=== PATIENT | female | born 1945 | race Caucasian/White ===

== ENCOUNTER 2017-04-24 15:50 | Inpatient (IN) | payer MEDICARE, OTHER ==
[~2017-04-24] VITALS: Ht 142.2 cm; Wt 50.5 kg
[~2017-04-24 15:50] MED LIST: ALPR0.5T PO; ASCO100065 PO; AZIT250T PO; CALC-125 PO; CELE200C PO; CETI10TA22 PO; CHOL10002 PO; CLON0.5T20 PO; CYCL-331 PO; ELDERBERRY JUICE; FLUT1DIS5 IH; FOLI1TAB6 PO; GLUC1CAP57 PO; GREE1CAP PO; HERBAL ALOE; HYDR16TA PO; IPRA4AER IH; L LYSINE; LECI400C PO; LEVO500T8 PO; LUBI24CA7 PO; MOME17SP NS; MULT1TAB52 PO; NIAC50TA3 PO; NYST1000 PO; OLAN5TAB9 PO; OMEP40CA5 PO; ONDA4TAB7 PO; OXYC1TAB9 PO; POTA99TA10 PO; PRED2.5T PO; RALO60TA PO; RED600TA PO; ROFL500T7 PO; SENN8.6T61 PO; TIOT18CA IH; VALS160T3 PO; VALS1TAB8 PO; VITA150T PO; VITA400C11 PO; VITA80003 PO; ZOLP5TAB PO
[2017-04-24 16:41] VITALS: BP 138/67
[2017-04-24] MEDS ORDERED: OXYC30TA PO (17:18)
[2017-04-24] MEDS ORDERED: OXYC-328 PO (17:18)
[2017-04-24 19:16] LABS: BASO % 1 % (0-3); EOS # 0.2 x10^3/uL (0.0-0.7); EOS % 2 % (0-3); HEMATOCRIT 29.8 % (36.0-47.0); HEMOGLOBIN 10.1 g/dL (12.0-15.5); LYMPH # 1.9 x10^3/uL (1.0-4.8); LYMPH % 24 % (24-48); MEAN CORPUSCULAR HEMOGLOBIN 26 pg (25-35); MEAN CORPUSCULAR HGB CONC 34 g/dL (31-37); MEAN CORPUSCULAR VOLUME 77 fL (79-100); MONO # 0.7 x10^3/uL (0.0-1.1); MONO % 9 % (0-9); NEUT # 5.2 x10^3uL (1.8-7.7); NEUT % 65 % (31-73); PLATELET COUNT 260 x10^3/uL (140-400); RED BLOOD COUNT 3.86 x10^6/uL (3.50-5.40); RED CELL DISTRIBUTION WIDTH 17.2 % (11.5-14.5)
[2017-04-24] MEDS: oxyCODONE/APAP 10/325 1 TAB TABLET PO PRN (19:26)
[2017-04-24 19:33] LABS: ALBUMIN/GLOBULIN RATIO 1.1 (1.0-1.7); CALCIUM 8.3 mg/dL (8.5-10.1); CREATININE 0.9 mg/dL (0.6-1.0); GFR 61.4; POTASSIUM 3.3 mmol/L (3.5-5.1); TOTAL BILIRUBIN 0.3 mg/dL (0.2-1.0); TOTAL PROTEIN 5.8 g/dL (6.4-8.2)
[2017-04-24] MEDS ORDERED: IV NORMAL SALINE 1,000ML 1,000 ML IV SCH (19:45)
[2017-04-24 19:52] VITALS: BP 143/68
[2017-04-24] MEDS ORDERED: PRED5TAB PO (20:25)
[2017-04-24] MEDS ORDERED: ALBU2.5V5 NEB (20:26)
[2017-04-24] MEDS ORDERED: BUDE0.5A11 IH (20:27)
[2017-04-24] MEDS ORDERED: GUAI600T28 PO (20:28)
[2017-04-24] MEDS ORDERED: TAMS0.4C2 PO (20:29)
[2017-04-24] MEDS ORDERED: AZEL23SP NS (20:30)
[2017-04-24] MEDS ORDERED: ALOE25CA PO (20:30)
[2017-04-24] MEDS ORDERED: CALC600T23 PO (20:31)
[2017-04-24] MEDS ORDERED: POTA25TA9 PO (20:32)
[2017-04-24] MEDS ORDERED: LACT1CAP29 PO (20:33)
[2017-04-24] MEDS ORDERED: LABE100T3 PO (20:33)
[2017-04-24] MEDS ORDERED: LABE200T2 PO (20:35)
--- NOTE | 2017-04-24 21:25 | RAD ---
Single view chest Indication: [id number] IP: Cough, congestion, weakness tonight. Old image sent from 03/16/15 for comparison Comparison: March 16, 2015 Findings: The heart size is normal. Pulmonary vasculature is within normal limits. No pleural effusion, consolidation, or pneumothorax. Impression: No acute disease of the chest. Electronically signed by: Juan Black MD (04/24/2017 9:22 PM) [facility]
[2017-04-24 23:14] VITALS: BP 132/75
[2017-04-24] MEDS ORDERED: MAGNESIUM HYDROXIDE 2,400 MG/30 ML ORAL.SUSP. PO PRN (23:30)
[2017-04-24] MEDS ORDERED: NON FORMULARY ITEM (Ipratropium/Albuterol Sulfate (Combivent Respimat Inhal) 4 GM) IH PRN (23:30)
[2017-04-24] MEDS ORDERED: ACETAMINOPHEN 325 MG TABLET PO PRN (23:30)
[2017-04-24] MEDS ORDERED: ELECTROLYTE (NON-ICU) PROTOCOL MC PRN (23:30)
[2017-04-24] MEDS ORDERED: 0.9 % SODIUM CHLORIDE 10 ML DISP.SYRIN. IV PRN (23:30)
[2017-04-24] MEDS ORDERED: ALBUTEROL SULFATE 2.5 MG/3 ML NEBU. NEB PRN (23:30)
[2017-04-24 23:34] VITALS: BP 118/58
--- NOTE | 2017-04-24 23:42 | PDOC ---
PROGRESS NOTES Assessment 1. Severe hyponatremia: Notified by nursing staff at 2315 that pt direct admitted by Dr. Hernandez earlier this evening from [facility] due to "low sodium." I was told that pt was hospitalized recently at [facility] and was in rehab at [facility]. Per nurse, pt is on 75 mL/hr of normal saline. After reviewing her H&P and d/c summary from [facility], as well as her nephrology consultation and labs/ radiology procedures, I determined that pt had been treated with an initial hypertonic saline bolus on arrival to [facility] on 04/07. Her sodium corrected quite rapidly. It was thought to be low due to her HCTZ, and this was discontinued. Pt had also been on Levaquin prior to admission in March. Her sodium was reported to have been 118 in her PCP's hoffice prior to that admission in March. Per nurse, pt is stable but becoming agitated. She apparently has a history of dementia (mild), and was taken off Fentanyl patch while in the hospital previously. She was also treated for urinary retention with some hydronephrosis. She had a catheter placed by urology, but that has apparently been discontinued since she left the hospital. I have ordered accuchecks, neuro checks, seizure precautions, hypertonic saline at 50/hr for 2 hrs with a f /u BMP every 2 hours for the next 12 hours. Goal is to correct the sodium by 1 unit/hr. I would like to see her up to 123 or 124 after the bolus. Following the hypertonic saline we will give normal saline and PRN hypertonic if rate of correction falls off. Check urine sodium and creat. SIADH has not been ruled out, though the rapid rate of correction that occurred at [facility] would imply that is not the issue. I have restarted her home meds that are not likely to cause this problem. Her CXR is consistent w/ COPD, and we have continued her maximal bronchodilator therapy. Pt is a full code per nursing. Heparin for DVT prophylaxis. I have asked that they place a peguero in case her retention is contributing to her electrolyte issues. Hypokalemia COPD Urinary retention Problems: Plan of Care: see other orders Objective Vital Signs Date Time Temp Pulse Resp B/P (MAP) Pulse Ox O2 Delivery O2 Flow Rate FiO2 04/24/17 23:14 97.4 62 11 132/75 (94) 98 Room Air Review of Relevant I have reviewed the following items roxie (where applicable) has been applied. Labs Laboratory Tests Test 04/24/17 19:04 White Blood Count 8.0 x10^3/uL (4.0-11.0) Red Blood Count 3.86 x10^6/uL (3.50-5.40) Hemoglobin 10.1 g/dL (12.0-15.5) Hematocrit 29.8 % (36.0-47.0) Mean Corpuscular Volume 77 fL (79-100) Mean Corpuscular Hemoglobin 26 pg (25-35) Mean Corpuscular Hemoglobin Concent 34 g/dL (31-37) Red Cell Distribution Width 17.2 % (11.5-14.5) Platelet Count 260 x10^3/uL (140-400) Neutrophils (%) (Auto) 65 % (31-73) Lymphocytes (%) (Auto) 24 % (24-48) Monocytes (%) (Auto) 9 % (0-9) Eosinophils (%) (Auto) 2 % (0-3) Basophils (%) (Auto) 1 % (0-3) Neutrophils # (Auto) 5.2 x10^3uL (1.8-7.7) Lymphocytes # (Auto) 1.9 x10^3/uL (1.0-4.8) Monocytes # (Auto) 0.7 x10^3/uL (0.0-1.1) Eosinophils # (Auto) 0.2 x10^3/uL (0.0-0.7) Basophils # (Auto) 0.0 x10^3/uL (0.0-0.2) Sodium Level 121 mmol/L (136-145) Potassium Level 3.3 mmol/L (3.5-5.1) Chloride Level 89 mmol/L (98-107) Carbon Dioxide Level 22 mmol/L (21-32) Anion Gap 10 (6-14) Blood Urea Nitrogen 13 mg/dL (7-20) Creatinine 0.9 mg/dL (0.6-1.0) Estimated GFR (Cockcroft-Gault) 61.4 BUN/Creatinine Ratio 14 (6-20) Glucose Level 171 mg/dL (70-99) Calcium Level 8.3 mg/dL (8.5-10.1) Total Bilirubin 0.3 mg/dL (0.2-1.0) Aspartate Amino Transf (AST/SGOT) 16 U/L (15-37) Alanine Aminotransferase (ALT/SGPT) 21 U/L (14-59) Alkaline Phosphatase 70 U/L (46-116) Total Protein 5.8 g/dL (6.4-8.2) Albumin 3.0 g/dL (3.4-5.0) Albumin/Globulin Ratio 1.1 (1.0-1.7) Medications Current Medications Oxycodone/ Acetaminophen (Percocet 10/325) 1 tab PRN Q6HRS PRN PO PAIN Last administered on 04/24/17 19:26; Start 04/24/17 at 17:00 Sodium Chloride 1,000 ml @ 75 mls/hr [id number] IV Last administered on 20:44; Start 04/24/17 at 19:45 Sodium Chloride (Normal Saline Flush) 3 ml PRN DAILY PRN IV AFTER MEDS AND BLOOD DRAWS; Start 04/24/17 at 23:30; Status UNV Acetaminophen (Tylenol) 650 mg PRN Q6HRS PRN PO Headaches, Temp > 101.5F; Start 04/24/17 at 23:30; Status UNV Magnesium Hydroxide (Milk Of Magnesia) 2,400 mg PRN Q12HR PRN PO CONSTIPATION; Start 04/24/17 at 23:30; Status UNV Calcium Carbonate/ Glycine (Tums) 500 mg PRN Q3HRS PRN PO HEARTBURN / GAS; Start 04/24/17 at 23:30; Status UNV Info 1 ea CONT PRN PRN MC SEE COMMENTS; Start 04/24/17 at 23:30; Status UNV Heparin Sodium (Porcine) 5,000 unit Q12H SQ ; Start 04/24/17 at 23:30; Status UNV Sodium Chloride 500 ml @ 50 mls/hr DAILY IV ; Start 04/25/17 at 09:00; Status UNV Active Scripts Active Reported Labetalol Hcl 200 Mg Tablet 200 Mg PO TID Probiotic (Lactobacillus Combo No.10) 1 Each Capsule 1 Each PO DAILY Effer-K 25 Meq Tablet Eff (Potassium Bicarbonate/Cit Ac) 25 Meq Tablet.eff 25 Meq PO DAILY Calcium Carbonate 600 Mg Tablet 1,200 Mg PO DAILY Dymista Nasal [place] (Azelastine/Fluticasone) 23 Gm [place].pump 23 Gm NS BID Aloe Vera 25 Mg Capsule 25 Mg PO BID Tamsulosin Hcl 0.4 Mg Cap.er.24h 0.4 Mg PO DAILY Guaifenesin 600 Mg Tablet.er 600 Mg PO BID Budesonide 0.5 Mg/2 Ml Ampul.neb 0.5 Mg IH BID Albuterol Sulfate Neb Soln (Albuterol Sulfate) 2.5 Mg/3 Ml Vial.neb 2.5 Mg NEB PRN Q2HR PRN Prednisone 5 Mg Tablet 5 Mg PO DAILY Percocet 10-325 Mg Tablet (Oxycodone Hcl/Acetaminophen) 1 Each Tablet 1 Tab PO PRN Q6HRS PRN Oxycodone Hcl 30 Mg Tablet 1 Tab PO BID Combivent Respimat Inhal (Ipratropium/Albuterol Sulfate) 4 Gm Aer.w.adap 4 Gm IH QID PRN Multivitamins (Multivitamin) 1 Each Tablet 1 Tab PO DAILY Glucosamine Chondroitin Cap (Glucosamine/Chondroitin Sulf A) 1 Each Capsule 1 Each PO DAILY Super B Complex (Vitamin B Complex & Vit C No.4) 150 Mg Tablet 150 Mg PO DAILY Green Tea (Green Tea [place] Extract) 1 Each Capsule 1 Each PO DAILY Vitamin A 8,000 Unit Capsule 8,000 Unit PO DAILY Vitamin C (Ascorbic Acid) 1,000 Mg Tab.chew 1,000 Mg PO DAILY Vitamin E 400 Unit Capsule 400 Unit PO DAILY Vitamin D (Cholecalciferol (Vitamin D3)) 1,000 Unit Tablet 1,000 Unit PO DAILY Centrum Multivitamin Tab Chew (Folic Acid/Mv,Fe,Other Min) 1 Each Tab.chew 1 Each PO DAILY Daliresp (Roflumilast) 500 Mcg Tablet 500 Mcg PO DAILY Amitiza (Lubiprostone) 24 Mcg Capsule 24 Mcg PO BID Zyrtec (Cetirizine Hcl) 10 Mg Tablet 10 Mg PO DAILY Cyclobenzaprine Hcl 10 Mg Tablet 10 Mg PO DAILY Spiriva (Tiotropium [place]) 18 Mcg Cap.w.dev 18 Mcg IH DAILY Advair 500-50 Diskus (Fluticasone/Salmeterol) 1 Each Disk.w.dev 1 Each IH BID Clonazepam Odt (Clonazepam) 0.5 Mg Tab.rapdis 0.5 Mg PO DAILY Celebrex (Celecoxib) 200 Mg Capsule 200 Mg PO BID Evista (Raloxifene Hcl) 60 Mg Tablet 60 Mg PO DAILY Omeprazole 40 Mg Capsule.dr 40 Mg PO DAILY Vitals/I & O Vital Sign - Last 24 Hours 04/24/17 04/24/17 04/24/17 16:41 19:52 23:14 Temp 98.7 97.4 Pulse 69 69 62 Resp 16 23 11 B/P (MAP) 138/67 (90) 143/68 (93) 132/75 (94) Pulse Ox 98 98 O2 Delivery Room Air Room Air Room Air MALACHI RIVERA MD Apr 24, 2017 23:42
[2017-04-24] MEDS ORDERED: SODIUM CHLORIDE 3 % PREMIX 500 ML IV ONE (23:45)
[2017-04-25] VITALS (16 sets, daily range): BP systolic 113–180; BP diastolic 47–97
[2017-04-25] MEDS ORDERED: LORazepam 0.5 MG TABLET PO PRN
[2017-04-25] MEDS ORDERED: LORazepam 2 MG/ML VIAL IV PRN
[2017-04-25] MEDS ORDERED: ALBUTEROL SULFATE 2.5 MG/3 ML NEBU. NEB PRN (00:30)
[2017-04-25] MEDS: HEPARIN PF for SUB-Q USE 5,000 UNIT/0.5 ML VIAL. SQ SCH ×4 (00:49→21:17)
[2017-04-25] MEDS ORDERED: IV NORMAL SALINE 500 ML BAG ONE (01:00)
[2017-04-25] MEDS ORDERED: SODIUM CHLORIDE 2.5 MEQ/ML IV ONE (01:00)
[2017-04-25] MEDS: oxyCODONE/APAP 10/325 1 TAB TABLET PO PRN ×4 (01:29→18:12)
[2017-04-25] MEDS: POTASSIUM CL 20MEQ IN 0.9%NACL 1,000 ML IV SCH ×3 (02:02→21:03)
[2017-04-25 02:17] LABS: BACTERIA,URINE MANY /HPF (0-FEW); BILIRUBIN,URINE NEG (NEG); CLARITY,URINE HAZY; COLOR,URINE YELLOW; GLUCOSE,URINE NEG (NEG); NITRITE,URINE POS (NEG); RBC,URINE OCC /HPF (0-2); SQUAMOUS EPITHELIAL CELL,UR OCC /LPF; UROBILINOGEN,URINE 0.2 mg/dL (0.2 mg/dL); WBC,URINE >40 /HPF (0-4)
[2017-04-25 02:19] LABS: CREATININE 0.9 mg/dL (0.6-1.0); GFR 61.4; POTASSIUM 3.9 mmol/L (3.5-5.1)
[2017-04-25 04:20] LABS: BASO # 0.1 x10^3/uL (0.0-0.2); BASO % 1 % (0-3); EOS # 0.2 x10^3/uL (0.0-0.7); EOS % 2 % (0-3); HEMATOCRIT 31.5 % (36.0-47.0); HEMOGLOBIN 10.5 g/dL (12.0-15.5); LYMPH # 2.3 x10^3/uL (1.0-4.8); LYMPH % 24 % (24-48); MEAN CORPUSCULAR HEMOGLOBIN 26 pg (25-35); MEAN CORPUSCULAR HGB CONC 33 g/dL (31-37); MEAN CORPUSCULAR VOLUME 78 fL (79-100); MONO # 0.9 x10^3/uL (0.0-1.1); MONO % 9 % (0-9); NEUT % 63 % (31-73); PLATELET COUNT 277 x10^3/uL (140-400); RED BLOOD COUNT 4.05 x10^6/uL (3.50-5.40); RED CELL DISTRIBUTION WIDTH 17.1 % (11.5-14.5); WHITE BLOOD COUNT 9.4 x10^3/uL (4.0-11.0)
[2017-04-25 04:32] LABS: ALBUMIN 3.1 g/dL (3.4-5.0); CALCIUM 8.6 mg/dL (8.5-10.1); CREATININE 0.8 mg/dL (0.6-1.0); GFR 70.3; POTASSIUM 3.9 mmol/L (3.5-5.1); TOTAL BILIRUBIN 0.4 mg/dL (0.2-1.0); TOTAL PROTEIN 6.1 g/dL (6.4-8.2)
[2017-04-25] MEDS: ALBUTEROL SULFATE 2.5 MG/3 ML NEBU. NEB SCH ×4 (05:50→20:27)
[2017-04-25 06:40] LABS: CALCIUM 8.6 mg/dL (8.5-10.1); CREATININE 0.7 mg/dL (0.6-1.0); POTASSIUM 3.4 mmol/L (3.5-5.1)
[2017-04-25] MEDS ORDERED: POTASSIUM CHLORIDE 20 MEQ TABLET.ER. PO ONE (07:00)
[2017-04-25] MEDS: PANTOPRAZOLE 40 MG TABLET. PO SCH (07:34)
[2017-04-25] MEDS ORDERED: NON FORMULARY ITEM (Fluticasone/Salmeterol (Advair 500-50 Diskus) 1 EACH) IH SCH (09:00)
[2017-04-25] MEDS ORDERED: ALOE VERA 25 MG PO SCH (09:00)
[2017-04-25] MEDS: POTASSIUM BICARB 25 MEQ EFFERVESCENT TAB. PO SCH (09:00)
[2017-04-25] MEDS ORDERED: AZELASTINE NASAL SPRAY 30ML BOTTLE. NS SCH ×2 (09:00)
[2017-04-25] MEDS ORDERED: BUDESONIDE 0.5 MG/2 ML NEBU IH SCH (09:00)
[2017-04-25 09:30] LABS: CALCIUM 8.2 mg/dL (8.5-10.1); CREATININE 0.7 mg/dL (0.6-1.0)
[2017-04-25] MEDS: LACTOBACILLUS ACIDOPH & BULGAR 1 TABLET. PO SCH (09:40)
[2017-04-25] MEDS: FLUTICASONE 50MCG/NASAL SPRAY 16GM BOTTLE. NS SCH ×2 (09:40→21:03)
[2017-04-25] MEDS: clonazePAM 0.5 MG TABLET PO SCH (09:41)
[2017-04-25] MEDS: predniSONE 5 MG TABLET PO SCH (09:41)
[2017-04-25] MEDS: ROFLUMILAST 500 MCG TABLET PO SCH (09:41)
[2017-04-25] MEDS: TAMSULOSIN 0.4 MG CAP.ER.24H. PO SCH (09:41)
[2017-04-25] MEDS: MULTIVITAMIN with MINERAL TABLET. PO SCH (09:43)
[2017-04-25] MEDS: LABETALOL HCL 200 MG TABLET PO SCH ×3 (09:43→21:02)
[2017-04-25] MEDS: LUBIPROSTONE 24 MCG CAPSULE PO SCH ×2 (09:44→20:55)
[2017-04-25] MEDS: ASCORBIC ACID 500 MG TABLET PO SCH (09:44)
[2017-04-25] MEDS ORDERED: FOSFOMYCIN TROMETHAMINE 3 GM PACKET PO ONE (10:00)
--- NOTE | 2017-04-25 10:04 | PDOC1 ---
History of Present Illness Reason for Visit: Weakness History of Present Illness Pt has been getting rehab at [facility] for the past 2 weeks after having been admitted to [facility] at the end of March for hyponatremia, COPD, and hypokalemia. She also was found to have profound urinary retention. Pt's sodium was found to be low at 122 at [facility] so she was direct admitted by Dr. Hernandez. She tells me this morning that she stopped taking the diuretic after the last hospital stay, and the medication administration record from [facility] confirms that. She says she doesn't normally take daily prednisone, that it is only as needed for when her COPD acts up. She is not sure about any new medications. Her family member present today states that her difficult urinating was "solved " at [facility], and she no longer required the urinary catheter. She denies excessive water intake. Denies excessive swelling. No known history of liver disease. Pt's urine sodium 2 days after admission at [facility] was 26, which is on the low side. Pt was treated w/ hypertonic, then normal saline and sodium corrected rather quickly, was in the mid 130's at discharge. Today she feels "fine." Per nursing, she continues to be confused and periodically pulls at her IV and it is difficult to get her to take medications. Last night we had to stop the hypertonic saline infusion as she appeared to have a bad reaction. There have been no fevers, cough, diarrhea, vomiting, abdominal pain, etc. She does have a known umbilical hernia. Urinary catheter was placed last night w/ 600 cc urine resulted. Allergies: Coded Allergies: fentanyl (Verified Allergy, Severe, 04/24/17) Penicillins (Verified Allergy, Intermediate, 08/11/14) Sulfa (Sulfonamide Antibiotics) (Verified Allergy, Intermediate, 04/25/17) levofloxacin (Verified Allergy, Intermediate, 08/11/14) Past Medical History Cardiac: HTN Pulmonary: COPD GI: Diverticulosis, Other (Cholelithiasis, Umbilical hernia) Heme/Onc: Anemia NOS Past Surgical History: No pertinent history Family History: Hypertension Past Social History Smoke: Quit Alcohol: occassional Drugs: None Lives: with Family (Currently in [facility], normally lives w/ her family) Review of Systems Review Of Systems Fourteen system , review of systems has been reviewed. See HPI for pertinent positives and negative responses, other bourgeois all other systems are negative, non pertinent or non contributory Constitutional: No: Fever, Chills, Sweats Eyes: No: Blurry vision, Double vision ENT: No: Ear pain, Nose pain, Mouth pain Respiratory: No: Cough, Shortness of breath Cardiovascular: No: Chest Pain, Palpitations, Edema, Lt Headedness Gastrointestinal: No: Nausea, Vomiting, Abdominal Pain, Diarrhea, Constipation , Melena, Hematochezia Genitourinary: No: Dysuria, Henaturia Musculoskeletal: No: Joint Swelling, Muscular Weakness SKIN: YES: Other (Bruising; skin tears on RLE (family reports from [facility] [facility])) Neurological: YES: Memory Loss (chronic, mild), No: Dizziness, Headaches, Tremors Allergies: Coded Allergies: fentanyl (Verified Allergy, Severe, 04/24/17) Penicillins (Verified Allergy, Intermediate, 08/11/14) Sulfa (Sulfonamide Antibiotics) (Verified Allergy, Intermediate, 04/25/17) levofloxacin (Verified Allergy, Intermediate, 08/11/14) Medications Current Medications Oxycodone/ Acetaminophen (Percocet 10/325) 1 tab PRN Q6HRS PRN PO PAIN Last administered on 04/25/17 08:33; Start 04/24/17 at 17:00 Sodium Chloride 1,000 ml @ 75 mls/hr [id number] IV Last administered on 20:44; Start 04/24/17 at 19:45 Sodium Chloride (Normal Saline Flush) 3 ml PRN DAILY PRN IV AFTER MEDS AND BLOOD DRAWS; Start 04/24/17 at 23:30 Acetaminophen (Tylenol) 650 mg PRN Q6HRS PRN PO Headaches, Temp > 101.5F; Start 04/24/17 at 23:30 Magnesium Hydroxide (Milk Of Magnesia) 2,400 mg PRN Q12HR PRN PO CONSTIPATION; Start 04/24/17 at 23:30 Calcium Carbonate/ Glycine (Tums) 500 mg PRN Q3HRS PRN PO HEARTBURN / GAS; Start 04/24/17 at 23:30 Info 1 ea CONT PRN PRN MC SEE COMMENTS; Start 04/24/17 at 23:30 Heparin Sodium (Porcine) 5,000 unit Q12H SQ Last administered on 04/25/17 00: 49; Start 04/24/17 at 23:45 Sodium Chloride 500 ml @ 50 mls/hr ONCE ONCE IV Last administered on t 01:09; Start 04/24/17 at 23:45; Stop 04/25/17 at 09:44; Status Future Hold Albuterol Sulfate (Ventolin) 2.5 mg PRN Q2HR PRN NEB SHORTNESS OF BREATH; Start 04/24/17 at 23:30; Stop 04/25/17 at 01:51; Status DC Budesonide (Pulmicort) 0.5 mg BID IH ; Start 04/25/17 at 09:00; Stop 04/25/17 at 09:00; Status DC Guaifenesin (Mucinex Er) 600 mg BID PO ; Start 04/25/17 at 09:00 Labetalol HCl (Trandate) 200 mg TID PO ; Start 04/25/17 at 09:00 Lubiprostone (Amitiza) 24 mcg BID PO ; Start 04/25/17 at 09:00 Potassium Bicarbonate (Klyte/Cl) 25 meq DAILY PO ; Start 04/25/17 at 09:00 Prednisone (Prednisone) 5 mg DAILY PO ; Start 04/25/17 at 09:00 Tamsulosin HCl (Flomax) 0.4 mg DAILY PO ; Start 04/25/17 at 09:00 Non-Formulary Medication 25 mg BID PO ; Start 04/25/17 at 09:00; Stop 04/25/17 at 09:00; Status DC Ascorbic Acid (Vitamin C) 1,000 mg DAILY PO ; Start 04/25/17 at 09:00 Azelastine HCl (Astelin) 2 spray BID NS ; Start 04/25/17 at 09:00; Stop at 09:00; Status DC Clonazepam (KlonoPIN) 0.5 mg DAILY PO ; Start 04/25/17 at 09:00 Non-Formulary Medication 1 each BID IH ; Start 04/25/17 at 09:00; Status UNV Multivitamins/ Calcium (Thera-M Plus) 1 tab DAILY PO ; Start 04/25/17 at 09:00 Non-Formulary Medication 4 gm QID PRN IH SHORTNESS OF BREATH; Start 04/24/17 at 23:30; Status UNV Lactobacillus Acidophilus (Bacid, Beth-Bid) 1 tab DAILY PO ; Start 04/25/17 at 09:00 Pantoprazole Sodium (Protonix) 40 mg DAILYAC PO Last administered on 04/25/17 07:34; Start 04/25/17 at 07:30 Lorazepam (Ativan) 0.5 mg PRN Q8HRS PRN IV ANXIETY / AGITATION Last administered on 04/25/17 00:27; Start 04/25/17 at 00:00; Status Future Hold Lorazepam (Ativan) 0.5 mg PRN Q8HRS PRN PO ANXIETY / AGITATION; Start 04/25/17 at 00:00; Status Future Hold Albuterol Sulfate (Ventolin) 2.5 mg PRN QID PRN NEB SHORTNESS OF BREATH; Start 04/25/17 at 00:30 Potassium Chloride/Sodium Chloride 1,000 ml @ 100 mls/hr Q10H IV Last administered on 04/25/17 02:02; Start 04/25/17 at 01:45 Albuterol Sulfate (Ventolin) 2.5 mg RTQID NEB ; Start 04/25/17 at 08:00 Budesonide (Pulmicort) 0.5 mg RTBID NEB ; Start 04/25/17 at 08:00 Potassium Chloride (Klor-Con) 40 meq 1X ONCE PO Last administered on 07:34; Start 04/25/17 at 07:00; Stop 04/25/17 at 07:01; Status DC Fluticasone Propionate (Flonase) 1 spray BID NS ; Start 04/25/17 at 09:00 Azelastine HCl (Astelin) 1 spray BID NS ; Start 04/25/17 at 09:00 Sodium Chloride (Iv Sodium Chloride 0.9% 500ml) 500 ml STK-MED ONCE .ROUTE ; Start 04/25/17 at 01:00; Stop 04/25/17 at 07:32; Status DC Sodium Chloride (Sodium Chloride) 5 meq STK-MED ONCE IV ; Start 04/25/17 at 01: 00; Stop 04/25/17 at 07:32; Status DC Fosfomycin Tromethamine (Monurol) 3 gm 1X ONCE PO ; Start 04/25/17 at 09:30; Stop 04/25/17 at 09:31; Status UNV Active Scripts Active Reported Labetalol Hcl 200 Mg Tablet 200 Mg PO TID Probiotic (Lactobacillus Combo No.10) 1 Each Capsule 1 Each PO DAILY Effer-K 25 Meq Tablet Eff (Potassium Bicarbonate/Cit Ac) 25 Meq Tablet.eff 25 Meq PO DAILY Calcium Carbonate 600 Mg Tablet 1,200 Mg PO DAILY Dymista Nasal [place] (Azelastine/Fluticasone) 23 Gm [place].pump 23 Gm NS BID Aloe Vera 25 Mg Capsule 25 Mg PO BID Tamsulosin Hcl 0.4 Mg Cap.er.24h 0.4 Mg PO DAILY Guaifenesin 600 Mg Tablet.er 600 Mg PO BID Budesonide 0.5 Mg/2 Ml Ampul.neb 0.5 Mg IH BID Albuterol Sulfate Neb Soln (Albuterol Sulfate) 2.5 Mg/3 Ml Vial.neb 2.5 Mg NEB PRN Q2HR PRN Prednisone 5 Mg Tablet 5 Mg PO DAILY Percocet 10-325 Mg Tablet (Oxycodone Hcl/Acetaminophen) 1 Each Tablet 1 Tab PO PRN Q6HRS PRN Oxycodone Hcl 30 Mg Tablet 1 Tab PO BID Combivent Respimat Inhal (Ipratropium/Albuterol Sulfate) 4 Gm Aer.w.adap 4 Gm IH QID PRN Multivitamins (Multivitamin) 1 Each Tablet 1 Tab PO DAILY Glucosamine Chondroitin Cap (Glucosamine/Chondroitin Sulf A) 1 Each Capsule 1 Each PO DAILY Super B Complex (Vitamin B Complex & Vit C No.4) 150 Mg Tablet 150 Mg PO DAILY Green Tea (Green Tea [place] Extract) 1 Each Capsule 1 Each PO DAILY Vitamin A 8,000 Unit Capsule 8,000 Unit PO DAILY Vitamin C (Ascorbic Acid) 1,000 Mg Tab.chew 1,000 Mg PO DAILY Vitamin E 400 Unit Capsule 400 Unit PO DAILY Vitamin D (Cholecalciferol (Vitamin D3)) 1,000 Unit Tablet 1,000 Unit PO DAILY Centrum Multivitamin Tab Chew (Folic Acid/Mv,Fe,Other Min) 1 Each Tab.chew 1 Each PO DAILY Daliresp (Roflumilast) 500 Mcg Tablet 500 Mcg PO DAILY Amitiza (Lubiprostone) 24 Mcg Capsule 24 Mcg PO BID Zyrtec (Cetirizine Hcl) 10 Mg Tablet 10 Mg PO DAILY Cyclobenzaprine Hcl 10 Mg Tablet 10 Mg PO DAILY Spiriva (Tiotropium [place]) 18 Mcg Cap.w.dev 18 Mcg IH DAILY Advair 500-50 Diskus (Fluticasone/Salmeterol) 1 Each Disk.w.dev 1 Each IH BID Clonazepam Odt (Clonazepam) 0.5 Mg Tab.rapdis 0.5 Mg PO DAILY Celebrex (Celecoxib) 200 Mg Capsule 200 Mg PO BID Evista (Raloxifene Hcl) 60 Mg Tablet 60 Mg PO DAILY Omeprazole 40 Mg Capsule.dr 40 Mg PO DAILY Exam Vital Signs Vital Signs Date Time Temp Pulse Resp B/P (MAP) Pulse Ox O2 Delivery O2 Flow Rate FiO2 04/25/17 07:30 74 22 149/66 (93) 98 Room Air 04/25/17 04:21 97.1 General Appearance: Alert, Cooperative, No acute distress, Other (Oriented x 2 (not date), able to recount most of what happened when at [facility]) HEENT: Atraumatic, PERRLA, EOMI, Mucous membr. moist/pink, Other (Neck supple, normal ROM, no JVD, no LAD) Respiratory: Other (Diminished breath sounds in the bases w/ coarse breath sounds throughout. Resp effort is non-labored.) Heart: Regular rate, Normal S1, Normal S2, No murmurs Cardiac: HTN Abdominal: Normal bowel sounds, Soft, No tenderness, No hepatospenomegaly, Other (Small umbilical hernia, reducible) Extremities: Other (DP pulses 2+ bilaterally, no significant LE edema. RLE w/ 2 bandages both C/D/I, reportedly skin tears.) Skin: No rashes Neuro: Normal gait (Slowed, can walk w/ assistance), Normal speech, Sensation intact, Cranial nerves 3-12 NL Psych/Mental Status: Mood NL Assessment/Plan Assessment/Plan 1. Severe symptomatic hyponatremia: Sodium is up to 128. Pt on NS at 100/hr. Monitoring for signs of volume overload, none seen at this point. Urine sodium pending. During stay at [facility], pt was seen by nephrology and the cause of her low sodium was felt to be her HCTZ. This was discontinued and pt has not been on it for 2 weeks. I am not certain about the cause at this time. Her urine sodium would certainly suggest hypovolemia or primary polydipsia, but there is not convincing evidence of either. SIADH is considered, but I would expect her urine sodium to be higher. Adrenal issues could be in play as well, given her low potassium. I am going to get a CT of her head and chest looking for intracranial or primary malignant causes. We will stop the q2 hour BMP's after the next check as long as sodium continuing to go up. 2. Hypokalemia: Replacement via PO and in IVF. Cont to monitor. 3. COPD: Pt stable, CXR normal, respiratory status stable. Continue home bronchodilators and 5 mg prednisone (as it is unclear how long she has been on this). 4. DVT proph: Heparin BID SQ, pt is at least moderate risk for DVT. 5. Anemia, etiology unclear: Microcytic, unclear if she has been worked up but Hgb stable. Continue PPI. Check iron studies as outpatient, would also need workup for GI losses if not done recently. 6. Mild-mod PEM: Add Ensure BID. Albumin 3.1. Pt is on the thin side, <100 lbs. 7. Disp: Pt is ICU status. Certainly expect at least 2 midnights to treat and investigate her multiple medical issues. COURSE Allergies Coded Allergies Type Severity Reaction Last Updated Verified fentanyl Allergy Severe 04/24/17 Yes Penicillins Allergy Intermediate 08/11/14 Yes Sulfa (Sulfonamide Antibiotics) Allergy Intermediate 04/25/17 Yes levofloxacin Allergy Intermediate 08/11/14 Yes Laboratory Tests Test 04/24/17 19:04 04/25/17 01:25 04/25/17 01:38 04/25/17 01:55 White Blood Count 8.0 x10^3/uL (4.0-11.0) Red Blood Count 3.86 x10^6/uL (3.50-5.40) Hemoglobin 10.1 g/dL (12.0-15.5) Hematocrit 29.8 % (36.0-47.0) Mean Corpuscular Volume 77 fL (79-100) Mean Corpuscular Hemoglobin 26 pg (25-35) Mean Corpuscular Hemoglobin Concent 34 g/dL (31-37) Red Cell Distribution Width 17.2 % (11.5-14.5) Platelet Count 260 x10^3/uL (140-400) Neutrophils (%) (Auto) 65 % (31-73) Lymphocytes (%) (Auto) 24 % (24-48) Monocytes (%) (Auto) 9 % (0-9) Eosinophils (%) (Auto) 2 % (0-3) Basophils (%) (Auto) 1 % (0-3) Neutrophils # (Auto) 5.2 x10^3uL (1.8-7.7) Lymphocytes # (Auto) 1.9 x10^3/uL (1.0-4.8) Monocytes # (Auto) 0.7 x10^3/uL (0.0-1.1) Eosinophils # (Auto) 0.2 x10^3/uL (0.0-0.7) Basophils # (Auto) 0.0 x10^3/uL (0.0-0.2) Sodium Level 121 mmol/L (136-145) 124 mmol/L (136-145) Potassium Level 3.3 mmol/L (3.5-5.1) 3.9 mmol/L (3.5-5.1) Chloride Level 89 mmol/L (98-107) 91 mmol/L (98-107) Carbon Dioxide Level 22 mmol/L (21-32) 25 mmol/L (21-32) Anion Gap 10 (6-14) 8 (6-14) Blood Urea Nitrogen 13 mg/dL (7-20) 13 mg/dL (7-20) Creatinine 0.9 mg/dL (0.6-1.0) 0.9 mg/dL (0.6-1.0) Estimated GFR (Cockcroft-Gault) 61.4 61.4 BUN/Creatinine Ratio 14 (6-20) Glucose Level 171 mg/dL (70-99) 84 mg/dL (70-99) Calcium Level 8.3 mg/dL (8.5-10.1) 9.0 mg/dL (8.5-10.1) Total Bilirubin 0.3 mg/dL (0.2-1.0) Aspartate Amino Transf (AST/SGOT) 16 U/L (15-37) Alanine Aminotransferase (ALT/SGPT) 21 U/L (14-59) Alkaline Phosphatase 70 U/L (46-116) Total Protein 5.8 g/dL (6.4-8.2) Albumin 3.0 g/dL (3.4-5.0) Albumin/Globulin Ratio 1.1 (1.0-1.7) Urine Collection Type Void Urine Color Yellow Urine Clarity Hazy Urine pH 7.0 Urine Specific [place] 1.010 Urine Protein Neg (NEG-TRACE) Urine Glucose (UA) Neg mg/dL (NEG) Urine Ketones (Stick) Neg mg/dL (NEG) Urine Blood Neg (NEG) Urine Nitrite Pos (NEG) Urine Bilirubin Neg (NEG) Urine Urobilinogen Dipstick 0.2 mg/dL (0.2 mg/dL) Urine Leukocyte Esterase Mod (NEG) Urine RBC Occ /HPF (0-2) Urine WBC >40 /HPF (0-4) Urine Squamous Epithelial Cells Occ /LPF Urine Bacteria Many /HPF (0-FEW) Urine Mucus Slight /LPF Glucose (Fingerstick) 75 mg/dL (70-99) Test 04/25/17 04:05 04/25/17 06:23 04/25/17 07:30 04/25/17 08:50 White Blood Count 9.4 x10^3/uL (4.0-11.0) Red Blood Count 4.05 x10^6/uL (3.50-5.40) Hemoglobin 10.5 g/dL (12.0-15.5) Hematocrit 31.5 % (36.0-47.0) Mean Corpuscular Volume 78 fL (79-100) Mean Corpuscular Hemoglobin 26 pg (25-35) Mean Corpuscular Hemoglobin Concent 33 g/dL (31-37) Red Cell Distribution Width 17.1 % (11.5-14.5) Platelet Count 277 x10^3/uL (140-400) Neutrophils (%) (Auto) 63 % (31-73) Lymphocytes (%) (Auto) 24 % (24-48) Monocytes (%) (Auto) 9 % (0-9) Eosinophils (%) (Auto) 2 % (0-3) Basophils (%) (Auto) 1 % (0-3) Neutrophils # (Auto) 6.0 x10^3uL (1.8-7.7) Lymphocytes # (Auto) 2.3 x10^3/uL (1.0-4.8) Monocytes # (Auto) 0.9 x10^3/uL (0.0-1.1) Eosinophils # (Auto) 0.2 x10^3/uL (0.0-0.7) Basophils # (Auto) 0.1 x10^3/uL (0.0-0.2) Sodium Level 127 mmol/L (136-145) 127 mmol/L (136-145) 128 mmol/L (136-145) Potassium Level 3.9 mmol/L (3.5-5.1) 3.4 mmol/L (3.5-5.1) 4.0 mmol/L (3.5-5.1) Chloride Level 93 mmol/L (98-107) 94 mmol/L (98-107) 97 mmol/L (98-107) Carbon Dioxide Level 27 mmol/L (21-32) 27 mmol/L (21-32) 25 mmol/L (21-32) Anion Gap 7 (6-14) 6 (6-14) 6 (6-14) Blood Urea Nitrogen 11 mg/dL (7-20) 10 mg/dL (7-20) 9 mg/dL (7-20) Creatinine 0.8 mg/dL (0.6-1.0) 0.7 mg/dL (0.6-1.0) 0.7 mg/dL (0.6-1.0) Estimated GFR (Cockcroft-Gault) 70.3 82.0 82.0 BUN/Creatinine Ratio 14 (6-20) Glucose Level 86 mg/dL (70-99) 88 mg/dL (70-99) 94 mg/dL (70-99) Calcium Level 8.6 mg/dL (8.5-10.1) 8.6 mg/dL (8.5-10.1) 8.2 mg/dL (8.5-10.1) Total Bilirubin 0.4 mg/dL (0.2-1.0) Aspartate Amino Transf (AST/SGOT) 16 U/L (15-37) Alanine Aminotransferase (ALT/SGPT) 21 U/L (14-59) Alkaline Phosphatase 68 U/L (46-116) Total Protein 6.1 g/dL (6.4-8.2) Albumin 3.1 g/dL (3.4-5.0) Albumin/Globulin Ratio 1.0 (1.0-1.7) Glucose (Fingerstick) 77 mg/dL (70-99) Current Medications Medications (Trade) Dose Ordered Sig/Branden Route PRN Reason Start Time Stop Time Status Last Admin Dose Admin Oxycodone/ Acetaminophen (Percocet 10/325) 1 tab PRN Q6HRS PRN PO PAIN 04/24/17 17:00 04/25/17 08:33 Sodium Chloride 1,000 ml @ 75 mls/hr [id number] IV 04/24/17 19:45 04/24/17 20:44 Sodium Chloride (Normal Saline Flush) 3 ml PRN DAILY PRN IV AFTER MEDS AND BLOOD DRAWS 04/24/17 23:30 Acetaminophen (Tylenol) 650 mg PRN Q6HRS PRN PO Headaches, Temp > 101.5F 04/24/17 23:30 Magnesium Hydroxide (Milk Of Magnesia) 2,400 mg PRN Q12HR PRN PO CONSTIPATION 04/24/17 23:30 Calcium Carbonate/ Glycine (Tums) 500 mg PRN Q3HRS PRN PO HEARTBURN / GAS 04/24/17 23:30 Info 1 ea CONT PRN PRN MC SEE COMMENTS 04/24/17 23:30 Heparin Sodium (Porcine) 5,000 unit Q12H SQ 04/24/17 23:45 04/25/17 00:49 Sodium Chloride 500 ml @ 50 mls/hr ONCE ONCE IV 04/24/17 23:45 04/25/17 09:44 Future Hold 04/25/17 01:09 Albuterol Sulfate (Ventolin) 2.5 mg PRN Q2HR PRN NEB SHORTNESS OF BREATH 04/24/17 23:30 04/25/17 01:51 DC Budesonide (Pulmicort) 0.5 mg BID IH 04/25/17 09:00 04/25/17 09:00 DC Guaifenesin (Mucinex Er) 600 mg BID PO 04/25/17 09:00 Labetalol HCl (Trandate) 200 mg TID PO 04/25/17 09:00 Lubiprostone (Amitiza) 24 mcg BID PO 04/25/17 09:00 Potassium Bicarbonate (Klyte/Cl) 25 meq DAILY PO 04/25/17 09:00 Prednisone (Prednisone) 5 mg DAILY PO 04/25/17 09:00 Tamsulosin HCl (Flomax) 0.4 mg DAILY PO 04/25/17 09:00 Non-Formulary Medication 25 mg BID PO 04/25/17 09:00 04/25/17 09:00 DC Ascorbic Acid (Vitamin C) 1,000 mg DAILY PO 04/25/17 09:00 Azelastine HCl (Astelin) 2 spray BID NS 04/25/17 09:00 04/25/17 09:00 DC Clonazepam (KlonoPIN) 0.5 mg DAILY PO 04/25/17 09:00 Non-Formulary Medication 1 each BID IH 04/25/17 09:00 UNV Multivitamins/ Calcium (Thera-M Plus) 1 tab DAILY PO 04/25/17 09:00 Non-Formulary Medication 4 gm QID PRN IH SHORTNESS OF BREATH 04/24/17 23:30 UNV Lactobacillus Acidophilus (Bacid, Beth-Bid) 1 tab DAILY PO 04/25/17 09:00 Pantoprazole Sodium (Protonix) 40 mg DAILYAC PO 04/25/17 07:30 04/25/17 07:34 Lorazepam (Ativan) 0.5 mg PRN Q8HRS PRN IV ANXIETY / AGITATION 04/25/17 00:00 Future Hold 04/25/17 00:27 Lorazepam (Ativan) 0.5 mg PRN Q8HRS PRN PO ANXIETY / AGITATION 04/25/17 00:00 Future Hold Albuterol Sulfate (Ventolin) 2.5 mg PRN QID PRN NEB SHORTNESS OF BREATH 04/25/17 00:30 Potassium Chloride/Sodium Chloride 1,000 ml @ 100 mls/hr Q10H IV 04/25/17 01:45 04/25/17 02:02 Albuterol Sulfate (Ventolin) 2.5 mg RTQID NEB 04/25/17 08:00 Budesonide (Pulmicort) 0.5 mg RTBID NEB 04/25/17 08:00 Potassium Chloride (Klor-Con) 40 meq 1X ONCE PO 04/25/17 07:00 04/25/17 07:01 DC 04/25/17 07:34 Fluticasone Propionate (Flonase) 1 spray BID NS 04/25/17 09:00 Azelastine HCl (Astelin) 1 spray BID NS 04/25/17 09:00 Sodium Chloride (Iv Sodium Chloride 0.9% 500ml) 500 ml STK-MED ONCE .ROUTE 04/25/17 01:00 04/25/17 07:32 DC Sodium Chloride (Sodium Chloride) 5 meq STK-MED ONCE IV 04/25/17 01:00 04/25/17 07:32 DC Fosfomycin Tromethamine (Monurol) 3 gm 1X ONCE PO 04/25/17 09:30 04/25/17 09:31 UNV I & O 04/25/17 00:00 Intake Total 345 ml Balance 345 ml Vital Signs Date Time Temp Pulse Resp B/P (MAP) Pulse Ox O2 Delivery O2 Flow Rate FiO2 04/25/17 07:30 74 22 149/66 (93) 98 Room Air 04/25/17 04:21 97.1 CXR: Single view chest Indication: [id number] IP: Cough, congestion, weakness tonight. Old image sent from 03/16/15 for comparison Comparison: March 16, 2015 Findings: The heart size is normal. Pulmonary vasculature is within normal limits. No pleural effusion, consolidation, or pneumothorax. Impression: No acute disease of the chest. MALACHI RIVERA MD Apr 25, 2017 10:04
[2017-04-25] MEDS: BUDESONIDE 0.5 MG/2 ML NEBU NEB SCH ×2 (10:14→20:27)
[2017-04-25 11:34] LABS: CALCIUM 8.8 mg/dL (8.5-10.1); CREATININE 0.7 mg/dL (0.6-1.0)
--- NOTE | 2017-04-25 11:36 | RAD ---
One or more of the following individualized dose reduction techniques were utilized for this examination: 1. Automated exposure control 2. Adjustment of the mA and/or kV according to patient size 3. Use of iterative reconstruction technique CT brain without contrast. History: Weakness, hyponatremia CT scan of brain was done without contrast. There is no intracranial hemorrhage or subdural hematoma. Ventricles are normal in size. There is no shift of the midline or mass noted. There is decreased density in the white matter from chronic microvascular changes similar to an old study. Possible old white matter lacunar infarct in the left frontal lobe. There is no acute CVA noted. There is chronic mucosal thickening in the ethmoid sinuses. Impression: 1. No hemorrhage or acute CVA noted.
--- NOTE | 2017-04-25 13:00 | RAD ---
One or more of the following individualized dose reduction techniques were utilized for this examination: 1. Automated exposure control 2. Adjustment of the mA and/or kV according to patient size 3. Use of iterative reconstruction technique CT chest without contrast. History: COPD, hyponatremia CT of the chest was done without contrast. There is moderate carotid artery calcification at the carotid bifurcations. There is a thyroid nodule on the left towards the lower pole. There are calcified hilar and mediastinal lymph nodes from old granulomatous disease. There is no other mediastinal adenopathy. There is no pleural effusion. There are bilateral breast implants. A definite liver lesion is not identified in the upper liver. There is respiratory motion artifact which limits evaluation. There are changes of chronic obstructive pulmonary disease. There is mild fibrosis. A dominant mass is not identified. A subtle lesion could be obscured by the motion. There are granulomatous in the left lower lobe. There are old right rib fractures. Impression: 1. COPD and mild fibrosis. 2. Limited by motion artifact. 3. No definitive mass identified. 4. Left thyroid nodule.
[2017-04-25 14:51] LABS: CREATININE 0.8 mg/dL (0.6-1.0); GFR 70.3; POTASSIUM 3.8 mmol/L (3.5-5.1)
[2017-04-25] MEDS: AZELASTINE NASAL SPRAY 30ML BOTTLE. NS SCH (21:03)
[2017-04-25] MEDS: NICOTINE 21MG PATCH. TD SCH (21:03)
[2017-04-26] VITALS (8 sets, daily range): BP systolic 138–179; BP diastolic 57–100
[2017-04-26] MEDS: oxyCODONE/APAP 10/325 1 TAB TABLET PO PRN ×5 (02:52→19:46)
[2017-04-26] MEDS: POTASSIUM CL 20MEQ IN 0.9%NACL 1,000 ML IV SCH (05:30)
[2017-04-26] MEDS: ALBUTEROL SULFATE 2.5 MG/3 ML NEBU. NEB SCH ×4 (05:32→20:00)
[2017-04-26 07:17] LABS: BASO % 1 % (0-3); EOS # 0.1 x10^3/uL (0.0-0.7); EOS % 2 % (0-3); HEMATOCRIT 31.9 % (36.0-47.0); HEMOGLOBIN 10.6 g/dL (12.0-15.5); LYMPH # 1.6 x10^3/uL (1.0-4.8); LYMPH % 21 % (24-48); MEAN CORPUSCULAR HEMOGLOBIN 26 pg (25-35); MEAN CORPUSCULAR HGB CONC 33 g/dL (31-37); MEAN CORPUSCULAR VOLUME 79 fL (79-100); MONO # 0.7 x10^3/uL (0.0-1.1); MONO % 9 % (0-9); NEUT # 5.1 x10^3uL (1.8-7.7); NEUT % 68 % (31-73); PLATELET COUNT 273 x10^3/uL (140-400); RED BLOOD COUNT 4.06 x10^6/uL (3.50-5.40); RED CELL DISTRIBUTION WIDTH 17.4 % (11.5-14.5); WHITE BLOOD COUNT 7.5 x10^3/uL (4.0-11.0)
[2017-04-26 07:22] LABS: ALBUMIN/GLOBULIN RATIO 0.9 (1.0-1.7); CALCIUM 8.3 mg/dL (8.5-10.1); CREATININE 0.7 mg/dL (0.6-1.0); POTASSIUM 3.7 mmol/L (3.5-5.1); TOTAL PROTEIN 6.2 g/dL (6.4-8.2)
[2017-04-26] MEDS: PANTOPRAZOLE 40 MG TABLET. PO SCH (07:32)
[2017-04-26 07:44] LABS: TOTAL BILIRUBIN 0.2 mg/dL (0.2-1.0)
[2017-04-26] MEDS: BUDESONIDE 0.5 MG/2 ML NEBU NEB SCH ×2 (08:00→20:00)
[2017-04-26] MEDS: AZELASTINE NASAL SPRAY 30ML BOTTLE. NS SCH ×2 (08:50→20:34)
[2017-04-26] MEDS: FLUTICASONE 50MCG/NASAL SPRAY 16GM BOTTLE. NS SCH ×2 (08:50→20:35)
[2017-04-26] MEDS: LUBIPROSTONE 24 MCG CAPSULE PO SCH ×3 (08:50→20:00)
[2017-04-26] MEDS: TAMSULOSIN 0.4 MG CAP.ER.24H. PO SCH (08:51)
[2017-04-26] MEDS: ROFLUMILAST 500 MCG TABLET PO SCH (08:51)
[2017-04-26] MEDS: LACTOBACILLUS ACIDOPH & BULGAR 1 TABLET. PO SCH (08:51)
[2017-04-26] MEDS: MULTIVITAMIN with MINERAL TABLET. PO SCH (08:52)
[2017-04-26] MEDS: predniSONE 5 MG TABLET PO SCH (08:52)
[2017-04-26] MEDS: clonazePAM 0.5 MG TABLET PO SCH (08:52)
[2017-04-26] MEDS: POTASSIUM BICARB 25 MEQ EFFERVESCENT TAB. PO SCH (08:52)
[2017-04-26] MEDS: ASCORBIC ACID 500 MG TABLET PO SCH (08:53)
[2017-04-26] MEDS: LABETALOL HCL 200 MG TABLET PO SCH ×3 (08:53→19:46)
[2017-04-26] MEDS: NICOTINE 21MG PATCH. TD SCH (08:54)
[2017-04-26 10:18] LABS: FREE T4 1.28 ng/dL (0.76-1.46); THYROID STIM HORMONE (TSH) 0.862 uIU/mL (0.358-3.740)
--- NOTE | 2017-04-26 11:30 | PDOC ---
PROGRESS NOTES Assessment 1. Severe symptomatic hyponatremia: Sodium still 129. Pt is euvolemic. Voiding well. Pt reports a hx of being told by her previous PCP Dr. Mcclure that she should "always take the diuretic no matter what the sodium is because it's the only thing that controls my blood pressure." I doubt, at this point, that her sodium level is causing her mental status changes. I am going to d/c her IVF and monitor her sodium from here. I suspect that she may have SIADH ( especially if she has truly not been on HCTZ since she was at [facility]), but the cause eludes us at this point. Her CT head and CT chest were unremarkable. Her potassium has been corrected. I d/w her daughter that when pt is d/c'd back to [place] they may want to get a BMP every couple days for a while. She also may need a 24 hour urine collection and a f/u appt with the kidney specialist. 2. Hypokalemia: Resolved. 3. COPD: Pt stable, CXR normal, respiratory status stable. Continue home bronchodilators and 5 mg prednisone (as it is unclear how long she has been on this). 4. DVT proph: Heparin BID SQ, pt is at least moderate risk for DVT. Pt has refused at night/. 5. Anemia, etiology unclear: Microcytic, unclear if she has been worked up but Hgb stable. Continue PPI. Check iron studies as outpatient, would also need workup for GI losses if not done recently. 6. Mild-mod PEM: Pt on Ensure BID. 7. Disp: Change pt to med/surg status. 8. Agitation: Pt is having some "sundowning" after 6 pm. Pulled her catheter out last night. I will ask Dr. Savage to evaluate her, may need to consider evaluation and treatment in the [facility] unit if appropriate. I discussed this possibility with her daughter as well. 9. Thyroid nodule: This is an incidental finding on CT of chest and can be further evaluated by PCP as outpatient.if appropriate. 10. HTN: BP poorly controlled. I am going to add amlodipine 5 mg daily, since pt is off Diovan now. Problems: Plan of Care: see other orders Subjective Pt seen on rounds and d/w nursing and her daughter. Pt was very confused and agitated last night. She pulled out her catheter and her IV. There have been no fevers. BP steadily going up. Pt reports that "the diuretic is the only thing that ever worked for me." Denies chest pain, SOA, vomiting, diarrhea, or dizziness. Pt's daughter states "she was confused before, but since being at [place] she has been getting way worse." Objective Vital Signs Date Time Temp Pulse Resp B/P (MAP) Pulse Ox O2 Delivery O2 Flow Rate FiO2 04/26/17 11:13 97.8 04/26/17 10:08 75 21 160/73 (102) 97 Room Air Intake and Output 04/26/17 07:00 Intake Total 25441 ml Output Total 2350 ml Balance 9510 ml Intake Oral 940 ml IV Total 75389 ml Output Urine Total 2350 ml # Bowel Movements 4 Abdomen: Soft, No tenderness, No hepatospenomegaly, No masses Heart: Regular rate, Normal S1, Normal S2, No murmurs Extremities: No edema, Normal pulses, No tenderness/swelling General: Alert, Cooperative, No acute distress HEENT: Atraumatic, PERRLA, EOMI, Mucous membr. moist/pink Lungs: Clear to auscultation, Normal air movement Neck: No JVD, No thyromegaly, No LAD Neuro: Normal speech, Strength at 5/5 X4 ext, Normal tone, Other (No focal abnormalities) Psych/Mental Status: Mental status NL Skin: No rashes Review of Relevant I have reviewed the following items roxie (where applicable) has been applied. Labs Laboratory Tests Test 04/24/17 18:36 04/24/17 19:04 04/25/17 01:25 04/25/17 01:38 Nasal Screen MRSA (PCR) Negative (Negative) White Blood Count 8.0 x10^3/uL (4.0-11.0) Red Blood Count 3.86 x10^6/uL (3.50-5.40) Hemoglobin 10.1 g/dL (12.0-15.5) Hematocrit 29.8 % (36.0-47.0) Mean Corpuscular Volume 77 fL (79-100) Mean Corpuscular Hemoglobin 26 pg (25-35) Mean Corpuscular Hemoglobin Concent 34 g/dL (31-37) Red Cell Distribution Width 17.2 % (11.5-14.5) Platelet Count 260 x10^3/uL (140-400) Neutrophils (%) (Auto) 65 % (31-73) Lymphocytes (%) (Auto) 24 % (24-48) Monocytes (%) (Auto) 9 % (0-9) Eosinophils (%) (Auto) 2 % (0-3) Basophils (%) (Auto) 1 % (0-3) Neutrophils # (Auto) 5.2 x10^3uL (1.8-7.7) Lymphocytes # (Auto) 1.9 x10^3/uL (1.0-4.8) Monocytes # (Auto) 0.7 x10^3/uL (0.0-1.1) Eosinophils # (Auto) 0.2 x10^3/uL (0.0-0.7) Basophils # (Auto) 0.0 x10^3/uL (0.0-0.2) Sodium Level 121 mmol/L (136-145) Potassium Level 3.3 mmol/L (3.5-5.1) Chloride Level 89 mmol/L (98-107) Carbon Dioxide Level 22 mmol/L (21-32) Anion Gap 10 (6-14) Blood Urea Nitrogen 13 mg/dL (7-20) Creatinine 0.9 mg/dL (0.6-1.0) Estimated GFR (Cockcroft-Gault) 61.4 BUN/Creatinine Ratio 14 (6-20) Glucose Level 171 mg/dL (70-99) Calcium Level 8.3 mg/dL (8.5-10.1) Total Bilirubin 0.3 mg/dL (0.2-1.0) Aspartate Amino Transf (AST/SGOT) 16 U/L (15-37) Alanine Aminotransferase (ALT/SGPT) 21 U/L (14-59) Alkaline Phosphatase 70 U/L (46-116) Total Protein 5.8 g/dL (6.4-8.2) Albumin 3.0 g/dL (3.4-5.0) Albumin/Globulin Ratio 1.1 (1.0-1.7) Urine Collection Type Void Urine Color Yellow Urine Clarity Hazy Urine pH 7.0 Urine Specific [place] 1.010 Urine Protein Neg (NEG-TRACE) Urine Glucose (UA) Neg mg/dL (NEG) Urine Ketones (Stick) Neg mg/dL (NEG) Urine Blood Neg (NEG) Urine Nitrite Pos (NEG) Urine Bilirubin Neg (NEG) Urine Urobilinogen Dipstick 0.2 mg/dL (0.2 mg/dL) Urine Leukocyte Esterase Mod (NEG) Urine RBC Occ /HPF (0-2) Urine WBC >40 /HPF (0-4) Urine Squamous Epithelial Cells Occ /LPF Urine Bacteria Many /HPF (0-FEW) Urine Mucus Slight /LPF Glucose (Fingerstick) 75 mg/dL (70-99) Test 04/25/17 01:55 04/25/17 04:05 04/25/17 06:23 04/25/17 07:30 Sodium Level 124 mmol/L (136-145) 127 mmol/L (136-145) 127 mmol/L (136-145) Potassium Level 3.9 mmol/L (3.5-5.1) 3.9 mmol/L (3.5-5.1) 3.4 mmol/L (3.5-5.1) Chloride Level 91 mmol/L (98-107) 93 mmol/L (98-107) 94 mmol/L (98-107) Carbon Dioxide Level 25 mmol/L (21-32) 27 mmol/L (21-32) 27 mmol/L (21-32) Anion Gap 8 (6-14) 7 (6-14) 6 (6-14) Blood Urea Nitrogen 13 mg/dL (7-20) 11 mg/dL (7-20) 10 mg/dL (7-20) Creatinine 0.9 mg/dL (0.6-1.0) 0.8 mg/dL (0.6-1.0) 0.7 mg/dL (0.6-1.0) Estimated GFR (Cockcroft-Gault) 61.4 70.3 82.0 Glucose Level 84 mg/dL (70-99) 86 mg/dL (70-99) 88 mg/dL (70-99) Calcium Level 9.0 mg/dL (8.5-10.1) 8.6 mg/dL (8.5-10.1) 8.6 mg/dL (8.5-10.1) White Blood Count 9.4 x10^3/uL (4.0-11.0) Red Blood Count 4.05 x10^6/uL (3.50-5.40) Hemoglobin 10.5 g/dL (12.0-15.5) Hematocrit 31.5 % (36.0-47.0) Mean Corpuscular Volume 78 fL (79-100) Mean Corpuscular Hemoglobin 26 pg (25-35) Mean Corpuscular Hemoglobin Concent 33 g/dL (31-37) Red Cell Distribution Width 17.1 % (11.5-14.5) Platelet Count 277 x10^3/uL (140-400) Neutrophils (%) (Auto) 63 % (31-73) Lymphocytes (%) (Auto) 24 % (24-48) Monocytes (%) (Auto) 9 % (0-9) Eosinophils (%) (Auto) 2 % (0-3) Basophils (%) (Auto) 1 % (0-3) Neutrophils # (Auto) 6.0 x10^3uL (1.8-7.7) Lymphocytes # (Auto) 2.3 x10^3/uL (1.0-4.8) Monocytes # (Auto) 0.9 x10^3/uL (0.0-1.1) Eosinophils # (Auto) 0.2 x10^3/uL (0.0-0.7) Basophils # (Auto) 0.1 x10^3/uL (0.0-0.2) BUN/Creatinine Ratio 14 (6-20) Total Bilirubin 0.4 mg/dL (0.2-1.0) Aspartate Amino Transf (AST/SGOT) 16 U/L (15-37) Alanine Aminotransferase (ALT/SGPT) 21 U/L (14-59) Alkaline Phosphatase 68 U/L (46-116) Total Protein 6.1 g/dL (6.4-8.2) Albumin 3.1 g/dL (3.4-5.0) Albumin/Globulin Ratio 1.0 (1.0-1.7) Glucose (Fingerstick) 77 mg/dL (70-99) Test 04/25/17 08:50 04/25/17 11:15 04/25/17 14:30 04/25/17 16:42 Sodium Level 128 mmol/L (136-145) 127 mmol/L (136-145) 130 mmol/L (136-145) Potassium Level 4.0 mmol/L (3.5-5.1) 4.0 mmol/L (3.5-5.1) 3.8 mmol/L (3.5-5.1) Chloride Level 97 mmol/L (98-107) 95 mmol/L (98-107) 99 mmol/L (98-107) Carbon Dioxide Level 25 mmol/L (21-32) 24 mmol/L (21-32) 23 mmol/L (21-32) Anion Gap 6 (6-14) 8 (6-14) 8 (6-14) Blood Urea Nitrogen 9 mg/dL (7-20) 9 mg/dL (7-20) 10 mg/dL (7-20) Creatinine 0.7 mg/dL (0.6-1.0) 0.7 mg/dL (0.6-1.0) 0.8 mg/dL (0.6-1.0) Estimated GFR (Cockcroft-Gault) 82.0 82.0 70.3 Glucose Level 94 mg/dL (70-99) 108 mg/dL (70-99) 130 mg/dL (70-99) Calcium Level 8.2 mg/dL (8.5-10.1) 8.8 mg/dL (8.5-10.1) 8.0 mg/dL (8.5-10.1) Thyroid Stimulating Hormone (TSH) 0.862 uIU/mL (0.358-3.740) Free Thyroxine 1.28 ng/dL (0.76-1.46) Glucose (Fingerstick) 82 mg/dL (70-99) Test 04/25/17 20:45 04/26/17 06:54 04/26/17 07:24 Glucose (Fingerstick) 120 mg/dL (70-99) 102 mg/dL (70-99) White Blood Count 7.5 x10^3/uL (4.0-11.0) Red Blood Count 4.06 x10^6/uL (3.50-5.40) Hemoglobin 10.6 g/dL (12.0-15.5) Hematocrit 31.9 % (36.0-47.0) Mean Corpuscular Volume 79 fL (79-100) Mean Corpuscular Hemoglobin 26 pg (25-35) Mean Corpuscular Hemoglobin Concent 33 g/dL (31-37) Red Cell Distribution Width 17.4 % (11.5-14.5) Platelet Count 273 x10^3/uL (140-400) Neutrophils (%) (Auto) 68 % (31-73) Lymphocytes (%) (Auto) 21 % (24-48) Monocytes (%) (Auto) 9 % (0-9) Eosinophils (%) (Auto) 2 % (0-3) Basophils (%) (Auto) 1 % (0-3) Neutrophils # (Auto) 5.1 x10^3uL (1.8-7.7) Lymphocytes # (Auto) 1.6 x10^3/uL (1.0-4.8) Monocytes # (Auto) 0.7 x10^3/uL (0.0-1.1) Eosinophils # (Auto) 0.1 x10^3/uL (0.0-0.7) Basophils # (Auto) 0.0 x10^3/uL (0.0-0.2) Sodium Level 129 mmol/L (136-145) Potassium Level 3.7 mmol/L (3.5-5.1) Chloride Level 101 mmol/L (98-107) Carbon Dioxide Level 21 mmol/L (21-32) Anion Gap 7 (6-14) Blood Urea Nitrogen 11 mg/dL (7-20) Creatinine 0.7 mg/dL (0.6-1.0) Estimated GFR (Cockcroft-Gault) 82.0 BUN/Creatinine Ratio 16 (6-20) Glucose Level 98 mg/dL (70-99) Calcium Level 8.3 mg/dL (8.5-10.1) Total Bilirubin 0.2 mg/dL (0.2-1.0) Aspartate Amino Transf (AST/SGOT) 15 U/L (15-37) Alanine Aminotransferase (ALT/SGPT) 22 U/L (14-59) Alkaline Phosphatase 70 U/L (46-116) Total Protein 6.2 g/dL (6.4-8.2) Albumin 3.0 g/dL (3.4-5.0) Albumin/Globulin Ratio 0.9 (1.0-1.7) Medications Current Medications Oxycodone/ Acetaminophen (Percocet 10/325) 1 tab PRN Q6HRS PRN PO PAIN Last administered on 04/26/17 07:33; Start 04/24/17 at 17:00 Sodium Chloride 1,000 ml @ 75 mls/hr [id number] IV Last administered on 20:44; Start 04/24/17 at 19:45; Stop 04/25/17 at 12:52; Status DC Sodium Chloride (Normal Saline Flush) 3 ml PRN DAILY PRN IV AFTER MEDS AND BLOOD DRAWS; Start 04/24/17 at 23:30 Acetaminophen (Tylenol) 650 mg PRN Q6HRS PRN PO Headaches, Temp > 101.5F; Start 04/24/17 at 23:30 Magnesium Hydroxide (Milk Of Magnesia) 2,400 mg PRN Q12HR PRN PO CONSTIPATION; Start 04/24/17 at 23:30 Calcium Carbonate/ Glycine (Tums) 500 mg PRN Q3HRS PRN PO HEARTBURN / GAS; Start 04/24/17 at 23:30 Info 1 ea CONT PRN PRN MC SEE COMMENTS; Start 04/24/17 at 23:30 Heparin Sodium (Porcine) 5,000 unit Q12H SQ Last administered on 04/25/17 12: 29; Start 04/24/17 at 23:45 Sodium Chloride 500 ml @ 50 mls/hr ONCE ONCE IV Last administered on 01:09; Start 04/24/17 at 23:45; Stop 04/25/17 at 09:44; Status DC Albuterol Sulfate (Ventolin) 2.5 mg PRN Q2HR PRN NEB SHORTNESS OF BREATH; Start 04/24/17 at 23:30; Stop 04/25/17 at 01:51; Status DC Budesonide (Pulmicort) 0.5 mg BID IH ; Start 04/25/17 at 09:00; Stop 04/25/17 at 09:00; Status DC Guaifenesin (Mucinex Er) 600 mg BID PO Last administered on 04/26/17 08:52; Start 04/25/17 at 09:00 Labetalol HCl (Trandate) 200 mg TID PO Last administered on 04/26/17 08:53; Start 04/25/17 at 09:00 Lubiprostone (Amitiza) 24 mcg BID PO Last administered on 04/26/17 08:50; Start 04/25/17 at 09:00 Potassium Bicarbonate (Klyte/Cl) 25 meq DAILY PO Last administered on 08:52; Start 04/25/17 at 09:00 Prednisone (Prednisone) 5 mg DAILY PO Last administered on 04/26/17 08:52; Start 04/25/17 at 09:00 Tamsulosin HCl (Flomax) 0.4 mg DAILY PO Last administered on 04/26/17 08:51; Start 04/25/17 at 09:00 Non-Formulary Medication 25 mg BID PO ; Start 04/25/17 at 09:00; Stop 04/25/17 at 09:00; Status DC Ascorbic Acid (Vitamin C) 1,000 mg DAILY PO Last administered on 04/26/17 08: 53; Start 04/25/17 at 09:00 Azelastine HCl (Astelin) 2 spray BID NS ; Start 04/25/17 at 09:00; Stop at 09:00; Status DC Clonazepam (KlonoPIN) 0.5 mg DAILY PO Last administered on 04/26/17 08:52; Start 04/25/17 at 09:00 Non-Formulary Medication 1 each BID IH ; Start 04/25/17 at 09:00; Status UNV Multivitamins/ Calcium (Thera-M Plus) 1 tab DAILY PO Last administered on 08:52; Start 04/25/17 at 09:00 Non-Formulary Medication 4 gm QID PRN IH SHORTNESS OF BREATH; Start 04/24/17 at 23:30; Status UNV Lactobacillus Acidophilus (Bacid, Beth-Bid) 1 tab DAILY PO Last administered on 04/26/17 08:51; Start 04/25/17 at 09:00 Pantoprazole Sodium (Protonix) 40 mg DAILYAC PO Last administered on 04/26/17 07:32; Start 04/25/17 at 07:30 Lorazepam (Ativan) 0.5 mg PRN Q8HRS PRN IV ANXIETY / AGITATION Last administered on 04/25/17 00:27; Start 04/25/17 at 00:00; Status Future Hold Lorazepam (Ativan) 0.5 mg PRN Q8HRS PRN PO ANXIETY / AGITATION; Start 04/25/17 at 00:00; Status Future Hold Albuterol Sulfate (Ventolin) 2.5 mg PRN QID PRN NEB SHORTNESS OF BREATH; Start 04/25/17 at 00:30 Potassium Chloride/Sodium Chloride 1,000 ml @ 130 mls/hr Q7H42M IV Last administered on 04/26/17 05:30; Start 04/25/17 at 01:45 Albuterol Sulfate (Ventolin) 2.5 mg RTQID NEB Last administered on 04/26/17 05 :32; Start 04/25/17 at 08:00 Budesonide (Pulmicort) 0.5 mg RTBID NEB Last administered on 04/25/17 20:27; Start 04/25/17 at 08:00 Potassium Chloride (Klor-Con) 40 meq 1X ONCE PO Last administered on 07:34; Start 04/25/17 at 07:00; Stop 04/25/17 at 07:01; Status DC Fluticasone Propionate (Flonase) 1 spray BID NS Last administered on 04/26/17 08:50; Start 04/25/17 at 09:00 Azelastine HCl (Astelin) 1 spray BID NS Last administered on 04/25/17 09:40; Start 04/25/17 at 09:00; Stop 04/25/17 at 14:33; Status DC Sodium Chloride (Iv Sodium Chloride 0.9% 500ml) 500 ml STK-MED ONCE .ROUTE ; Start 04/25/17 at 01:00; Stop 04/25/17 at 07:32; Status DC Sodium Chloride (Sodium Chloride) 5 meq STK-MED ONCE IV ; Start 04/25/17 at 01: 00; Stop 04/25/17 at 07:32; Status DC Fosfomycin Tromethamine (Monurol) 3 gm 1X ONCE PO Last administered on 10:18; Start 04/25/17 at 10:00; Stop 04/25/17 at 10:01; Status DC Azelastine HCl (Astelin) 1 spray BID NS Last administered on 04/26/17 08:50; Start 04/25/17 at 14:33 Nicotine (Nicoderm Cq 21mg) 1 patch DAILY TD Last administered on 04/26/17t 08: 54; Start 04/25/17 at 21:00 Active Scripts Active Reported Labetalol Hcl 200 Mg Tablet 200 Mg PO TID Probiotic (Lactobacillus Combo No.10) 1 Each Capsule 1 Each PO DAILY Effer-K 25 Meq Tablet Eff (Potassium Bicarbonate/Cit Ac) 25 Meq Tablet.eff 25 Meq PO DAILY Calcium Carbonate 600 Mg Tablet 1,200 Mg PO DAILY Dymista Nasal Bradford (Azelastine/Fluticasone) 23 Gm Bradford.pump 23 Gm NS BID Aloe Vera 25 Mg Capsule 25 Mg PO BID Tamsulosin Hcl 0.4 Mg Cap.er.24h 0.4 Mg PO DAILY Guaifenesin 600 Mg Tablet.er 600 Mg PO BID Budesonide 0.5 Mg/2 Ml Ampul.neb 0.5 Mg IH BID Albuterol Sulfate Neb Soln (Albuterol Sulfate) 2.5 Mg/3 Ml Vial.neb 2.5 Mg NEB PRN Q2HR PRN Prednisone 5 Mg Tablet 5 Mg PO DAILY Percocet 10-325 Mg Tablet (Oxycodone Hcl/Acetaminophen) 1 Each Tablet 1 Tab PO PRN Q6HRS PRN Oxycodone Hcl 30 Mg Tablet 1 Tab PO BID Combivent Respimat Inhal (Ipratropium/Albuterol Sulfate) 4 Gm Aer.w.adap 4 Gm IH QID PRN Multivitamins (Multivitamin) 1 Each Tablet 1 Tab PO DAILY Glucosamine Chondroitin Cap (Glucosamine/Chondroitin Sulf A) 1 Each Capsule 1 Each PO DAILY Super B Complex (Vitamin B Complex & Vit C No.4) 150 Mg Tablet 150 Mg PO DAILY Green Tea (Green Tea Paradis Extract) 1 Each Capsule 1 Each PO DAILY Vitamin A 8,000 Unit Capsule 8,000 Unit PO DAILY Vitamin C (Ascorbic Acid) 1,000 Mg Tab.chew 1,000 Mg PO DAILY Vitamin E 400 Unit Capsule 400 Unit PO DAILY Vitamin D (Cholecalciferol (Vitamin D3)) 1,000 Unit Tablet 1,000 Unit PO DAILY Centrum Multivitamin Tab Chew (Folic Acid/Mv,Fe,Other Min) 1 Each Tab.chew 1 Each PO DAILY Daliresp (Roflumilast) 500 Mcg Tablet 500 Mcg PO DAILY Amitiza (Lubiprostone) 24 Mcg Capsule 24 Mcg PO BID Zyrtec (Cetirizine Hcl) 10 Mg Tablet 10 Mg PO DAILY Cyclobenzaprine Hcl 10 Mg Tablet 10 Mg PO DAILY Spiriva (Tiotropium Bucklin) 18 Mcg Cap.w.dev 18 Mcg IH DAILY Advair 500-50 Diskus (Fluticasone/Salmeterol) 1 Each Disk.w.dev 1 Each IH BID Clonazepam Odt (Clonazepam) 0.5 Mg Tab.rapdis 0.5 Mg PO DAILY Celebrex (Celecoxib) 200 Mg Capsule 200 Mg PO BID Evista (Raloxifene Hcl) 60 Mg Tablet 60 Mg PO DAILY Omeprazole 40 Mg Capsule.dr 40 Mg PO DAILY Vitals/I & O Vital Sign - Last 24 Hours 04/25/17 04/25/17 04/25/17 04/25/17 12:00 12:40 13:55 14:06 Temp 96.9 Pulse 70 70 Resp 20 15 B/P (MAP) 118/50 (72) 116/47 (70) Pulse Ox 99 O2 Delivery Room Air Room Air 04/25/17 04/25/17 04/25/17 04/25/17 14:28 15:16 15:30 16:00 Temp 97.5 Pulse 75 74 Resp 22 B/P (MAP) 116/47 119/56 (77) O2 Delivery Room Air Room Air 04/25/17 04/25/17 04/25/17 04/25/17 18:01 20:00 20:22 20:25 Temp 97.6 97.5 Pulse 72 75 Resp 22 18 B/P (MAP) 136/57 (83) 113/51 (71) Pulse Ox 95 100 O2 Delivery Room Air Room Air Room Air Room Air 04/25/17 04/25/17 04/25/17 04/25/17 21:02 22:10 23:09 23:49 Pulse 75 71 74 68 Resp 15 B/P (MAP) 113/51 158/77 (104) Pulse Ox 100 O2 Delivery Room Air 04/26/17 04/26/17 04/26/17 04/26/17 00:01 00:36 01:47 03:00 Pulse 70 69 75 Resp 15 17 20 B/P (MAP) 179/74 (109) Pulse Ox 96 O2 Delivery Room Air Room Air Room Air Room Air 04/26/17 04/26/17 04/26/17 04/26/17 03:51 04:00 04:26 05:35 Temp 97.7 Pulse 74 Resp 16 B/P (MAP) O2 Delivery Room Air Room Air Room Air 04/26/17 04/26/17 04/26/17 04/26/17 06:06 07:12 08:00 08:53 Pulse 87 86 78 Resp 20 20 B/P (MAP) 178/79 (112) 163/67 (99) 163/67 Pulse Ox 98 98 O2 Delivery Room Air Room Air Room Air 04/26/17 04/26/17 10:08 11:13 Temp 97.8 Pulse 75 Resp 21 B/P (MAP) 160/73 (102) Pulse Ox 97 O2 Delivery Room Air Intake and Output 04/25/17 04/25/17 04/26/17 15:00 23:00 07:00 Intake Total 180 ml 1450 ml 00101 ml Output Total 550 ml 1800 ml Balance 180 ml 900 ml [address] head: CT brain without contrast. History: Weakness, hyponatremia CT scan of brain was done without contrast. There is no intracranial hemorrhage or subdural hematoma. Ventricles are normal in size. There is no shift of the midline or mass noted. There is decreased density in the white matter from chronic microvascular changes similar to an old study. Possible old white matter lacunar infarct in the left frontal lobe. There is no acute CVA noted. There is chronic mucosal thickening in the ethmoid sinuses. Impression: 1. No hemorrhage or acute CVA noted. CT chest: CT chest without contrast. History: COPD, hyponatremia CT of the chest was done without contrast. There is moderate carotid artery calcification at the carotid bifurcations. There is a thyroid nodule on the left towards the lower pole. There are calcified hilar and mediastinal lymph nodes from old granulomatous disease. There is no other mediastinal adenopathy. There is no pleural effusion. There are bilateral breast implants. A definite liver lesion is not identified in the upper liver. There is respiratory motion artifact which limits evaluation. There are changes of chronic obstructive pulmonary disease. There is mild fibrosis. A dominant mass is not identified. A subtle lesion could be obscured by the motion. There are granulomatous in the left lower lobe. There are old right rib fractures. Impression: 1. COPD and mild fibrosis. 2. Limited by motion artifact. 3. No definitive mass identified. 4. Left thyroid nodule. MALACHI RIVERA MD Apr 26, 2017 11:30
[2017-04-26] MEDS: HEPARIN PF for SUB-Q USE 5,000 UNIT/0.5 ML VIAL. SQ SCH ×2 (11:59→21:34)
[2017-04-26] MEDS: amLODIPine BESYLATE 5 MG TABLET PO SCH (12:04)
[2017-04-26] MEDS: CALCIUM CARBONATE 500 MG TAB.CHEW PO PRN (16:54)
--- NOTE | 2017-04-26 19:23 | PDOC ---
Exam Paul Demential Exam: Paul Note: ~Patient seen individually. Discussed the patient with Nursing staff reviewed the chart.~Reviewed interim history and current functioning. Reviewed vital signs,~Labs/ Radiology~and current medications noted below. Continue current treatment with the changes noted Psychiatric consultation. Identifying data: Patient is a 71-year-old female seen in ICU bed 3 [facility] for a psychiatric consult requested by Dr. Ramirez/Dr. Hernandez on account of the patient's increased confusion and delirium psychosis agitation worse at night. This is within the context of her hyponatremia and exacerbation of COPD. Reportedly last night patient was climbing out of bed hitting pulled her [place] out received multiple bruises as a consequence of what she was doing. Starting at 6 AM today she was mentally much clearer. Later in the day she had a nap and when she woke up she was again quite incoherent confused agitated for no single report. I met with the patient individually discussed with nursing staff reviewed the chart and met with her . Chief complaint: "I have had no memory problems before all of this. No I do not use any alcohol" History of present illness: Patient resides at home with her and has been fairly oriented and coherent appropriate with no significant memory problems. She developed hyponatremia couple of weeks back was at [facility] stabilized and then for a while was at [facility] rehabilitation had a recurrence of her hyponatremia worsening confusion and admitted to [place]. During the day she is done better other than as noted above. No clear suicidal or homicidal ideation. She denies any symptoms of bipolar disorder but admits to past history of anxiety disorder. She states she has never seen a psychiatrist before. concurs with all of this. Past psychiatric history: Unremarkable other than delirium and cognitive disorder symptoms associated with her electrolyte imbalance. Medical history: Positive for hypertension COPD hyponatremia hypokalemia able to colitis cholelithiasis umbilical hernia drug allergies fentanyl penicillin sulfa levofloxacin Current psychotropics noncontributory Family history positive for bipolar disorder in her sister. Social history: Patient lives at home with her . No alcohol or drug abuse history Mental status examination: Patient was seen in ICU bed 3. She is oriented to herself and situation was aware of the date though she was 1 day off. She was able to do 1 step of serial 7 after multiple tries able to spell world forward and backward with no errors. Attention span short she is somewhat anxious dysphoric at times he has psychotic symptoms suicidal or homicidal ideation. Language function intact intellect average insight good judgment intact to standard questioning. Impression: Cognitive disorder unspecified versus delirium due to general medical condition in partial remission anxiety disorder unspecified Plan: We'll start scheduled Zyprexa 2.5 mg by mouth at bedtime for the next 2 or 3 nights since last night was very difficult for her resulting in multiple bruising pulling out her 40s climbing hitting amongst other things. We will also add Zyprexa when necessary. Hopefully as she is stabilized medically we will not need to use the antipsychotics after the first day or 2. Dr. Hernandez thank you for the opportunity to put spitting up patient's care. We'll follow with you Assessment: Vital Signs: Vital Signs Date Time Temp Pulse Resp B/P (MAP) Pulse Ox O2 Delivery O2 Flow Rate FiO2 04/26/17 17:58 97.9 76 20 167/76 (106) 100 Room Air I&O Intake and Output 04/26/17 07:00 Intake Total 22758 ml Output Total 2350 ml Balance 9510 ml Intake Oral 940 ml IV Total 35329 ml Output Urine Total 2350 ml # Bowel Movements 4 Labs: Laboratory Tests Test 04/25/17 20:45 04/26/17 06:54 04/26/17 07:24 04/26/17 11:23 Glucose (Fingerstick) 120 mg/dL (70-99) H 102 mg/dL (70-99) H 74 mg/dL (70-99) White Blood Count 7.5 x10^3/uL (4.0-11.0) Red Blood Count 4.06 x10^6/uL (3.50-5.40) Hemoglobin 10.6 g/dL (12.0-15.5) L Hematocrit 31.9 % (36.0-47.0) L Mean Corpuscular Volume 79 fL (79-100) Mean Corpuscular Hemoglobin 26 pg (25-35) Mean Corpuscular Hemoglobin Concent 33 g/dL (31-37) Red Cell Distribution Width 17.4 % (11.5-14.5) H Platelet Count 273 x10^3/uL (140-400) Neutrophils (%) (Auto) 68 % (31-73) Lymphocytes (%) (Auto) 21 % (24-48) L Monocytes (%) (Auto) 9 % (0-9) Eosinophils (%) (Auto) 2 % (0-3) Basophils (%) (Auto) 1 % (0-3) Neutrophils # (Auto) 5.1 x10^3uL (1.8-7.7) Lymphocytes # (Auto) 1.6 x10^3/uL (1.0-4.8) Monocytes # (Auto) 0.7 x10^3/uL (0.0-1.1) Eosinophils # (Auto) 0.1 x10^3/uL (0.0-0.7) Basophils # (Auto) 0.0 x10^3/uL (0.0-0.2) Sodium Level 129 mmol/L (136-145) L Potassium Level 3.7 mmol/L (3.5-5.1) Chloride Level 101 mmol/L (98-107) Carbon Dioxide Level 21 mmol/L (21-32) Anion Gap 7 (6-14) Blood Urea Nitrogen 11 mg/dL (7-20) Creatinine 0.7 mg/dL (0.6-1.0) Estimated GFR (Cockcroft-Gault) 82.0 BUN/Creatinine Ratio 16 (6-20) Glucose Level 98 mg/dL (70-99) Calcium Level 8.3 mg/dL (8.5-10.1) L Total Bilirubin 0.2 mg/dL (0.2-1.0) Aspartate Amino Transferase (AST) 15 U/L (15-37) Alanine Aminotransferase (ALT) 22 U/L (14-59) Alkaline Phosphatase 70 U/L (46-116) Total Protein 6.2 g/dL (6.4-8.2) L Albumin 3.0 g/dL (3.4-5.0) L Albumin/Globulin Ratio 0.9 (1.0-1.7) L Current Medications: Meds: Current Medications Oxycodone/ Acetaminophen (Percocet 10/325) 1 tab PRN Q6HRS PRN PO PAIN Last administered on 04/26/17t 07:33; Start 04/24/17 at 17:00; Stop 04/26/17 at 11:38 ; Status DC Sodium Chloride 1,000 ml @ 75 mls/hr [id number] IV Last administered on 20:44; Start 04/24/17 at 19:45; Stop 04/25/17 at 12:52; Status DC Sodium Chloride (Normal Saline Flush) 3 ml PRN DAILY PRN IV AFTER MEDS AND BLOOD DRAWS; Start 04/24/17 at 23:30 Acetaminophen (Tylenol) 650 mg PRN Q6HRS PRN PO Headaches, Temp > 101.5F; Start 04/24/17 at 23:30 Magnesium Hydroxide (Milk Of Magnesia) 2,400 mg PRN Q12HR PRN PO CONSTIPATION; Start 04/24/17 at 23:30 Calcium Carbonate/ Glycine (Tums) 500 mg PRN Q3HRS PRN PO HEARTBURN / GAS Last administered on 04/26/17 16:54; Start 04/24/17 at 23:30 Info 1 ea CONT PRN PRN MC SEE COMMENTS; Start 04/24/17 at 23:30 Heparin Sodium (Porcine) 5,000 unit Q12H SQ Last administered on 04/26/17 11: 59; Start 04/24/17 at 23:45 Sodium Chloride 500 ml @ 50 mls/hr ONCE ONCE IV Last administered on 01:09; Start 04/24/17 at 23:45; Stop 04/25/17 at 09:44; Status DC Albuterol Sulfate (Ventolin) 2.5 mg PRN Q2HR PRN NEB SHORTNESS OF BREATH; Start 04/24/17 at 23:30; Stop 04/25/17 at 01:51; Status DC Budesonide (Pulmicort) 0.5 mg BID IH ; Start 04/25/17 at 09:00; Stop 04/25/17 at 09:00; Status DC Guaifenesin (Mucinex Er) 600 mg BID PO Last administered on 04/26/17 08:52; Start 04/25/17 at 09:00 Labetalol HCl (Trandate) 200 mg TID PO Last administered on 04/26/17 14:50; Start 04/25/17 at 09:00 Lubiprostone (Amitiza) 24 mcg BID PO Last administered on 04/26/17 08:50; Start 04/25/17 at 09:00 Potassium Bicarbonate (Klyte/Cl) 25 meq DAILY PO Last administered on 08:52; Start 04/25/17 at 09:00 Prednisone (Prednisone) 5 mg DAILY PO Last administered on 04/26/17 08:52; Start 04/25/17 at 09:00 Tamsulosin HCl (Flomax) 0.4 mg DAILY PO Last administered on 04/26/17 08:51; Start 04/25/17 at 09:00 Non-Formulary Medication 25 mg BID PO ; Start 04/25/17 at 09:00; Stop 04/25/17 at 09:00; Status DC Ascorbic Acid (Vitamin C) 1,000 mg DAILY PO Last administered on 04/26/17 08: 53; Start 04/25/17 at 09:00 Azelastine HCl (Astelin) 2 spray BID NS ; Start 04/25/17 at 09:00; Stop at 09:00; Status DC Clonazepam (KlonoPIN) 0.5 mg DAILY PO Last administered on 04/26/17 08:52; Start 04/25/17 at 09:00 Non-Formulary Medication 1 each BID IH ; Start 04/25/17 at 09:00; Status UNV Multivitamins/ Calcium (Thera-M Plus) 1 tab DAILY PO Last administered on 08:52; Start 04/25/17 at 09:00 Non-Formulary Medication 4 gm QID PRN IH SHORTNESS OF BREATH; Start 04/24/17 at 23:30; Status UNV Lactobacillus Acidophilus (Bacid, Beth-Bid) 1 tab DAILY PO Last administered on 04/26/17 08:51; Start 04/25/17 at 09:00 Pantoprazole Sodium (Protonix) 40 mg DAILYAC PO Last administered on 04/26/17 07:32; Start 04/25/17 at 07:30 Lorazepam (Ativan) 0.5 mg PRN Q8HRS PRN IV ANXIETY / AGITATION Last administered on 04/25/17 00:27; Start 04/25/17 at 00:00; Status Future Hold Lorazepam (Ativan) 0.5 mg PRN Q8HRS PRN PO ANXIETY / AGITATION; Start 04/25/17 at 00:00; Status Future Hold Albuterol Sulfate (Ventolin) 2.5 mg PRN QID PRN NEB SHORTNESS OF BREATH; Start 04/25/17 at 00:30 Potassium Chloride/Sodium Chloride 1,000 ml @ 130 mls/hr Q7H42M IV Last administered on 04/26/17 05:30; Start 04/25/17 at 01:45; Stop 04/26/17 at 11:33 ; Status DC Albuterol Sulfate (Ventolin) 2.5 mg RTQID NEB Last administered on 04/26/17 05 :32; Start 04/25/17 at 08:00 Budesonide (Pulmicort) 0.5 mg RTBID NEB Last administered on 04/25/17 20:27; Start 04/25/17 at 08:00 Potassium Chloride (Klor-Con) 40 meq 1X ONCE PO Last administered on 07:34; Start 04/25/17 at 07:00; Stop 04/25/17 at 07:01; Status DC Fluticasone Propionate (Flonase) 1 spray BID NS Last administered on 04/26/17 08:50; Start 04/25/17 at 09:00 Azelastine HCl (Astelin) 1 spray BID NS Last administered on 04/25/17 09:40; Start 04/25/17 at 09:00; Stop 04/25/17 at 14:33; Status DC Sodium Chloride (Iv Sodium Chloride 0.9% 500ml) 500 ml STK-MED ONCE .ROUTE ; Start 04/25/17 at 01:00; Stop 04/25/17 at 07:32; Status DC Sodium Chloride (Sodium Chloride) 5 meq STK-MED ONCE IV ; Start 04/25/17 at 01: 00; Stop 04/25/17 at 07:32; Status DC Fosfomycin Tromethamine (Monurol) 3 gm 1X ONCE PO Last administered on 10:18; Start 04/25/17 at 10:00; Stop 04/25/17 at 10:01; Status DC Azelastine HCl (Astelin) 1 spray BID NS Last administered on 04/26/17 08:50; Start 04/25/17 at 14:33 Nicotine (Nicoderm Cq 21mg) 1 patch DAILY TD Last administered on 04/26/17 08: 54; Start 04/25/17 at 21:00 Amlodipine Besylate (Norvasc) 5 mg DAILY PO Last administered on 04/26/17 12: 04; Start 04/26/17 at 12:00 Oxycodone/ Acetaminophen (Percocet 10/325) 1 tab PRN Q4HRS PRN PO PAIN Last administered on 04/26/17 16:53; Start 04/26/17 at 12:00 Active Scripts Active Reported Labetalol Hcl 200 Mg Tablet 200 Mg PO TID Probiotic (Lactobacillus Combo No.10) 1 Each Capsule 1 Each PO DAILY Effer-K 25 Meq Tablet Eff (Potassium Bicarbonate/Cit Ac) 25 Meq Tablet.eff 25 Meq PO DAILY Calcium Carbonate 600 Mg Tablet 1,200 Mg PO DAILY Dymista Nasal [place] (Azelastine/Fluticasone) 23 Gm [place].pump 23 Gm NS BID Aloe Vera 25 Mg Capsule 25 Mg PO BID Tamsulosin Hcl 0.4 Mg Cap.er.24h 0.4 Mg PO DAILY Guaifenesin 600 Mg Tablet.er 600 Mg PO BID Budesonide 0.5 Mg/2 Ml Ampul.neb 0.5 Mg IH BID Albuterol Sulfate Neb Soln (Albuterol Sulfate) 2.5 Mg/3 Ml Vial.neb 2.5 Mg NEB PRN Q2HR PRN Prednisone 5 Mg Tablet 5 Mg PO DAILY Percocet 10-325 Mg Tablet (Oxycodone Hcl/Acetaminophen) 1 Each Tablet 1 Tab PO PRN Q6HRS PRN Oxycodone Hcl 30 Mg Tablet 1 Tab PO BID Combivent Respimat Inhal (Ipratropium/Albuterol Sulfate) 4 Gm Aer.w.adap 4 Gm IH QID PRN Multivitamins (Multivitamin) 1 Each Tablet 1 Tab PO DAILY Glucosamine Chondroitin Cap (Glucosamine/Chondroitin Sulf A) 1 Each Capsule 1 Each PO DAILY Super B Complex (Vitamin B Complex & Vit C No.4) 150 Mg Tablet 150 Mg PO DAILY Green Tea (Green Tea [place] Extract) 1 Each Capsule 1 Each PO DAILY Vitamin A 8,000 Unit Capsule 8,000 Unit PO DAILY Vitamin C (Ascorbic Acid) 1,000 Mg Tab.chew 1,000 Mg PO DAILY Vitamin E 400 Unit Capsule 400 Unit PO DAILY Vitamin D (Cholecalciferol (Vitamin D3)) 1,000 Unit Tablet 1,000 Unit PO DAILY Centrum Multivitamin Tab Chew (Folic Acid/Mv,Fe,Other Min) 1 Each Tab.chew 1 Each PO DAILY Daliresp (Roflumilast) 500 Mcg Tablet 500 Mcg PO DAILY Amitiza (Lubiprostone) 24 Mcg Capsule 24 Mcg PO BID Zyrtec (Cetirizine Hcl) 10 Mg Tablet 10 Mg PO DAILY Cyclobenzaprine Hcl 10 Mg Tablet 10 Mg PO DAILY Spiriva (Tiotropium [place]) 18 Mcg Cap.w.dev 18 Mcg IH DAILY Advair 500-50 Diskus (Fluticasone/Salmeterol) 1 Each Disk.w.dev 1 Each IH BID Clonazepam Odt (Clonazepam) 0.5 Mg Tab.rapdis 0.5 Mg PO DAILY Celebrex (Celecoxib) 200 Mg Capsule 200 Mg PO BID Evista (Raloxifene Hcl) 60 Mg Tablet 60 Mg PO DAILY Omeprazole 40 Mg Capsule.dr 40 Mg PO DAILY Diagnosis: Problems: (1) Anxiety disorder (2) Mild cognitive disorder (3) Decompensated COPD with exacerbation (chronic obstructive pulmonary disease) (4) Acute severe asthma (5) Hyponatremia HALINA FRAUSTO MD Apr 26, 2017 19:23
[2017-04-26] MEDS ORDERED: OLANZapine 2.5 MG TABLET PO PRN (19:45)
[2017-04-26] MEDS: OLANZapine 2.5 MG TABLET PO SCH (19:45)
[2017-04-27] MEDS: oxyCODONE/APAP 10/325 1 TAB TABLET PO PRN ×5 (00:28→19:55)
[2017-04-27] MEDS: ALBUTEROL SULFATE 2.5 MG/3 ML NEBU. NEB SCH ×3 (05:50→19:52)
[2017-04-27 07:15] VITALS: BP 184/81
[2017-04-27 07:35] LABS: BASO # 0.1 x10^3/uL (0.0-0.2); BASO % 1 % (0-3); EOS # 0.2 x10^3/uL (0.0-0.7); EOS % 2 % (0-3); HEMATOCRIT 30.6 % (36.0-47.0); HEMOGLOBIN 10.3 g/dL (12.0-15.5); LYMPH # 2.4 x10^3/uL (1.0-4.8); LYMPH % 35 % (24-48); MEAN CORPUSCULAR HEMOGLOBIN 26 pg (25-35); MEAN CORPUSCULAR HGB CONC 34 g/dL (31-37); MEAN CORPUSCULAR VOLUME 78 fL (79-100); MONO # 0.6 x10^3/uL (0.0-1.1); MONO % 9 % (0-9); NEUT # 3.6 x10^3uL (1.8-7.7); NEUT % 52 % (31-73); PLATELET COUNT 254 x10^3/uL (140-400); RED BLOOD COUNT 3.93 x10^6/uL (3.50-5.40); RED CELL DISTRIBUTION WIDTH 17.5 % (11.5-14.5); WHITE BLOOD COUNT 6.8 x10^3/uL (4.0-11.0)
[2017-04-27 08:04] LABS: CALCIUM 8.7 mg/dL (8.5-10.1); CREATININE 0.8 mg/dL (0.6-1.0); GFR 70.3; POTASSIUM 3.9 mmol/L (3.5-5.1)
[2017-04-27] MEDS: FLUTICASONE 50MCG/NASAL SPRAY 16GM BOTTLE. NS SCH ×2 (08:39→21:00)
[2017-04-27] MEDS: PANTOPRAZOLE 40 MG TABLET. PO SCH (08:40)
[2017-04-27] MEDS: TAMSULOSIN 0.4 MG CAP.ER.24H. PO SCH (08:40)
[2017-04-27] MEDS: AZELASTINE NASAL SPRAY 30ML BOTTLE. NS SCH ×2 (08:40→21:00)
[2017-04-27] MEDS: amLODIPine BESYLATE 5 MG TABLET PO SCH (08:40)
[2017-04-27] MEDS: ASCORBIC ACID 500 MG TABLET PO SCH (08:40)
[2017-04-27] MEDS: MULTIVITAMIN with MINERAL TABLET. PO SCH (08:40)
[2017-04-27] MEDS: predniSONE 5 MG TABLET PO SCH (08:41)
[2017-04-27] MEDS: LACTOBACILLUS ACIDOPH & BULGAR 1 TABLET. PO SCH (08:41)
[2017-04-27] MEDS: LABETALOL HCL 200 MG TABLET PO SCH ×2 (08:41→21:22)
[2017-04-27] MEDS: POTASSIUM BICARB 25 MEQ EFFERVESCENT TAB. PO SCH (08:41)
[2017-04-27] MEDS: clonazePAM 0.5 MG TABLET PO SCH (08:41)
[2017-04-27] MEDS: LUBIPROSTONE 24 MCG CAPSULE PO SCH ×2 (08:41→21:20)
[2017-04-27] MEDS: ROFLUMILAST 500 MCG TABLET PO SCH (08:41)
[2017-04-27] MEDS: NICOTINE 21MG PATCH. TD SCH (08:41)
[2017-04-27 08:43] LABS: ALBUMIN 3.1 g/dL (3.4-5.0); CALCIUM 8.6 mg/dL (8.5-10.1); CREATININE 0.8 mg/dL (0.6-1.0); GFR 70.3; POTASSIUM 3.6 mmol/L (3.5-5.1); TOTAL BILIRUBIN 0.3 mg/dL (0.2-1.0); TOTAL PROTEIN 6.2 g/dL (6.4-8.2)
[2017-04-27] MEDS: HEPARIN PF for SUB-Q USE 5,000 UNIT/0.5 ML VIAL. SQ SCH (11:21)
[2017-04-27] MEDS: BUDESONIDE 0.5 MG/2 ML NEBU NEB SCH ×2 (11:27→19:52)
[2017-04-27] MEDS ORDERED: amLODIPine BESYLATE 5 MG TABLET PO ONE (13:45)
--- NOTE | 2017-04-27 13:55 | PDOC ---
SUBJECTIVE: More awake alert she continues to have episodes of confusion and sun downing Delirium vs dementia She was started on zyprexa and she slept well last She isb retaining urine and has had a peguero catheter placed OBJECTIVE: Problems: Hyponatremia likely due to SIADH So far her TSH and T4 are normal she is not on any SSRI She is not on any diuretics She is a smoker but documentation of any bronchogenic malignancy The patient is setting in her bed comfortably in NAD She is confused at times her blood pressure is not optimally controlled She has retained urine over the weekend and a Peguero catheter was placed and has pulled it once Vital Signs: Vital Signs Date Time Temp Pulse Resp B/P (MAP) Pulse Ox O2 Delivery O2 Flow Rate FiO2 04/27/17 11:27 Room Air 04/27/17 08:41 89 184/81 04/27/17 07:15 97.5 20 99 I & O Intake and Output 04/27/17 07:00 Intake Total 1834 ml Output Total 3425 ml Balance -1591 ml Intake Oral 1040 ml IV Total 794 ml Output Urine Total 3425 ml Labs: Laboratory Tests Test 04/25/17 14:30 04/25/17 16:42 04/25/17 20:45 04/26/17 06:54 Sodium Level 130 mmol/L (136-145) 129 mmol/L (136-145) Potassium Level 3.8 mmol/L (3.5-5.1) 3.7 mmol/L (3.5-5.1) Chloride Level 99 mmol/L (98-107) 101 mmol/L (98-107) Carbon Dioxide Level 23 mmol/L (21-32) 21 mmol/L (21-32) Anion Gap 8 (6-14) 7 (6-14) Blood Urea Nitrogen 10 mg/dL (7-20) 11 mg/dL (7-20) Creatinine 0.8 mg/dL (0.6-1.0) 0.7 mg/dL (0.6-1.0) Estimated GFR (Cockcroft-Gault) 70.3 82.0 Glucose Level 130 mg/dL (70-99) 98 mg/dL (70-99) Calcium Level 8.0 mg/dL (8.5-10.1) 8.3 mg/dL (8.5-10.1) Thyroid Stimulating Hormone (TSH) 0.862 uIU/mL (0.358-3.740) Free Thyroxine 1.28 ng/dL (0.76-1.46) Glucose (Fingerstick) 82 mg/dL (70-99) 120 mg/dL (70-99) White Blood Count 7.5 x10^3/uL (4.0-11.0) Red Blood Count 4.06 x10^6/uL (3.50-5.40) Hemoglobin 10.6 g/dL (12.0-15.5) Hematocrit 31.9 % (36.0-47.0) Mean Corpuscular Volume 79 fL (79-100) Mean Corpuscular Hemoglobin 26 pg (25-35) Mean Corpuscular Hemoglobin Concent 33 g/dL (31-37) Red Cell Distribution Width 17.4 % (11.5-14.5) Platelet Count 273 x10^3/uL (140-400) Neutrophils (%) (Auto) 68 % (31-73) Lymphocytes (%) (Auto) 21 % (24-48) Monocytes (%) (Auto) 9 % (0-9) Eosinophils (%) (Auto) 2 % (0-3) Basophils (%) (Auto) 1 % (0-3) Neutrophils # (Auto) 5.1 x10^3uL (1.8-7.7) Lymphocytes # (Auto) 1.6 x10^3/uL (1.0-4.8) Monocytes # (Auto) 0.7 x10^3/uL (0.0-1.1) Eosinophils # (Auto) 0.1 x10^3/uL (0.0-0.7) Basophils # (Auto) 0.0 x10^3/uL (0.0-0.2) BUN/Creatinine Ratio 16 (6-20) Total Bilirubin 0.2 mg/dL (0.2-1.0) Aspartate Amino Transf (AST/SGOT) 15 U/L (15-37) Alanine Aminotransferase (ALT/SGPT) 22 U/L (14-59) Alkaline Phosphatase 70 U/L (46-116) Total Protein 6.2 g/dL (6.4-8.2) Albumin 3.0 g/dL (3.4-5.0) Albumin/Globulin Ratio 0.9 (1.0-1.7) Test 04/26/17 07:24 04/26/17 11:23 04/27/17 07:20 Glucose (Fingerstick) 102 mg/dL (70-99) 74 mg/dL (70-99) White Blood Count 6.8 x10^3/uL (4.0-11.0) Red Blood Count 3.93 x10^6/uL (3.50-5.40) Hemoglobin 10.3 g/dL (12.0-15.5) Hematocrit 30.6 % (36.0-47.0) Mean Corpuscular Volume 78 fL (79-100) Mean Corpuscular Hemoglobin 26 pg (25-35) Mean Corpuscular Hemoglobin Concent 34 g/dL (31-37) Red Cell Distribution Width 17.5 % (11.5-14.5) Platelet Count 254 x10^3/uL (140-400) Neutrophils (%) (Auto) 52 % (31-73) Lymphocytes (%) (Auto) 35 % (24-48) Monocytes (%) (Auto) 9 % (0-9) Eosinophils (%) (Auto) 2 % (0-3) Basophils (%) (Auto) 1 % (0-3) Neutrophils # (Auto) 3.6 x10^3uL (1.8-7.7) Lymphocytes # (Auto) 2.4 x10^3/uL (1.0-4.8) Monocytes # (Auto) 0.6 x10^3/uL (0.0-1.1) Eosinophils # (Auto) 0.2 x10^3/uL (0.0-0.7) Basophils # (Auto) 0.1 x10^3/uL (0.0-0.2) Sodium Level 131 mmol/L (136-145) Potassium Level 3.9 mmol/L (3.5-5.1) Chloride Level 101 mmol/L (98-107) Carbon Dioxide Level 23 mmol/L (21-32) Anion Gap 7 (6-14) Blood Urea Nitrogen 12 mg/dL (7-20) Creatinine 0.8 mg/dL (0.6-1.0) Estimated GFR (Cockcroft-Gault) 70.3 Glucose Level 78 mg/dL (70-99) Calcium Level 8.7 mg/dL (8.5-10.1) Physical Exam: Looked well pale but not jaundiced no JVD No L E Edema BP 172/85 cvs s1+s2 navdeep no shruthi, rub or murmur Chest CTA No creipitaion or rhonchi abdomen soft non tender [employer] confused but otherwise grossly intact ASSESSMENT: Hyponatremia improving BP not yet optimally controlled Urinary retention We will remove the catheter and observe Acute confusional state 2/2 to her hyponatremia and delirium vs cognitive impairment due dementia PLAN: We will adjust her BP medication Remove the catheter for now and scan the bladder Monitor her elctrolytes Check am cortisol Her Norvasc was increased to 10mg daily Labetalol to 400mg po bid DAISY WANG MD Apr 27, 2017 13:55
[2017-04-27] MEDS: CALCIUM CARBONATE 500 MG TAB.CHEW PO PRN (17:33)
[2017-04-27 19:41] VITALS: BP 140/96
[2017-04-27] MEDS: OLANZapine 2.5 MG TABLET PO SCH (21:22)
--- NOTE | 2017-04-27 22:12 | PDOC ---
Exam Paul Demential Exam: Paul Note: Please also refer to the separate dictated note~for this date of service dictated separately.~Patient seen individually. Discussed the patient with Nursing staff reviewed the chart.~Reviewed interim history and current functioning. Reviewed vital signs,~Labs/ Radiology~and current medications noted below. Continue current treatment with the changes noted in the dictated addendum note Assessment: Vital Signs: Vital Signs Date Time Temp Pulse Resp B/P (MAP) Pulse Ox O2 Delivery O2 Flow Rate FiO2 04/27/17 21:22 69 140/96 04/27/17 19:52 Room Air 04/27/17 19:41 98.2 16 94 I&O Intake and Output 04/27/17 07:00 Intake Total 1834 ml Output Total 3425 ml Balance -1591 ml Intake Oral 1040 ml IV Total 794 ml Output Urine Total 3425 ml Labs: Laboratory Tests Test 04/27/17 07:20 White Blood Count 6.8 x10^3/uL (4.0-11.0) Red Blood Count 3.93 x10^6/uL (3.50-5.40) Hemoglobin 10.3 g/dL (12.0-15.5) L Hematocrit 30.6 % (36.0-47.0) L Mean Corpuscular Volume 78 fL (79-100) L Mean Corpuscular Hemoglobin 26 pg (25-35) Mean Corpuscular Hemoglobin Concent 34 g/dL (31-37) Red Cell Distribution Width 17.5 % (11.5-14.5) H Platelet Count 254 x10^3/uL (140-400) Neutrophils (%) (Auto) 52 % (31-73) Lymphocytes (%) (Auto) 35 % (24-48) Monocytes (%) (Auto) 9 % (0-9) Eosinophils (%) (Auto) 2 % (0-3) Basophils (%) (Auto) 1 % (0-3) Neutrophils # (Auto) 3.6 x10^3uL (1.8-7.7) Lymphocytes # (Auto) 2.4 x10^3/uL (1.0-4.8) Monocytes # (Auto) 0.6 x10^3/uL (0.0-1.1) Eosinophils # (Auto) 0.2 x10^3/uL (0.0-0.7) Basophils # (Auto) 0.1 x10^3/uL (0.0-0.2) Sodium Level 131 mmol/L (136-145) L Potassium Level 3.9 mmol/L (3.5-5.1) Chloride Level 101 mmol/L (98-107) Carbon Dioxide Level 23 mmol/L (21-32) Anion Gap 7 (6-14) Blood Urea Nitrogen 12 mg/dL (7-20) Creatinine 0.8 mg/dL (0.6-1.0) Estimated GFR (Cockcroft-Gault) 70.3 Glucose Level 78 mg/dL (70-99) Calcium Level 8.7 mg/dL (8.5-10.1) Current Medications: Meds: Current Medications Oxycodone/ Acetaminophen (Percocet 10/325) 1 tab PRN Q6HRS PRN PO PAIN Last administered on 04/26/17 07:33; Start 04/24/17 at 17:00; Stop 04/26/17 at 11:38 ; Status DC Sodium Chloride 1,000 ml @ 75 mls/hr [id number] IV Last administered on 20:44; Start 04/24/17 at 19:45; Stop 04/25/17 at 12:52; Status DC Sodium Chloride (Normal Saline Flush) 3 ml PRN DAILY PRN IV AFTER MEDS AND BLOOD DRAWS; Start 04/24/17 at 23:30 Acetaminophen (Tylenol) 650 mg PRN Q6HRS PRN PO Headaches, Temp > 101.5F; Start 04/24/17 at 23:30 Magnesium Hydroxide (Milk Of Magnesia) 2,400 mg PRN Q12HR PRN PO CONSTIPATION; Start 04/24/17 at 23:30 Calcium Carbonate/ Glycine (Tums) 500 mg PRN Q3HRS PRN PO HEARTBURN / GAS Last administered on 04/27/17 17:33; Start 04/24/17 at 23:30 Info 1 ea CONT PRN PRN MC SEE COMMENTS; Start 04/24/17 at 23:30 Heparin Sodium (Porcine) 5,000 unit Q12H SQ Last administered on 04/27/17 11: 21; Start 04/24/17 at 23:45 Sodium Chloride 500 ml @ 50 mls/hr ONCE ONCE IV Last administered on 01:09; Start 04/24/17 at 23:45; Stop 04/25/17 at 09:44; Status DC Albuterol Sulfate (Ventolin) 2.5 mg PRN Q2HR PRN NEB SHORTNESS OF BREATH; Start 04/24/17 at 23:30; Stop 04/25/17 at 01:51; Status DC Budesonide (Pulmicort) 0.5 mg BID IH ; Start 04/25/17 at 09:00; Stop 04/25/17 at 09:00; Status DC Guaifenesin (Mucinex Er) 600 mg BID PO Last administered on 04/27/17 21:22; Start 04/25/17 at 09:00 Labetalol HCl (Trandate) 200 mg TID PO Last administered on 04/27/17 08:41; Start 04/25/17 at 09:00; Stop 04/27/17 at 13:40; Status DC Lubiprostone (Amitiza) 24 mcg BID PO Last administered on 04/27/17 21:20; Start 04/25/17 at 09:00 Potassium Bicarbonate (Klyte/Cl) 25 meq DAILY PO Last administered on 08:41; Start 04/25/17 at 09:00 Prednisone (Prednisone) 5 mg DAILY PO Last administered on 04/27/17 08:41; Start 04/25/17 at 09:00 Tamsulosin HCl (Flomax) 0.4 mg DAILY PO Last administered on 04/27/17 08:40; Start 04/25/17 at 09:00 Non-Formulary Medication 25 mg BID PO ; Start 04/25/17 at 09:00; Stop 04/25/17 at 09:00; Status DC Ascorbic Acid (Vitamin C) 1,000 mg DAILY PO Last administered on 04/27/17 08: 40; Start 04/25/17 at 09:00 Azelastine HCl (Astelin) 2 spray BID NS ; Start 04/25/17 at 09:00; Stop at 09:00; Status DC Clonazepam (KlonoPIN) 0.5 mg DAILY PO Last administered on 04/27/17 08:41; Start 04/25/17 at 09:00 Non-Formulary Medication 1 each BID IH ; Start 04/25/17 at 09:00; Status UNV Multivitamins/ Calcium (Thera-M Plus) 1 tab DAILY PO Last administered on 08:40; Start 04/25/17 at 09:00 Non-Formulary Medication 4 gm QID PRN IH SHORTNESS OF BREATH; Start 04/24/17 at 23:30; Status UNV Lactobacillus Acidophilus (Bacid, Beth-Bid) 1 tab DAILY PO Last administered on 04/27/17 08:41; Start 04/25/17 at 09:00 Pantoprazole Sodium (Protonix) 40 mg DAILYAC PO Last administered on 04/27/17 08:40; Start 04/25/17 at 07:30 Lorazepam (Ativan) 0.5 mg PRN Q8HRS PRN IV ANXIETY / AGITATION Last administered on 04/25/17 00:27; Start 04/25/17 at 00:00; Status Future Hold Lorazepam (Ativan) 0.5 mg PRN Q8HRS PRN PO ANXIETY / AGITATION; Start 04/25/17 at 00:00; Status Future Hold Albuterol Sulfate (Ventolin) 2.5 mg PRN QID PRN NEB SHORTNESS OF BREATH; Start 04/25/17 at 00:30 Potassium Chloride/Sodium Chloride 1,000 ml @ 130 mls/hr Q7H42M IV Last administered on 04/26/17 05:30; Start 04/25/17 at 01:45; Stop 04/26/17 at 11:33 ; Status DC Albuterol Sulfate (Ventolin) 2.5 mg RTQID NEB Last administered on 04/27/17 19 :52; Start 04/25/17 at 08:00 Budesonide (Pulmicort) 0.5 mg RTBID NEB Last administered on 04/27/17 19:52; Start 04/25/17 at 08:00 Potassium Chloride (Klor-Con) 40 meq 1X ONCE PO Last administered on 07:34; Start 04/25/17 at 07:00; Stop 04/25/17 at 07:01; Status DC Fluticasone Propionate (Flonase) 1 spray BID NS Last administered on 04/27/17 08:39; Start 04/25/17 at 09:00 Azelastine HCl (Astelin) 1 spray BID NS Last administered on 04/25/17 09:40; Start 04/25/17 at 09:00; Stop 04/25/17 at 14:33; Status DC Sodium Chloride (Iv Sodium Chloride 0.9% 500ml) 500 ml STK-MED ONCE .ROUTE ; Start 04/25/17 at 01:00; Stop 04/25/17 at 07:32; Status DC Sodium Chloride (Sodium Chloride) 5 meq STK-MED ONCE IV ; Start 04/25/17 at 01: 00; Stop 04/25/17 at 07:32; Status DC Fosfomycin Tromethamine (Monurol) 3 gm 1X ONCE PO Last administered on 10:18; Start 04/25/17 at 10:00; Stop 04/25/17 at 10:01; Status DC Azelastine HCl (Astelin) 1 spray BID NS Last administered on 04/27/17 08:40; Start 04/25/17 at 14:33 Nicotine (Nicoderm Cq 21mg) 1 patch DAILY TD Last administered on 04/27/17 08: 41; Start 04/25/17 at 21:00 Amlodipine Besylate (Norvasc) 5 mg DAILY PO Last administered on 04/27/17 08: 40; Start 04/26/17 at 12:00; Stop 04/27/17 at 13:42; Status DC Oxycodone/ Acetaminophen (Percocet 10/325) 1 tab PRN Q4HRS PRN PO PAIN Last administered on 04/27/17 19:55; Start 04/26/17 at 12:00 Olanzapine (ZyPREXA) 2.5 mg QHS PO Last administered on 04/27/17 21:22; Start 04/26/17 at 21:00 Olanzapine (ZyPREXA) 1.25 mg PRN Q2HR PRN PO agitation Last administered on 21:36; Start 04/26/17 at 19:45 Amlodipine Besylate (Norvasc) 5 mg 1X ONCE PO Last administered on 04/27/17 13:52; Start 04/27/17 at 13:45; Stop 04/27/17 at 13:46; Status DC Amlodipine Besylate (Norvasc) 10 mg DAILY PO ; Start 04/28/17 at 09:00 Labetalol HCl (Trandate) 400 mg BID PO Last administered on 04/27/17t 21:22; Start 04/27/17 at 21:00 Active Scripts Active Reported Labetalol Hcl 200 Mg Tablet 200 Mg PO TID Probiotic (Lactobacillus Combo No.10) 1 Each Capsule 1 Each PO DAILY Effer-K 25 Meq Tablet Eff (Potassium Bicarbonate/Cit Ac) 25 Meq Tablet.eff 25 Meq PO DAILY Calcium Carbonate 600 Mg Tablet 1,200 Mg PO DAILY Dymista Nasal [place] (Azelastine/Fluticasone) 23 Gm [place].pump 23 Gm NS BID Aloe Vera 25 Mg Capsule 25 Mg PO BID Tamsulosin Hcl 0.4 Mg Cap.er.24h 0.4 Mg PO DAILY Guaifenesin 600 Mg Tablet.er 600 Mg PO BID Budesonide 0.5 Mg/2 Ml Ampul.neb 0.5 Mg IH BID Albuterol Sulfate Neb Soln (Albuterol Sulfate) 2.5 Mg/3 Ml Vial.neb 2.5 Mg NEB PRN Q2HR PRN Prednisone 5 Mg Tablet 5 Mg PO DAILY Percocet 10-325 Mg Tablet (Oxycodone Hcl/Acetaminophen) 1 Each Tablet 1 Tab PO PRN Q6HRS PRN Oxycodone Hcl 30 Mg Tablet 1 Tab PO BID Combivent Respimat Inhal (Ipratropium/Albuterol Sulfate) 4 Gm Aer.w.adap 4 Gm IH QID PRN Multivitamins (Multivitamin) 1 Each Tablet 1 Tab PO DAILY Glucosamine Chondroitin Cap (Glucosamine/Chondroitin Sulf A) 1 Each Capsule 1 Each PO DAILY Super B Complex (Vitamin B Complex & Vit C No.4) 150 Mg Tablet 150 Mg PO DAILY Green Tea (Green Tea [place] Extract) 1 Each Capsule 1 Each PO DAILY Vitamin A 8,000 Unit Capsule 8,000 Unit PO DAILY Vitamin C (Ascorbic Acid) 1,000 Mg Tab.chew 1,000 Mg PO DAILY Vitamin E 400 Unit Capsule 400 Unit PO DAILY Vitamin D (Cholecalciferol (Vitamin D3)) 1,000 Unit Tablet 1,000 Unit PO DAILY Centrum Multivitamin Tab Chew (Folic Acid/Mv,Fe,Other Min) 1 Each Tab.chew 1 Each PO DAILY Daliresp (Roflumilast) 500 Mcg Tablet 500 Mcg PO DAILY Amitiza (Lubiprostone) 24 Mcg Capsule 24 Mcg PO BID Zyrtec (Cetirizine Hcl) 10 Mg Tablet 10 Mg PO DAILY Cyclobenzaprine Hcl 10 Mg Tablet 10 Mg PO DAILY Spiriva (Tiotropium [place]) 18 Mcg Cap.w.dev 18 Mcg IH DAILY Advair 500-50 Diskus (Fluticasone/Salmeterol) 1 Each Disk.w.dev 1 Each IH BID Clonazepam Odt (Clonazepam) 0.5 Mg Tab.rapdis 0.5 Mg PO DAILY Celebrex (Celecoxib) 200 Mg Capsule 200 Mg PO BID Evista (Raloxifene Hcl) 60 Mg Tablet 60 Mg PO DAILY Omeprazole 40 Mg Capsule.dr 40 Mg PO DAILY Diagnosis: Problems: (1) Mild cognitive disorder (2) Anxiety disorder HALINA FRAUSTO MD Apr 27, 2017 22:12
[2017-04-27 23:14] VITALS: BP 94/47
[2017-04-28] MEDS: oxyCODONE/APAP 10/325 1 TAB TABLET PO PRN ×6 (00:04→23:26)
[2017-04-28] MEDS: HEPARIN PF for SUB-Q USE 5,000 UNIT/0.5 ML VIAL. SQ SCH ×3 (00:06→23:28)
[2017-04-28 05:28] VITALS: BP 158/68
[2017-04-28] MEDS: ALBUTEROL SULFATE 2.5 MG/3 ML NEBU. NEB SCH ×4 (05:30→20:00)
[2017-04-28 06:49] LABS: CALCIUM 8.9 mg/dL (8.5-10.1); CREATININE 0.9 mg/dL (0.6-1.0); GFR 61.4
[2017-04-28] MEDS: BUDESONIDE 0.5 MG/2 ML NEBU NEB SCH ×2 (08:00→20:00)
[2017-04-28] MEDS: clonazePAM 0.5 MG TABLET PO SCH (08:41)
[2017-04-28] MEDS: predniSONE 5 MG TABLET PO SCH (08:42)
[2017-04-28] MEDS: LACTOBACILLUS ACIDOPH & BULGAR 1 TABLET. PO SCH (08:42)
[2017-04-28] MEDS: PANTOPRAZOLE 40 MG TABLET. PO SCH (08:42)
[2017-04-28] MEDS: ASCORBIC ACID 500 MG TABLET PO SCH (08:42)
[2017-04-28] MEDS: LABETALOL HCL 200 MG TABLET PO SCH ×2 (08:43→20:45)
[2017-04-28] MEDS: MULTIVITAMIN with MINERAL TABLET. PO SCH (08:43)
[2017-04-28] MEDS: amLODIPine BESYLATE 10 MG TABLET PO SCH (08:44)
[2017-04-28] MEDS: TAMSULOSIN 0.4 MG CAP.ER.24H. PO SCH (08:44)
[2017-04-28] MEDS: FLUTICASONE 50MCG/NASAL SPRAY 16GM BOTTLE. NS SCH ×2 (08:45→20:44)
[2017-04-28] MEDS: AZELASTINE NASAL SPRAY 30ML BOTTLE. NS SCH ×2 (08:45→20:44)
[2017-04-28] MEDS: NICOTINE 21MG PATCH. TD SCH (08:46)
[2017-04-28] MEDS: POTASSIUM BICARB 25 MEQ EFFERVESCENT TAB. PO SCH (08:46)
[2017-04-28] MEDS: LUBIPROSTONE 24 MCG CAPSULE PO SCH ×2 (08:50→20:45)
[2017-04-28] MEDS: ROFLUMILAST 500 MCG TABLET PO SCH (08:52)
[2017-04-28 10:51] VITALS: BP 112/66
[2017-04-28] MEDS: CALCIUM CARBONATE 500 MG TAB.CHEW PO PRN (12:23)
--- NOTE | 2017-04-28 14:06 | PDOC ---
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0-47.0) Mean Corpuscular Volume 78 fL (79-100) Mean Corpuscular Hemoglobin 26 pg (25-35) Mean Corpuscular Hemoglobin Concent 34 g/dL (31-37) Red Cell Distribution Width 17.5 % (11.5-14.5) Platelet Count 254 x10^3/uL (140-400) Neutrophils (%) (Auto) 52 % (31-73) Lymphocytes (%) (Auto) 35 % (24-48) Monocytes (%) (Auto) 9 % (0-9) Eosinophils (%) (Auto) 2 % (0-3) Basophils (%) (Auto) 1 % (0-3) Neutrophils # (Auto) 3.6 x10^3uL (1.8-7.7) Lymphocytes # (Auto) 2.4 x10^3/uL (1.0-4.8) Monocytes # (Auto) 0.6 x10^3/uL (0.0-1.1) Eosinophils # (Auto) 0.2 x10^3/uL (0.0-0.7) Basophils # (Auto) 0.1 x10^3/uL (0.0-0.2) Sodium Level 131 mmol/L (136-145) 132 mmol/L (136-145) Potassium Level 3.9 mmol/L (3.5-5.1) 4.0 mmol/L (3.5-5.1) Chloride Level 101 mmol/L (98-107) 98 mmol/L (98-107) Carbon Dioxide Level 23 mmol/L (21-32) 25 mmol/L (21-32) Anion Gap 7 (6-14) 9 (6-14) Blood Urea Nitrogen 12 mg/dL (7-20) 13 mg/dL (7-20) Creatinine 0.8 mg/dL (0.6-1.0) 0.9 mg/dL (0.6-1.0) Estimated GFR (Cockcroft-Gault) 70.3 61.4 Glucose Level 78 mg/dL (70-99) 78 mg/dL (70-99) Calcium Level 8.7 mg/dL (8.5-10.1) 8.9 mg/dL (8.5-10.1) Physical Exam: Looked well in NAD PHYSICAL EXAM IS STABLE WITH NO CHANGES She has multiple wounds on both lower extremities covered with dressing ASSESSMENT: Hypontremia improving BP is much better controlled Mental status improved and she is more lucid according to her family urine retention continues to be an issue and we are exploring various option including teaching her self catheterization PLAN: We will continue to monitor her electrolytes continue BP medications Willcheck her PVV DAISY WANG MD Apr 28, 2017 14:06
[2017-04-28 14:41] VITALS: BP 129/68
[2017-04-28] MEDS: FAMOTIDINE 20 MG TABLET PO SCH (14:56)
[2017-04-28 17:47] VITALS: BP 129/71
--- NOTE | 2017-04-28 18:31 | PDOC ---
Exam Paul Demential Exam: Paul Note: Please also refer to the separate dictated note~for this date of service dictated separately.~Patient seen individually. Discussed the patient with Nursing staff reviewed the chart.~Reviewed interim history and current functioning. Reviewed vital signs,~Labs/ Radiology~and current medications noted below. Continue current treatment with the changes noted in the dictated addendum note Assessment: Vital Signs: Vital Signs Date Time Temp Pulse Resp B/P (MAP) Pulse Ox O2 Delivery O2 Flow Rate FiO2 04/28/17 17:47 98.2 79 20 129/71 (90) 99 Room Air I&O Intake and Output 04/28/17 06:59 Intake Total 600 ml Output Total 700 ml Balance -100 ml Intake Oral 600 ml Output Urine Total 700 ml # Voids 8 # Bowel Movements 2 Labs: Laboratory Tests Test 04/28/17 05:50 Sodium Level 132 mmol/L (136-145) L Potassium Level 4.0 mmol/L (3.5-5.1) Chloride Level 98 mmol/L (98-107) Carbon Dioxide Level 25 mmol/L (21-32) Anion Gap 9 (6-14) Blood Urea Nitrogen 13 mg/dL (7-20) Creatinine 0.9 mg/dL (0.6-1.0) Estimated GFR (Cockcroft-Gault) 61.4 Glucose Level 78 mg/dL (70-99) Calcium Level 8.9 mg/dL (8.5-10.1) Current Medications: Meds: Current Medications Oxycodone/ Acetaminophen (Percocet 10/325) 1 tab PRN Q6HRS PRN PO PAIN Last administered on 04/26/17 07:33; Start 04/24/17 at 17:00; Stop 04/26/17 at 11:38 ; Status DC Sodium Chloride 1,000 ml @ 75 mls/hr [id number] IV Last administered on 20:44; Start 04/24/17 at 19:45; Stop 04/25/17 at 12:52; Status DC Sodium Chloride (Normal Saline Flush) 3 ml PRN DAILY PRN IV AFTER MEDS AND BLOOD DRAWS; Start 04/24/17 at 23:30 Acetaminophen (Tylenol) 650 mg PRN Q6HRS PRN PO Headaches, Temp > 101.5F; Start 04/24/17 at 23:30 Magnesium Hydroxide (Milk Of Magnesia) 2,400 mg PRN Q12HR PRN PO CONSTIPATION; Start 04/24/17 at 23:30 Calcium Carbonate/ Glycine (Tums) 500 mg PRN Q3HRS PRN PO HEARTBURN / GAS Last administered on 04/28/17 12:23; Start 04/24/17 at 23:30 Info 1 ea CONT PRN PRN MC SEE COMMENTS; Start 04/24/17 at 23:30 Heparin Sodium (Porcine) 5,000 unit Q12H SQ Last administered on 04/28/17 12: 23; Start 04/24/17 at 23:45 Sodium Chloride 500 ml @ 50 mls/hr ONCE ONCE IV Last administered on 01:09; Start 04/24/17 at 23:45; Stop 04/25/17 at 09:44; Status DC Albuterol Sulfate (Ventolin) 2.5 mg PRN Q2HR PRN NEB SHORTNESS OF BREATH; Start 04/24/17 at 23:30; Stop 04/25/17 at 01:51; Status DC Budesonide (Pulmicort) 0.5 mg BID IH ; Start 04/25/17 at 09:00; Stop 04/25/17 at 09:00; Status DC Guaifenesin (Mucinex Er) 600 mg BID PO Last administered on 04/28/17 08:43; Start 04/25/17 at 09:00 Labetalol HCl (Trandate) 200 mg TID PO Last administered on 04/27/17 08:41; Start 04/25/17 at 09:00; Stop 04/27/17 at 13:40; Status DC Lubiprostone (Amitiza) 24 mcg BID PO Last administered on 04/27/17 21:20; Start 04/25/17 at 09:00 Potassium Bicarbonate (Klyte/Cl) 25 meq DAILY PO Last administered on 08:46; Start 04/25/17 at 09:00 Prednisone (Prednisone) 5 mg DAILY PO Last administered on 04/28/17 08:42; Start 04/25/17 at 09:00 Tamsulosin HCl (Flomax) 0.4 mg DAILY PO Last administered on 04/28/17 08:44; Start 04/25/17 at 09:00 Non-Formulary Medication 25 mg BID PO ; Start 04/25/17 at 09:00; Stop 04/25/17 at 09:00; Status DC Ascorbic Acid (Vitamin C) 1,000 mg DAILY PO Last administered on 04/28/17 08: 42; Start 04/25/17 at 09:00 Azelastine HCl (Astelin) 2 spray BID NS ; Start 04/25/17 at 09:00; Stop at 09:00; Status DC Clonazepam (KlonoPIN) 0.5 mg DAILY PO Last administered on 04/28/17 08:41; Start 04/25/17 at 09:00 Non-Formulary Medication 1 each BID IH ; Start 04/25/17 at 09:00; Status UNV Multivitamins/ Calcium (Thera-M Plus) 1 tab DAILY PO Last administered on 08:43; Start 04/25/17 at 09:00 Non-Formulary Medication 4 gm QID PRN IH SHORTNESS OF BREATH; Start 04/24/17 at 23:30; Status UNV Lactobacillus Acidophilus (Bacid, Beth-Bid) 1 tab DAILY PO Last administered on 04/28/17 08:42; Start 04/25/17 at 09:00 Pantoprazole Sodium (Protonix) 40 mg DAILYAC PO Last administered on 04/28/17 08:42; Start 04/25/17 at 07:30 Lorazepam (Ativan) 0.5 mg PRN Q8HRS PRN IV ANXIETY / AGITATION Last administered on 04/25/17 00:27; Start 04/25/17 at 00:00; Status Future Hold Lorazepam (Ativan) 0.5 mg PRN Q8HRS PRN PO ANXIETY / AGITATION; Start 04/25/17 at 00:00; Status Future Hold Albuterol Sulfate (Ventolin) 2.5 mg PRN QID PRN NEB SHORTNESS OF BREATH; Start 04/25/17 at 00:30 Potassium Chloride/Sodium Chloride 1,000 ml @ 130 mls/hr Q7H42M IV Last administered on 04/26/17 05:30; Start 04/25/17 at 01:45; Stop 04/26/17 at 11:33 ; Status DC Albuterol Sulfate (Ventolin) 2.5 mg RTQID NEB Last administered on 04/28/17 15 :41; Start 04/25/17 at 08:00 Budesonide (Pulmicort) 0.5 mg RTBID NEB Last administered on 04/27/17 19:52; Start 04/25/17 at 08:00 Potassium Chloride (Klor-Con) 40 meq 1X ONCE PO Last administered on 07:34; Start 04/25/17 at 07:00; Stop 04/25/17 at 07:01; Status DC Fluticasone Propionate (Flonase) 1 spray BID NS Last administered on 04/28/17 08:45; Start 04/25/17 at 09:00 Azelastine HCl (Astelin) 1 spray BID NS Last administered on 04/25/17 09:40; Start 04/25/17 at 09:00; Stop 04/25/17 at 14:33; Status DC Sodium Chloride (Iv Sodium Chloride 0.9% 500ml) 500 ml STK-MED ONCE .ROUTE ; Start 04/25/17 at 01:00; Stop 04/25/17 at 07:32; Status DC Sodium Chloride (Sodium Chloride) 5 meq STK-MED ONCE IV ; Start 04/25/17 at 01: 00; Stop 04/25/17 at 07:32; Status DC Fosfomycin Tromethamine (Monurol) 3 gm 1X ONCE PO Last administered on 10:18; Start 04/25/17 at 10:00; Stop 04/25/17 at 10:01; Status DC Azelastine HCl (Astelin) 1 spray BID NS Last administered on 04/28/17 08:45; Start 04/25/17 at 14:33 Nicotine (Nicoderm Cq 21mg) 1 patch DAILY TD Last administered on 04/28/17 08: 46; Start 04/25/17 at 21:00 Amlodipine Besylate (Norvasc) 5 mg DAILY PO Last administered on 04/27/17 08: 40; Start 04/26/17 at 12:00; Stop 04/27/17 at 13:42; Status DC Oxycodone/ Acetaminophen (Percocet 10/325) 1 tab PRN Q4HRS PRN PO PAIN Last administered on 04/28/17 18:07; Start 04/26/17 at 12:00 Olanzapine (ZyPREXA) 2.5 mg QHS PO Last administered on 04/27/17 21:22; Start 04/26/17 at 21:00 Olanzapine (ZyPREXA) 1.25 mg PRN Q2HR PRN PO agitation Last administered on 21:36; Start 04/26/17 at 19:45 Amlodipine Besylate (Norvasc) 5 mg 1X ONCE PO Last administered on 04/27/17 13:52; Start 04/27/17 at 13:45; Stop 04/27/17 at 13:46; Status DC Amlodipine Besylate (Norvasc) 10 mg DAILY PO Last administered on 04/28/17 08: 44; Start 04/28/17 at 09:00 Labetalol HCl (Trandate) 400 mg BID PO Last administered on 04/28/17 08:43; Start 04/27/17 at 21:00 Famotidine (Pepcid) 20 mg DAILY PO Last administered on 04/28/17 14:56; Start 04/28/17 at 15:00 Oxycodone HCl (OxyCONTIN) 30 mg Q12HR PO ; Start 04/28/17 at 21:00 Active Scripts Active Reported Labetalol Hcl 200 Mg Tablet 200 Mg PO TID Probiotic (Lactobacillus Combo No.10) 1 Each Capsule 1 Each PO DAILY Effer-K 25 Meq Tablet Eff (Potassium Bicarbonate/Cit Ac) 25 Meq Tablet.eff 25 Meq PO DAILY Calcium Carbonate 600 Mg Tablet 1,200 Mg PO DAILY Dymista Nasal [place] (Azelastine/Fluticasone) 23 Gm [place].pump 23 Gm NS BID Aloe Vera 25 Mg Capsule 25 Mg PO BID Tamsulosin Hcl 0.4 Mg Cap.er.24h 0.4 Mg PO DAILY Guaifenesin 600 Mg Tablet.er 600 Mg PO BID Budesonide 0.5 Mg/2 Ml Ampul.neb 0.5 Mg IH BID Albuterol Sulfate Neb Soln (Albuterol Sulfate) 2.5 Mg/3 Ml Vial.neb 2.5 Mg NEB PRN Q2HR PRN Prednisone 5 Mg Tablet 5 Mg PO DAILY Percocet 10-325 Mg Tablet (Oxycodone Hcl/Acetaminophen) 1 Each Tablet 1 Tab PO PRN Q6HRS PRN Oxycodone Hcl 30 Mg Tablet 1 Tab PO BID Combivent Respimat Inhal (Ipratropium/Albuterol Sulfate) 4 Gm Aer.w.adap 4 Gm IH QID PRN Multivitamins (Multivitamin) 1 Each Tablet 1 Tab PO DAILY Glucosamine Chondroitin Cap (Glucosamine/Chondroitin Sulf A) 1 Each Capsule 1 Each PO DAILY Super B Complex (Vitamin B Complex & Vit C No.4) 150 Mg Tablet 150 Mg PO DAILY Green Tea (Green Tea [place] Extract) 1 Each Capsule 1 Each PO DAILY Vitamin A 8,000 Unit Capsule 8,000 Unit PO DAILY Vitamin C (Ascorbic Acid) 1,000 Mg Tab.chew 1,000 Mg PO DAILY Vitamin E 400 Unit Capsule 400 Unit PO DAILY Vitamin D (Cholecalciferol (Vitamin D3)) 1,000 Unit Tablet 1,000 Unit PO DAILY Centrum Multivitamin Tab Chew (Folic Acid/Mv,Fe,Other Min) 1 Each Tab.chew 1 Each PO DAILY Daliresp (Roflumilast) 500 Mcg Tablet 500 Mcg PO DAILY Amitiza (Lubiprostone) 24 Mcg Capsule 24 Mcg PO BID Zyrtec (Cetirizine Hcl) 10 Mg Tablet 10 Mg PO DAILY Cyclobenzaprine Hcl 10 Mg Tablet 10 Mg PO DAILY Spiriva (Tiotropium [place]) 18 Mcg Cap.w.dev 18 Mcg IH DAILY Advair 500-50 Diskus (Fluticasone/Salmeterol) 1 Each Disk.w.dev 1 Each IH BID Clonazepam Odt (Clonazepam) 0.5 Mg Tab.rapdis 0.5 Mg PO DAILY Celebrex (Celecoxib) 200 Mg Capsule 200 Mg PO BID Evista (Raloxifene Hcl) 60 Mg Tablet 60 Mg PO DAILY Omeprazole 40 Mg Capsule.dr 40 Mg PO DAILY Diagnosis: Problems: (1) Mild cognitive disorder (2) Anxiety disorder HALINA FRAUSTO MD Apr 28, 2017 18:31
[2017-04-28] MEDS ORDERED: traZODone 50 MG TABLET. PO PRN (19:00)
[2017-04-28] MEDS: oxyCODONE ER 15 MG TAB.ER.12H PO SCH (20:46)
[2017-04-29] MEDS: oxyCODONE/APAP 10/325 1 TAB TABLET PO PRN ×3 (04:30→12:17)
[2017-04-29] MEDS: ALBUTEROL SULFATE 2.5 MG/3 ML NEBU. NEB SCH ×2 (05:40→09:23)
[2017-04-29 05:59] VITALS: BP 147/68
[2017-04-29 06:38] LABS: CALCIUM 8.6 mg/dL (8.5-10.1); CREATININE 0.8 mg/dL (0.6-1.0); GFR 70.3; MAGNESIUM 1.9 mg/dL (1.8-2.4)
[2017-04-29] MEDS: predniSONE 5 MG TABLET PO SCH (08:10)
[2017-04-29] MEDS: LABETALOL HCL 200 MG TABLET PO SCH (08:10)
[2017-04-29] MEDS: amLODIPine BESYLATE 10 MG TABLET PO SCH (08:10)
[2017-04-29] MEDS: NICOTINE 21MG PATCH. TD SCH (08:10)
[2017-04-29] MEDS: clonazePAM 0.5 MG TABLET PO SCH (08:11)
[2017-04-29] MEDS: FAMOTIDINE 20 MG TABLET PO SCH (08:11)
[2017-04-29] MEDS: MULTIVITAMIN with MINERAL TABLET. PO SCH (08:11)
[2017-04-29] MEDS: LACTOBACILLUS ACIDOPH & BULGAR 1 TABLET. PO SCH (08:11)
[2017-04-29] MEDS: oxyCODONE ER 15 MG TAB.ER.12H PO SCH (08:11)
[2017-04-29] MEDS: ASCORBIC ACID 500 MG TABLET PO SCH (08:11)
[2017-04-29] MEDS: TAMSULOSIN 0.4 MG CAP.ER.24H. PO SCH (08:11)
[2017-04-29] MEDS: FLUTICASONE 50MCG/NASAL SPRAY 16GM BOTTLE. NS SCH (08:12)
[2017-04-29] MEDS: PANTOPRAZOLE 40 MG TABLET. PO SCH (08:12)
[2017-04-29] MEDS: AZELASTINE NASAL SPRAY 30ML BOTTLE. NS SCH (08:12)
[2017-04-29] MEDS: LUBIPROSTONE 24 MCG CAPSULE PO SCH (08:12)
[2017-04-29] MEDS: ROFLUMILAST 500 MCG TABLET PO SCH (08:13)
[2017-04-29] MEDS: POTASSIUM BICARB 25 MEQ EFFERVESCENT TAB. PO SCH (08:14)
[2017-04-29] MEDS: BUDESONIDE 0.5 MG/2 ML NEBU NEB SCH (09:23)
[2017-04-29] MEDS ORDERED: TIOT18CA IH (10:29)
[2017-04-29] MEDS ORDERED: VALS320T2 PO (10:29)
[2017-04-29] MEDS ORDERED: FLUT1DIS5 IH (10:29)
[2017-04-29] MEDS ORDERED: CETI10TA22 PO (10:29)
[2017-04-29] MEDS ORDERED: MOME17SP NS (10:29)
[2017-04-29 10:49] VITALS: BP 101/58
[2017-04-29] MEDS: HEPARIN PF for SUB-Q USE 5,000 UNIT/0.5 ML VIAL. SQ SCH (11:34)
[2017-04-29] MEDS: CALCIUM CARBONATE 500 MG TAB.CHEW PO PRN (12:17)
--- NOTE | 2017-04-29 14:37 | PDOC3 ---
Discharge Summary Visit Information Date of Admission: Apr 24, 2017 Date of Discharge: Apr 29, 2017 Admitting Diagnosis: hyponatremia, altered mental status Admitting Diagnosis Comments The patient was admitted with altered mental status with sun downing Her sodium was [id number] and has responded to I V Normal saline Her BP was poorly controlled She was also retaining urine Final Diagnosis Metabolic Encephalopathy resolved Hyponatremia resolving her serum Na is 132mEq/dl BP is much better controlled as she is now on Amlodipine 10mg daily as well as Labetalol 400 mg po twice daily Urinary Retention has resolved . We have removed the [place] catheter and checked her post void volume on multiple occasion showing that she is emptying her bladder completely Problems: Brief Hospital Course Allergies Allergies Coded Allergies Type Severity Reaction Last Updated Verified fentanyl Allergy Severe 04/24/17 Yes Penicillins Allergy Intermediate 08/11/14 Yes Sulfa (Sulfonamide Antibiotics) Allergy Intermediate 04/25/17 Yes levofloxacin Allergy Intermediate 08/11/14 Yes Vital Signs Vital Signs Date Time Temp Pulse Resp B/P (MAP) Pulse Ox O2 Delivery O2 Flow Rate FiO2 04/29/17 12:18 95 Room Air 04/29/17 10:49 97.9 69 20 101/58 (72) Lab Results Laboratory Tests Test 04/28/17 05:50 04/29/17 05:45 Sodium Level 132 mmol/L (136-145) 132 mmol/L (136-145) Potassium Level 4.0 mmol/L (3.5-5.1) 4.0 mmol/L (3.5-5.1) Chloride Level 98 mmol/L (98-107) 96 mmol/L (98-107) Carbon Dioxide Level 25 mmol/L (21-32) 25 mmol/L (21-32) Anion Gap 9 (6-14) 11 (6-14) Blood Urea Nitrogen 13 mg/dL (7-20) 13 mg/dL (7-20) Creatinine 0.9 mg/dL (0.6-1.0) 0.8 mg/dL (0.6-1.0) Estimated GFR (Cockcroft-Gault) 61.4 70.3 Glucose Level 78 mg/dL (70-99) 77 mg/dL (70-99) Calcium Level 8.9 mg/dL (8.5-10.1) 8.6 mg/dL (8.5-10.1) Cortisol AM Sample 20.6 ug/dL (6.2-19.4) Prothrombin Time 9.5 SEC (9.4-11.4) Prothromb Time International Ratio 0.9 (0.9-1.1) Magnesium Level 1.9 mg/dL (1.8-2.4) Ammonia < 10 mcmol/L (11-34) Brief Hospital Course Ms. Nye is a 71 old female who presented with altered mental status , hyponatremia, poorly controlled hypertension and urine retention All these issues have resolved She will be discharged Home with home health Her BMP will checked twice a week to make sure the her serum sodium remain with acceptable range above 130 mEq/dl She will be monitored for urine retention and she might need to be thought self catheterization Discharge Information Dischare Medications Current Medications Oxycodone/ Acetaminophen (Percocet 10/325) 1 tab PRN Q6HRS PRN PO PAIN Last administered on 04/26/17 07:33; Start 04/24/17 at 17:00; Stop 04/26/17 at 11:38 ; Status DC Sodium Chloride 1,000 ml @ 75 mls/hr [id number] IV Last administered on 20:44; Start 04/24/17 at 19:45; Stop 04/25/17 at 12:52; Status DC Sodium Chloride (Normal Saline Flush) 3 ml PRN DAILY PRN IV AFTER MEDS AND BLOOD DRAWS; Start 04/24/17 at 23:30 Acetaminophen (Tylenol) 650 mg PRN Q6HRS PRN PO Headaches, Temp > 101.5F; Start 04/24/17 at 23:30 Magnesium Hydroxide (Milk Of Magnesia) 2,400 mg PRN Q12HR PRN PO CONSTIPATION; Start 04/24/17 at 23:30 Calcium Carbonate/ Glycine (Tums) 500 mg PRN Q3HRS PRN PO HEARTBURN / GAS Last administered on 04/29/17 12:17; Start 04/24/17 at 23:30 Info 1 ea CONT PRN PRN MC SEE COMMENTS; Start 04/24/17 at 23:30 Heparin Sodium (Porcine) 5,000 unit Q12H SQ Last administered on 04/29/17 11: 34; Start 04/24/17 at 23:45 Sodium Chloride 500 ml @ 50 mls/hr ONCE ONCE IV Last administered on 01:09; Start 04/24/17 at 23:45; Stop 04/25/17 at 09:44; Status DC Albuterol Sulfate (Ventolin) 2.5 mg PRN Q2HR PRN NEB SHORTNESS OF BREATH; Start 04/24/17 at 23:30; Stop 04/25/17 at 01:51; Status DC Budesonide (Pulmicort) 0.5 mg BID IH ; Start 04/25/17 at 09:00; Stop 04/25/17 at 09:00; Status DC Guaifenesin (Mucinex Er) 600 mg BID PO Last administered on 04/29/17 08:12; Start 04/25/17 at 09:00 Labetalol HCl (Trandate) 200 mg TID PO Last administered on 04/27/17 08:41; Start 04/25/17 at 09:00; Stop 04/27/17 at 13:40; Status DC Lubiprostone (Amitiza) 24 mcg BID PO Last administered on 04/29/17 08:12; Start 04/25/17 at 09:00 Potassium Bicarbonate (Klyte/Cl) 25 meq DAILY PO Last administered on 08:14; Start 04/25/17 at 09:00 Prednisone (Prednisone) 5 mg DAILY PO Last administered on 04/29/17 08:10; Start 04/25/17 at 09:00 Tamsulosin HCl (Flomax) 0.4 mg DAILY PO Last administered on 04/29/17 08:11; Start 04/25/17 at 09:00 Non-Formulary Medication 25 mg BID PO ; Start 04/25/17 at 09:00; Stop 04/25/17 at 09:00; Status DC Ascorbic Acid (Vitamin C) 1,000 mg DAILY PO Last administered on 04/29/17 08: 11; Start 04/25/17 at 09:00 Azelastine HCl (Astelin) 2 spray BID NS ; Start 04/25/17 at 09:00; Stop at 09:00; Status DC Clonazepam (KlonoPIN) 0.5 mg DAILY PO Last administered on 04/29/17 08:11; Start 04/25/17 at 09:00 Non-Formulary Medication 1 each BID IH ; Start 04/25/17 at 09:00; Status UNV Multivitamins/ Calcium (Thera-M Plus) 1 tab DAILY PO Last administered on 08:11; Start 04/25/17 at 09:00 Non-Formulary Medication 4 gm QID PRN IH SHORTNESS OF BREATH; Start 04/24/17 at 23:30; Status UNV Lactobacillus Acidophilus (Bacid, Beth-Bid) 1 tab DAILY PO Last administered on 04/29/17 08:11; Start 04/25/17 at 09:00 Pantoprazole Sodium (Protonix) 40 mg DAILYAC PO Last administered on 04/29/17 08:12; Start 04/25/17 at 07:30 Lorazepam (Ativan) 0.5 mg PRN Q8HRS PRN IV ANXIETY / AGITATION Last administered on 04/25/17 00:27; Start 04/25/17 at 00:00; Status Future Hold Lorazepam (Ativan) 0.5 mg PRN Q8HRS PRN PO ANXIETY / AGITATION; Start 04/25/17 at 00:00; Status Future Hold Albuterol Sulfate (Ventolin) 2.5 mg PRN QID PRN NEB SHORTNESS OF BREATH; Start 04/25/17 at 00:30 Potassium Chloride/Sodium Chloride 1,000 ml @ 130 mls/hr Q7H42M IV Last administered on 04/26/17 05:30; Start 04/25/17 at 01:45; Stop 04/26/17 at 11:33 ; Status DC Albuterol Sulfate (Ventolin) 2.5 mg RTQID NEB Last administered on 04/29/17 09 :23; Start 04/25/17 at 08:00 Budesonide (Pulmicort) 0.5 mg RTBID NEB Last administered on 04/29/17 09:23; Start 04/25/17 at 08:00 Potassium Chloride (Klor-Con) 40 meq 1X ONCE PO Last administered on 07:34; Start 04/25/17 at 07:00; Stop 04/25/17 at 07:01; Status DC Fluticasone Propionate (Flonase) 1 spray BID NS Last administered on 04/29/17 08:12; Start 04/25/17 at 09:00 Azelastine HCl (Astelin) 1 spray BID NS Last administered on 04/25/17 09:40; Start 04/25/17 at 09:00; Stop 04/25/17 at 14:33; Status DC Sodium Chloride (Iv Sodium Chloride 0.9% 500ml) 500 ml STK-MED ONCE .ROUTE ; Start 04/25/17 at 01:00; Stop 04/25/17 at 07:32; Status DC Sodium Chloride (Sodium Chloride) 5 meq STK-MED ONCE IV ; Start 04/25/17 at 01: 00; Stop 04/25/17 at 07:32; Status DC Fosfomycin Tromethamine (Monurol) 3 gm 1X ONCE PO Last administered on 10:18; Start 04/25/17 at 10:00; Stop 04/25/17 at 10:01; Status DC Azelastine HCl (Astelin) 1 spray BID NS Last administered on 04/29/17 08:12; Start 04/25/17 at 14:33 Nicotine (Nicoderm Cq 21mg) 1 patch DAILY TD Last administered on 04/29/17 08: 10; Start 04/25/17 at 21:00 Amlodipine Besylate (Norvasc) 5 mg DAILY PO Last administered on 04/27/17 08: 40; Start 04/26/17 at 12:00; Stop 04/27/17 at 13:42; Status DC Oxycodone/ Acetaminophen (Percocet 10/325) 1 tab PRN Q4HRS PRN PO PAIN Last administered on 04/29/17 12:17; Start 04/26/17 at 12:00 Olanzapine (ZyPREXA) 2.5 mg QHS PO Last administered on 04/27/17 21:22; Start 04/26/17 at 21:00; Stop 04/28/17 at 18:49; Status DC Olanzapine (ZyPREXA) 1.25 mg PRN Q2HR PRN PO agitation Last administered on 21:36; Start 04/26/17 at 19:45 Amlodipine Besylate (Norvasc) 5 mg 1X ONCE PO Last administered on 04/27/17 13:52; Start 04/27/17 at 13:45; Stop 04/27/17 at 13:46; Status DC Amlodipine Besylate (Norvasc) 10 mg DAILY PO Last administered on 04/29/17 08: 10; Start 04/28/17 at 09:00 Labetalol HCl (Trandate) 400 mg BID PO Last administered on 04/29/17 08:10; Start 04/27/17 at 21:00 Famotidine (Pepcid) 20 mg DAILY PO Last administered on 04/29/17 08:11; Start 04/28/17 at 15:00 Oxycodone HCl (OxyCONTIN) 30 mg Q12HR PO Last administered on 04/29/17 08:11; Start 04/28/17 at 21:00 Trazodone HCl (Desyrel) 50 mg PRN QHS PRN PO INSOMNIA, MAY REPEAT IN 1HR Last administered on 04/28/17 20:45; Start 04/28/17 at 19:00 Active Scripts Active Reported Zyrtec (Cetirizine Hcl) 10 Mg Tablet 1 Tab PO DAILY Nasonex (Mometasone Furoate) 17 Gm Monroe.pump 2 Spr NS DAILY Spiriva (Tiotropium Marydel) 18 Mcg Cap.w.dev 1 Cap IH DAILY Advair 500-50 Diskus (Fluticasone/Salmeterol) 1 Each Disk.w.dev 1 Puff IH BID Probiotic (Lactobacillus Combo No.10) 1 Each Capsule 1 Each PO DAILY LAST DOSE GIVEN: DATE: SUNDAY 04/29 TIME: 9AM NEXT DOSE DUE: DATE: MONDAY 04/30 TIME: 9AM Effer-K 25 Meq Tablet Eff (Potassium Bicarbonate/Cit Ac) 25 Meq Tablet.eff 25 Meq PO DAILY LAST DOSE GIVEN: DATE: SUNDAY 04/29 TIME: 9AM NEXT DOSE DUE: DATE: MONDAY 04/30 TIME: 9AM Calcium Carbonate 600 Mg Tablet 1,200 Mg PO DAILY LAST DOSE GIVEN: DATE: SUNDAY 04/29 TIME: 9AM NEXT DOSE DUE: DATE: MONDAY 04/30 TIME: 9AM Dymista Nasal Monroe (Azelastine/Fluticasone) 23 Gm Monroe.pump 23 Gm NS BID Aloe Vera 25 Mg Capsule 25 Mg PO BID LAST DOSE GIVEN: DATE: SUNDAY 04/29 TIME: 9AM NEXT DOSE DUE: DATE: SUNDAY 04/29 TIME: 9PM Tamsulosin Hcl 0.4 Mg Cap.er.24h 0.4 Mg PO DAILY LAST DOSE GIVEN: DATE: SUNDAY 04/29 TIME: 9AM NEXT DOSE DUE: DATE: MONDAY 04/30 TIME: 9AM Guaifenesin 600 Mg Tablet.er 600 Mg PO BID LAST DOSE GIVEN: DATE: SUNDAY 04/29 TIME: 9AM NEXT DOSE DUE: DATE: SUNDAY 04/29 TIME: 9PM Budesonide 0.5 Mg/2 Ml Ampul.neb 0.5 Mg IH BID Albuterol Sulfate Neb Soln (Albuterol Sulfate) 2.5 Mg/3 Ml Vial.neb 2.5 Mg NEB PRN Q2HR PRN EVERY 2HR NEEDED FOR SHORTNESS OF BREATH Prednisone 5 Mg Tablet 5 Mg PO DAILY LAST DOSE GIVEN: DATE: SUNDAY 04/29 TIME: 9AM NEXT DOSE DUE: DATE: MONDAY 04/30 TIME: 9AM Percocet 10-325 Mg Tablet (Oxycodone Hcl/Acetaminophen) 1 Each Tablet 1 Tab PO PRN Q6HRS PRN EVERY 6HR NEEDED FOR PAIN Oxycodone Hcl 30 Mg Tablet 1 Tab PO BID LAST DOSE GIVEN: DATE: SUNDAY 04/29 TIME: 9AM NEXT DOSE DUE: DATE: SUNDAY 04/29 TIME: 9PM Combivent Respimat Inhal (Ipratropium/Albuterol Sulfate) 4 Gm Aer.w.adap 4 Gm IH QID PRN 4X A DAY NEEDED FOR SHORTNESS OF BREATH Multivitamins (Multivitamin) 1 Each Tablet 1 Tab PO DAILY Glucosamine Chondroitin Cap (Glucosamine/Chondroitin Sulf A) 1 Each Capsule 1 Each PO DAILY LAST DOSE GIVEN: DATE: SUNDAY 04/29 TIME: 9AM NEXT DOSE DUE: DATE: MONDAY 04/30 TIME: 9AM Super B Complex (Vitamin B Complex & Vit C No.4) 150 Mg Tablet 150 Mg PO DAILY LAST DOSE GIVEN: DATE: SUNDAY 04/29 TIME: 9AM NEXT DOSE DUE: DATE: MONDAY 04/30 TIME: 9AM Green Tea (Green Tea Phoenix Extract) 1 Each Capsule 1 Each PO DAILY LAST DOSE GIVEN: DATE: SUNDAY 04/29 TIME: 9AM NEXT DOSE DUE: DATE: MONDAY 04/30 TIME: 9AM Vitamin A 8,000 Unit Capsule 8,000 Unit PO DAILY LAST DOSE GIVEN: DATE: SUNDAY 04/29 TIME: 9AM NEXT DOSE DUE: DATE: MONDAY 04/30 TIME: 9AM Vitamin C (Ascorbic Acid) 1,000 Mg Tab.chew 1,000 Mg PO DAILY LAST DOSE GIVEN: DATE: SUNDAY 04/29 TIME: 9AM NEXT DOSE DUE: DATE: MONDAY 04/30 TIME: 9AM Vitamin E 400 Unit Capsule 400 Unit PO DAILY LAST DOSE GIVEN: DATE: SUNDAY 04/29 TIME: 9AM NEXT DOSE DUE: DATE: MONDAY 04/30 TIME: 9AM Vitamin D (Cholecalciferol (Vitamin D3)) 1,000 Unit Tablet 1,000 Unit PO DAILY LAST DOSE GIVEN: DATE: SUNDAY 04/29 TIME: 9AM NEXT DOSE DUE: DATE: MONDAY 04/30 TIME: 9AM Centrum Multivitamin Tab Chew (Folic Acid/Mv,Fe,Other Min) 1 Each Tab.chew 1 Each PO DAILY LAST DOSE GIVEN: DATE: SUNDAY 04/29 TIME: 9AM NEXT DOSE DUE: DATE: MONDAY 04/30 TIME: 9AM Daliresp (Roflumilast) 500 Mcg Tablet 500 Mcg PO DAILY LAST DOSE GIVEN: DATE: SUNDAY 04/29 TIME: 9AM NEXT DOSE DUE: DATE: MONDAY 04/30 TIME: 9AM Amitiza (Lubiprostone) 24 Mcg Capsule 24 Mcg PO BID LAST DOSE GIVEN: DATE: SUNDAY 04/29 TIME: 9AM NEXT DOSE DUE: DATE: SUNDAY 04/29 TIME: 9PM Zyrtec (Cetirizine Hcl) 10 Mg Tablet 10 Mg PO DAILY LAST DOSE GIVEN: DATE: SUNDAY 04/29 TIME: 9AM NEXT DOSE DUE: DATE: MONDAY 04/30 TIME: 9PM Cyclobenzaprine Hcl 10 Mg Tablet 10 Mg PO DAILY LAST DOSE GIVEN: DATE: SUNDAY 04/29 TIME: 9AM NEXT DOSE DUE: DATE: MONDAY 04/30 TIME: 9PM Spiriva (Tiotropium Marydel) 18 Mcg Cap.w.dev 18 Mcg IH DAILY LAST DOSE GIVEN: DATE: SUNDAY 04/29 TIME: 9AM NEXT DOSE DUE: DATE: MONDAY 04/30 TIME: 9AM Advair 500-50 Diskus (Fluticasone/Salmeterol) 1 Each Disk.w.dev 1 Each IH BID LAST DOSE GIVEN: DATE: SUNDAY 04/29 TIME: 9AM NEXT DOSE DUE: DATE: SUNDAY 04/29 TIME: 9PM Clonazepam Odt (Clonazepam) 0.5 Mg Tab.rapdis 0.5 Mg PO DAILY LAST DOSE GIVEN: DATE: SUNDAY 04/29 TIME: 9AM NEXT DOSE DUE: DATE: MONDAY 04/30 TIME: 9PM Celebrex (Celecoxib) 200 Mg Capsule 200 Mg PO BID LAST DOSE GIVEN: DATE: SUNDAY 04/29 TIME: 9AM NEXT DOSE DUE: DATE: SUNDAY 04/29 TIME: 9PM Evista (Raloxifene Hcl) 60 Mg Tablet 60 Mg PO DAILY LAST DOSE GIVEN: DATE: SUNDAY 04/29 TIME: 9AM NEXT DOSE DUE: DATE: MONDAY 04/30 TIME: 9PM Omeprazole 40 Mg Capsule.dr 40 Mg PO DAILY LAST DOSE GIVEN: DATE: SUNDAY 04/29 TIME: 9AM NEXT DOSE DUE: DATE: MONDAY 04/30 TIME: 9PM Patient Instructions Patient Instuctions To take her medications as directed F/U with PCP DAISY WANG MD Apr 29, 2017 14:37
--- NOTE | 2017-05-01 01:46 | ACF ---
Admit Criteria Forms Admit Criteria Forms Admit Criteria Forms HYPONATREMIA; HYPERNATREMIA; HYPOKALEMIA; HYPERKALEMIA; HYPOCALCEMIA; HYPERCALCEMIA Clinical Indications for Inpatient Care (Place 'X' for any and all applicable criteria): Ongoing inpatient care may be indicated for ANY ONE of the following [G](1)(2)(3 )(5): [X]I. Hyponatremia with ANY ONE of the following: [X]a) Sodium less than 130 mEq/L (mmol/L) (new) (6)(22) [ ]b) Sodium less than 135 mEq/L (mmol/L) with ANY ONE of the following: [ ]i) Severe medical etiology requiring inpatient management (eg, heart failure, hypovolemia) [ ]ii) Altered mental status [ ]iii) Seizures [ ]II. Hypernatremia with ANY ONE of the following: [ ]a) Sodium greater than 155 mEq/L (mmol/L) [ ]b) Sodium greater than 150 mEq/L (mmol/L) with ANY ONE of the following: [ ] i) Altered mental status [ ]ii) Seizures [ ]iii) Severe medical etiology (eg, hypovolemia, diabetes insipidus) [ ]iv) Severe weakness [ ]v) Severe medical etiology (eg, hemolysis, infection, drug overdose) [ ]III. Hypokalemia with ANY ONE of the following: [ ]a) Potassium less than 2.5 mEq/L (mmol/L) despite outpatient and emergency treatment [ ]b) Potassium less than 3.0 mEq/L (mmol/L) with ANY ONE of the following: [ ]i) Weakness [ ]ii) Cardiac abnormality (eg, arrhythmia, conduction disturbance) [ ]iii) Cardiac ischemia [ ]iv) Ileus [ ]v) Ongoing medical cause requiring inpatient management. ( e.g., acute renal wasting, SIADH) [ ]vi) Other severe symptoms [ ] IV. Hyperkalemia with ANY ONE of the following: [ ]a) Potassium greater than 6.5 mEq/L (mmol/L) [ ]b) Potassium greater than 5 mEq/L (mmol/L) with ANY ONE of the following: [ ]i) Severe ECG findings [H] [ ]ii) Acute worsening of renal failure (creatinine greater than 2.5 mg/dL (221 micromoles/L) or significant elevation for age and size) [ ] V. Hypocalcemia with ANY ONE of the following: [ ]a) Calcium less than 7 mg/dL (1.75 mmol/L) despite outpatient and emergency treatment(19) [ ]b) Calcium less than 8 mg/dL (2 mmol/L) with significant symptoms or findings; examples include: [ ]i) Cardiac abnormality (eg, arrhythmia or conduction disturbance) [ ]ii) Altered mental status [ ]iii) Seizures [ ]iv) Breathing difficulty [ ]v) Muscle spasms [ ]. Hypercalcemia with ANY ONE of the following: [ ]a) Calcium greater than 14 mg/dL (3.5 mmol/L) [ ]b) Calcium greater than 12 mg/dL (3 mmol/L) with ANY ONE of the following: [ ]i) Significant dehydration or hypovolemia as indicated by ANY ONE of the following(2): [ ]1. Clinically significant dehydration as indicated by ANY ONE of the following: [ ]A. Acute loss of weight from baseline (5% of body weight in adults, 9% in pediatric patients) [ ]B. Hemodynamic instability [ ]C. Acute renal failure [ ]D. Serum sodium greater than 150 mEq/L (mmol/L) [ ]2) Dehydration that is persistent indicated by ALL of the following: [ ]A. Oral rehydration therapy not tolerated or insufficient to adequately correct dehydration [ ]B. Appropriate intravenous treatment (eg, fluids ) does not readily correct dehydration ie, after 12 to 24 hours of treatment) [ ]ii) Significant symptoms or findings; examples include: [ ]1) Altered mental status [ ]2) Cardiac abnormality (eg, arrhythmia, conduction disturbance) [ ]3) Cardiac abnormality (eg, arrhythmia, conduction disturbance) The original [employer] content created by [employer] has been revised. The portions of the content which have been revised are identified through the use of italic text or in bold, and [facility] [employer] has neither reviewed nor approved the modified material. All other unmodified content is copyright [facility] Please see references footnoted in the original [facility] edition 2016 ROXY MTZ May 01, 2017 01:46
== END 2017-04-29 14:57 | disposition home health service (06) | DRG 640 ==
LOC: ICU 15:50 → 1 SOUTH 04-27 14:43
PROVIDERS: ADMIT Internal Medicine; ATTEND Internal Medicine
DX: E87.1 Hypo-osmolality and hyponatremia (principal); G93.41 Metabolic encephalopathy; J44.1 Chronic obstructive pulmonary disease with (acute) exacerbation; E44.0 Moderate protein-calorie malnutrition; D64.9 Anemia, unspecified; E87.6 Hypokalemia; F03.90 Unspecified dementia, unspecified severity, without behavioral disturbance, psychotic disturbance, mood disturbance, and anxiety; F09 Unspecified mental disorder due to known physiological condition; F17.200 Nicotine dependence, unspecified, uncomplicated; K57.90 Diverticulosis of intestine, part unspecified, without perforation or abscess without bleeding; R41.0 Disorientation, unspecified; E04.1 Nontoxic single thyroid nodule; R33.9 Retention of urine, unspecified; F41.9 Anxiety disorder, unspecified; I10 Essential (primary) hypertension; Z79.899 Other long term (current) drug therapy; Z81.8 Family history of other mental and behavioral disorders; Z82.49 Family history of ischemic heart disease and other diseases of the circulatory system; Z88.0 Allergy status to penicillin; Z98.82 Breast implant status; Z88.1 Allergy status to other antibiotic agents; Z88.2 Allergy status to sulfonamides; Z88.8 Allergy status to other drugs, medicaments and biological substances; Z68.25 Body mass index [BMI] 25.0-25.9, adult; K42.9 Umbilical hernia without obstruction or gangrene
CPT/HCPCS: 36415; 70450; 71010; 71250; 80048; 80053; 81001; 82140; 82533; 82570; 82947; 83735; 84300; 84439; 84443; 85027; 85610; 87086; 87186; 87641; 94640; J2060; J3490; J7040; J7512; J7613; J7626; 97110; 97530; 97535; J7030

== ENCOUNTER → 2017-07-13 | Outpatient (CLI) | payer MEDICARE, OTHER ==
[~2017-07-13] MED LIST changes: +ALBU2.5V5 NEB; +ALOE25CA PO; +AZEL23SP NS; +BUDE0.5A11 IH; +CALC600T23 PO; +GUAI600T79 PO; +LABE100T3 PO; +LABE200T2 PO; +LACT1CAP29 PO; +OXYC-328 PO; +OXYC30TA PO; +POTA25TA9 PO; +PRED5TAB PO; +TAMS0.4C2 PO; +VALS320T2 PO
--- NOTE | 2017-07-13 16:14 | RAD ---
Ankle-brachial indices, 07/13/2017: History: Nonhealing leg wound Resting AYAH measurements were obtained. The right AYAH is 0.79. The left AYAH 0.76. IMPRESSION: Abnormal resting AYAH measurements of 0.79 on the right and 0.76 on the left.
--- NOTE | 2017-07-13 16:32 | RAD ---
Bilateral lower extremity arterial ultrasound, 07/13/2017: History: Nonhealing wounds Duplex evaluation of the major arteries in both lower extremities was performed including grayscale, color-flow and spectral Doppler analysis. The right common femoral artery demonstrates a biphasic Doppler waveform with a peak systolic velocity 144 cm/s. There are mild scattered plaques in the femoral and popliteal arteries bilaterally. There is a velocity acceleration in the proximal profunda femoris artery on the right up to 268 cm/s suggesting mild stenosis at its origin. No significant velocity elevation is seen in the right superficial femoral or popliteal arteries to suggest high-grade focal stenosis. Patent posterior tibial, peroneal and anterior tibial arteries are present in the right lower leg demonstrating biphasic Doppler waveforms. The right dorsalis pedis artery is patent demonstrating a mildly dampened, monophasic Doppler waveform. On the left, the common femoral artery demonstrates a monophasic Doppler waveform with a peak systolic velocity of 244 cm/s, mildly elevated compared to the right side. There are mild scattered plaques in the femoral and popliteal arteries. There is a velocity acceleration in the distal left superficial femoral artery up to 336 cm/s suggesting moderate stenosis at that level. The left popliteal Doppler waveform is monophasic. Patent posterior tibial and peroneal arteries are present in the left lower leg demonstrating monophasic Doppler waveforms. The left anterior tibial and dorsalis pedis arteries could not be visualized, apparently due to overlying bandages. Mildly decreased resting AYAH measurements of 0.79 on the right and 0.76 on the left are noted. IMPRESSION: 1. Mild scattered femoral-popliteal plaquing bilaterally. 2. Mild stenosis at the origin of the right profunda femoris artery. 3. Mild degradation of the right dorsalis pedis Doppler waveform. 4. Probable mild left common femoral arterial stenosis and moderate stenosis of the left superficial femoral artery in the distal thigh. 5. Incomplete evaluation of the left lower leg and foot arteries due to overlying bandage. 6. Mildly decreased bilateral resting AYAH measurements.
== END | disposition home or self-care (01) ==
LOC: US 14:50
PROVIDERS: ATTEND Emergency Medicine Undersea and Hyperbaric Medicine
DX: I70.203 Unspecified atherosclerosis of native arteries of extremities, bilateral legs (principal); S81.802A Unspecified open wound, left lower leg, initial encounter; S81.801A Unspecified open wound, right lower leg, initial encounter; X58.XXXA Exposure to other specified factors, initial encounter; Y93.89 Activity, other specified; Y92.89 Other specified places as the place of occurrence of the external cause; Y99.8 Other external cause status
CPT/HCPCS: 93922; 93925

== ENCOUNTER 2017-11-09 14:38 | Emergency (ER) | payer MEDICARE, OTHER ==
[~2017-11-09] VITALS: Ht 142.2 cm; Wt 50.3 kg
[2017-11-09 16:09] VITALS: BP 182/88
[2017-11-09] MEDS ORDERED: clonazePAM 1 MG TABLET PO ONE (16:15)
--- NOTE | 2017-11-09 16:16 | PHYS DOC ---
Past History Past Medical History: Anxiety, Asthma, COPD, Hypertension Past Surgical History: No Surgical History Alcohol Use: None Drug Use: None Adult General Chief Complaint Chief Complaint: HYPERTENSION HPI HPI 72-year-old female patient with history of hypertension and anxiety was seen at wound clinic today and had high blood pressure 223/103 and they called her home health nurse and she contacted the primary care physician office that recommended patient coming to ER . Patient states her blood pressure is usually fluctuating with anxiety. Patient denies chest pain and shortness of breath, focal neuro deficit, headache, nausea and vomiting. Patient had blood pressure of 180s at arrival to ER. Review of Systems Review of Systems Constitutional: Denies fever or chills [] Eyes: Denies change in visual acuity, redness, or eye pain [] HENT: Denies nasal congestion or sore throat [] Respiratory: Denies cough or shortness of breath [] Cardiovascular: No additional information not addressed in HPI [] GI: Denies abdominal pain, nausea, vomiting, bloody stools or diarrhea [] : Denies dysuria or hematuria [] Musculoskeletal: Denies back pain or joint pain [] Integument: Denies rash or skin lesions [] Neurologic: Denies headache, focal weakness or sensory changes [] Endocrine: Denies polyuria or polydipsia [] All other systems were reviewed and found to be within normal limits, except as documented in this note. Current Medications Current Medications Current Medications Medications (Trade) Dose Ordered Sig/Branden Start Time Stop Time Status Last Admin Dose Admin Clonazepam (KlonoPIN) 0.5 mg 1X ONCE 11/09/17 16:15 11/09/17 16:16 Allergies Allergies Allergies Coded Allergies Type Severity Reaction Last Updated Verified fentanyl Allergy Severe 04/24/17 Yes Penicillins Allergy Intermediate 08/11/14 Yes Sulfa (Sulfonamide Antibiotics) Allergy Intermediate 04/25/17 Yes levofloxacin Allergy Intermediate 08/11/14 Yes Physical Exam Physical Exam Constitutional: Well developed, well nourished, no acute distress, non-toxic appearance. [] HENT: Normocephalic, atraumatic, bilateral external ears normal, oropharynx moist, no oral exudates, nose normal. [] Eyes: PERRLA, EOMI, conjunctiva normal, no discharge. [] Neck: Normal range of motion, no tenderness, supple, no stridor. [] Cardiovascular:Heart rate regular rhythm, no murmur [] Lungs & Thorax: Bilateral breath sounds clear to auscultation [] Abdomen: Bowel sounds normal, soft, no tenderness, no masses, no pulsatile masses. [] Skin: Warm, dry, no erythema, no rash. [] Back: No tenderness, no CVA tenderness. [] Extremities: No tenderness, no cyanosis, no clubbing, ROM intact, no edema, dressing on left lower extremity Neurologic: Alert and oriented X 3, normal motor function, normal sensory function, no focal deficits noted. [] Psychologic: Affect normal, judgement normal, mood normal. [] Current Patient Data Vital Signs Vital Signs Date Time Temp Pulse Resp B/P (MAP) Pulse Ox O2 Delivery O2 Flow Rate FiO2 11/09/17 15:00 98.1 92 16 96 Room Air EKG EKG [] Radiology/Procedures Radiology/Procedures [] Course & Med Decision Making Course & Med Decision Making The patient in ER showed 72-year-old female patient with history of hypertension had elevation of blood pressure this morning and recommended to come to ER. Patient had blood pressure of 180s in ER and didn't want to have blood tests and wants to go home and take her home medication. Dragon Disclaimer Dragon Disclaimer This electronic medical record was generated, in whole or in part, using a voice recognition dictation system. Departure Departure: Impression: Primary Impression: Uncontrolled hypertension Disposition: 01 HOME, SELF-CARE (At 1614) Condition: IMPROVED Referrals: TYREE ELY MD (PCP) Patient Instructions: Hypertension Additional Instructions: May take extra blood pressure medication if the blood pressures more than 200/ 100 up to once a week Follow-up with your primary care physician in 3-5 days Return to emergency room if not getting better SUSANNAH CONN MD Nov 09, 2017 16:16
== END 2017-11-09 16:20 | disposition home or self-care (01) ==
LOC: ER 14:38
DX: I10 Essential (primary) hypertension (principal); F41.9 Anxiety disorder, unspecified; J44.9 Chronic obstructive pulmonary disease, unspecified; Z88.0 Allergy status to penicillin; Z88.2 Allergy status to sulfonamides; Z88.1 Allergy status to other antibiotic agents; Z88.4 Allergy status to anesthetic agent
CPT/HCPCS: 99283

== ENCOUNTER 2018-11-30 10:11 | Inpatient (IN) | payer MEDICARE, OTHER ==
[~2018-11-30] VITALS: Ht 142.2 cm; Wt 48.7 kg
[~2018-11-30 10:11] MED LIST changes: -LABE100T3 PO; +LABE100T5 PO; -LABE200T2 PO; +LABE200T4 PO; -OXYC-328 PO; +OXYC-411 PO; +OXYC1TAB22 PO; -OXYC1TAB9 PO
--- NOTE | 2018-11-30 10:22 | PHYS DOC ---
Past History Past Medical History: Anxiety, Asthma, COPD, Hypertension Past Surgical History: No Surgical History Alcohol Use: None Drug Use: None Adult General HPI HPI Patient is a 73 year old female sent down by Dr. Levy for evaluation of abdominal pain and rule out obstruction. She has a history of fluctuating diarrhea and constipation and takes stool softeners or antidiarrheal medication as needed. She most recently has been dealing with diarrhea and developed LLQ abdominal pain this morning. Last bout of diarrhea was this morning and it was "running out of me like water." She continues to feel like she needs to have a bowel movement but is not able to pass anything. Patient reports blood on toilet paper after wiping that she attributes to irritation. She has no history of bowel obstruction or abdominal surgery. Currently denies fevers, chills, nausea, vomiting, melena, or hematochezia. Review of Systems Review of Systems Constitutional: Denies fever or chills [] Eyes: Denies change in visual acuity, redness, or eye pain [] HENT: Denies nasal congestion or sore throat [] Respiratory: Denies cough or shortness of breath [] GI: Reports abdominal pain, diarrhea, sensation like she needs to have bowel movement [] : Denies dysuria or hematuria [] Musculoskeletal: Denies back pain or joint pain [] Integument: Denies rash or skin lesions [] Neurologic: focal weakness or sensory changes, reports headche [] Complete systems were reviewed and found to be within normal limits, except as documented in this note. Allergies Allergies Allergies Coded Allergies Type Severity Reaction Last Updated Verified fentanyl Allergy Severe 04/24/17 Yes Penicillins Allergy Intermediate 08/11/14 Yes Sulfa (Sulfonamide Antibiotics) Allergy Intermediate 04/25/17 Yes levofloxacin Allergy Intermediate 08/11/14 Yes Physical Exam Physical Exam Constitutional: Well developed, no acute distress, non-toxic appearance [] HENT: Normocephalic, atraumatic, oropharynx moist [] Eyes: EOMI, conjunctiva normal, no discharge. [] Cardiovascular: Heart rate regular rhythm, no murmur [] Lungs & Thorax: decreased breath sounds bilaterally, no wheezing [] Abdomen: lower abdominal tenderness, no guarding or rigidity. Rectal: Relay Dispatcher- RN; hard stool noted in rectal vault consistent for fecal impaction Skin: Warm, dry, no erythema, no rash. [] Back: No tenderness, no CVA tenderness. [] Extremities: No tenderness, moves all, no edema. [] Neurologic: Alert and oriented X 3, normal motor function, normal sensory function, no focal deficits noted. [] Psychologic: flat affect, judgement normal, mood normal. [] EKG EKG [] Radiology/Procedures Radiology/Procedures PROCEDURE: CT ABD PEL W/ORAL CONTRST ONLY EXAM: CT Abdomen and Pelvis without IV contrast CLINICAL HISTORY: Left lower quadrant pain COMPARISON: CT chest 04/25/2017 TECHNIQUE: Helical CT of the abdomen and pelvis without intravenous contrast. Axial, coronal and sagittal reformatted images were generated. PQRS compliance statement - One or more of the following individualized dose reduction techniques were utilized for this study: 1. Automated exposure control 2. Adjustment of the mA and/or kV according to patient size 3. Use of iterative reconstruction technique FINDINGS: Lack of intravenous contrast limits evaluation of solid organs, vasculature, and lymph nodes. Lower chest: Bilateral emphysematous changes are seen. Calcified granuloma seen in the left lower lobe. A 5 mm (image 18) right lower lobe nodular density was not seen on prior CT 04/25/2017. Dependent opacities bilaterally likely scarring/atelectasis. Pleural-based 6 mm middle lobe lung nodule (image 18) is also seen. Abdomen and Pelvis: A 0.8 cm hypodense right hepatic dome lesion is seen. Calcified granulomas are seen within the right lung. Cholecystectomy clips are seen.. No biliary ductal dilatation. Spleen is unremarkable. Pancreatic atrophy is seen without discrete pancreatic lesion. Adrenal glands are grossly unremarkable. Bilateral vascular calcifications are seen within the kidneys. Punctate right upper pole nonobstructing renal calculus. In general the right kidney is small. No hydronephrosis. No definite renal lesion. The bladder is markedly distended appearing to drape over the rectosigmoid posteriorly and partially herniating into a right inguinal hernia. Large volume colonic stool content is seen most prominent in the rectosigmoid. Mild fat infiltration is seen about a suspected stool ball in the rectum. Otherwise, no definite associated colonic diverticula or pericolonic fat infiltration/inflammatory changes are seen. No abnormal small bowel dilatation. Oral contrast was seen to the level of the mid small bowel. The appendix is not convincingly seen. Dense atherosclerotic calcifications of aorta and main branches. No abdominal or pelvic lymphadenopathy. No abdominal or pelvic ascites. Bones: Diffusely decreased bone mineral density. Multilevel degenerative changes are seen including the spine and symphysis pubis. Changes of spinal augmentation and L4 compression fracture are seen. Bilateral L5 pars defects with grade 1 anterolisthesis of L5 on S1. Sacral fractures with associated augmentation/methacrylate injection changes are seen. Leftward curvature of the lumbar spine. No definite new fracture is convincingly identified although evaluation is limited based on decreased bone mineral density. IMPRESSION: 1. Marked colonic stool content, most prominent in the rectosigmoid with likely stool ball within the rectum and associated perirectal inflammatory change. 2. No evidence for bowel obstruction or diverticulitis. 3. Moderate-sized distended and partially herniated into a right inguinal canal. This can be correlated for voluntary or involuntary causes of urinary retention. 4. Diffusely decreased bone mineral density limits evaluation for acute fracture. Old/chronic appearing fractures are seen within the sacrum and L4 vertebral body post vertebral augmentation changes Electronically signed by: Gil Graham MD (11/30/2018 12:10 PM) [facility] Course & Med Decision Making Course & Med Decision Making Pertinent Labs and Imaging studies reviewed. (See chart for details) Patient was sent to ED by Dr. Levy with concerns for bowel or fecal obstruction. Patient has been having abdominal pain and diarrhea. Despite the diarrhea she complains of rectal fullness and feels like she has to go but is unable to. CT abdomen/pelvis showed marked colonic stool content, most prominent in the rectosigmoid with likely stool impaction within the rectum and a significantly dilated bladder. Urinary retention relieved with peguero catheter. Fecal disimpaction performed. Patient requiring admission for further evaluation and treatment. Discussed with Dr. Hernandez (hospitalist) who is in agreement with admission. Discussed findings and plan with patient and family, who acknowledge understanding and agreement. [employer] voice recognition software utilized. [employer]askado Disclaimer K[place]ado Disclaimer This electronic medical record was generated, in whole or in part, using a voice recognition dictation system. Additional Procedures Progress RECTAL DISIMPACTION: Verbal consent obtained from patient. Relay Dispatcher RN. Rectal exam performed with [place] gel with digital manipulation and removal of fecal impaction. Significant amount of hard stool successfully removed. Patient tolerated procedure well and without difficulty. Departure Departure: Impression: Primary Impression: Fecal impaction Additional Impressions: Urinary retention Acute renal insufficiency Disposition: 09 ADMITTED INPATIENT Admitting Physician: Kelly Hernandez Condition: STABLE Referrals: TYREE ELY MD (PCP) Problem Qualifiers SALEEM LEROY DO Nov 30, 2018 10:22
[2018-11-30] MEDS ORDERED: IV NORMAL SALINE 1,000ML 1,000 ML IV ONE ×2 (10:30→12:45)
[2018-11-30] MEDS ORDERED: IOHEXOL 240 MG/ML 50ML VIAL. ONE (10:37)
[2018-11-30 10:48] LABS: BASO % 0 % (0-3); EOS # 0.1 x10^3/uL (0.0-0.7); EOS % 0 % (0-3); HEMATOCRIT 32.1 % (36.0-47.0); HEMOGLOBIN 10.1 g/dL (12.0-15.5); LYMPH # 0.7 x10^3/uL (1.0-4.8); LYMPH % 6 % (24-48); MEAN CORPUSCULAR HEMOGLOBIN 22 pg (25-35); MEAN CORPUSCULAR HGB CONC 32 g/dL (31-37); MEAN CORPUSCULAR VOLUME 70 fL (79-100); MONO # 0.8 x10^3/uL (0.0-1.1); MONO % 7 % (0-9); NEUT # 9.7 x10^3uL (1.8-7.7); NEUT % 86 % (31-73); PLATELET COUNT 309 x10^3/uL (140-400); RED CELL DISTRIBUTION WIDTH 18.9 % (11.5-14.5); WHITE BLOOD COUNT 11.3 x10^3/uL (4.0-11.0)
[2018-11-30] MEDS ORDERED: IOHEXOL 240 MG/ML 50ML VIAL. PO ONE (11:00)
[2018-11-30 11:07] LABS: ALBUMIN 3.5 g/dL (3.4-5.0); ALBUMIN/GLOBULIN RATIO 0.9 (1.0-1.7); CREATININE 1.2 mg/dL (0.6-1.0); GFR 43.8; MAGNESIUM 1.9 mg/dL (1.8-2.4); POTASSIUM 4.1 mmol/L (3.5-5.1); TOTAL BILIRUBIN 0.3 mg/dL (0.2-1.0); TOTAL PROTEIN 7.3 g/dL (6.4-8.2)
[2018-11-30] MEDS ORDERED: IOHEXOL 300 MG/ML 75 ML VIAL. IV ONE (11:15)
[2018-11-30 11:44] LABS: ACANTHOCYTES PRESENT; ANISOCYTOSIS SLIGHT; HYPOCHROMIA MOD; MICROCYTOSIS MOD; OVALOCYTES PRESENT; PLT ESTIMATE ADEQUATE (ADEQUATE); POIKILOCYTOSIS PRESENT; SCHISTOCYTES OCC; TOXIC GRANULATION PRESENT
--- NOTE | 2018-11-30 12:13 | RAD ---
EXAM: CT Abdomen and Pelvis without IV contrast CLINICAL HISTORY: Left lower quadrant pain COMPARISON: CT chest 04/25/2017 TECHNIQUE: Helical CT of the abdomen and pelvis without intravenous contrast. Axial, coronal and sagittal reformatted images were generated. PQRS compliance statement - One or more of the following individualized dose reduction techniques were utilized for this study: 1. Automated exposure control 2. Adjustment of the mA and/or kV according to patient size 3. Use of iterative reconstruction technique FINDINGS: Lack of intravenous contrast limits evaluation of solid organs, vasculature, and lymph nodes. Lower chest: Bilateral emphysematous changes are seen. Calcified granuloma seen in the left lower lobe. A 5 mm (image 18) right lower lobe nodular density was not seen on prior CT 04/25/2017. Dependent opacities bilaterally likely scarring/atelectasis. Pleural-based 6 mm middle lobe lung nodule (image 18) is also seen. Abdomen and Pelvis: A 0.8 cm hypodense right hepatic dome lesion is seen. Calcified granulomas are seen within the right lung. Cholecystectomy clips are seen.. No biliary ductal dilatation. Spleen is unremarkable. Pancreatic atrophy is seen without discrete pancreatic lesion. Adrenal glands are grossly unremarkable. Bilateral vascular calcifications are seen within the kidneys. Punctate right upper pole nonobstructing renal calculus. In general the right kidney is small. No hydronephrosis. No definite renal lesion. The bladder is markedly distended appearing to drape over the rectosigmoid posteriorly and partially herniating into a right inguinal hernia. Large volume colonic stool content is seen most prominent in the rectosigmoid. Mild fat infiltration is seen about a suspected stool ball in the rectum. Otherwise, no definite associated colonic diverticula or pericolonic fat infiltration/inflammatory changes are seen. No abnormal small bowel dilatation. Oral contrast was seen to the level of the mid small bowel. The appendix is not convincingly seen. Dense atherosclerotic calcifications of aorta and main branches. No abdominal or pelvic lymphadenopathy. No abdominal or pelvic ascites. Bones: Diffusely decreased bone mineral density. Multilevel degenerative changes are seen including the spine and symphysis pubis. Changes of spinal augmentation and L4 compression fracture are seen. Bilateral L5 pars defects with grade 1 anterolisthesis of L5 on S1. Sacral fractures with associated augmentation/methacrylate injection changes are seen. Leftward curvature of the lumbar spine. No definite new fracture is convincingly identified although evaluation is limited based on decreased bone mineral density. IMPRESSION: 1. Marked colonic stool content, most prominent in the rectosigmoid with likely stool ball within the rectum and associated perirectal inflammatory change. 2. No evidence for bowel obstruction or diverticulitis. 3. Moderate-sized distended and partially herniated into a right inguinal canal. This can be correlated for voluntary or involuntary causes of urinary retention. 4. Diffusely decreased bone mineral density limits evaluation for acute fracture. Old/chronic appearing fractures are seen within the sacrum and L4 vertebral body post vertebral augmentation changes Electronically signed by: Gil Graham MD (11/30/2018 12:10 PM) [facility]
[2018-11-30 12:25] LABS: BILIRUBIN,URINE NEG (NEG); CLARITY,URINE HAZY; COLOR,URINE STRAW; GLUCOSE,URINE NEG (NEG); NITRITE,URINE NEG (NEG); UROBILINOGEN,URINE 0.2 mg/dL (0.2 mg/dL)
[2018-11-30 12:26] LABS: BACTERIA,URINE FEW /HPF (0-FEW); SQUAMOUS EPITHELIAL CELL,UR FEW /LPF
[2018-11-30] MEDS ORDERED: ONDANSETRON PF 4 MG/2 ML VIAL. IV PRN (12:45)
[2018-11-30] MEDS ORDERED: MORPHINE SULFATE 4 MG/ML DISP.SYRIN. IV ONE (13:00)
[2018-11-30] MEDS ORDERED: KETOROLAC 15 MG/ML VIAL. IV ONE (14:30)
[2018-11-30 15:20] VITALS: BP 175/75
[2018-11-30] MEDS ORDERED: ALBUTEROL SULFATE 2.5 MG/3 ML NEBU. NEB PRN (16:30)
[2018-11-30] MEDS ORDERED: OLAN5TAB9 PO (16:38)
[2018-11-30] MEDS ORDERED: FURO20TA3 PO (16:38)
[2018-11-30] MEDS ORDERED: DONE10TA7 PO (16:38)
[2018-11-30] MEDS ORDERED: DEXL60CA2 PO (16:38)
[2018-11-30] MEDS ORDERED: VALS320T2 PO (16:38)
[2018-11-30] MEDS ORDERED: ONDA4TAB12 PO (16:38)
[2018-11-30] MEDS: oxyCODONE/APAP 10/325 1 TAB TABLET PO PRN ×2 (17:15→23:43)
[2018-11-30] MEDS ORDERED: ONDANSETRON ODT 4 MG TAB.RAPDIS PO PRN (17:15)
[2018-11-30] MEDS: IV NORMAL SALINE 1,000ML 1,000 ML IV SCH (17:19)
[2018-11-30] MEDS ORDERED: METHYLNALTREXONE 12 MG/0.6 ML VIAL. SQ ONE (17:30)
[2018-11-30] MEDS: DOCUSATE SODIUM 100 MG CAPSULE PO PRN (18:02)
[2018-11-30 19:23] VITALS: BP 119/67
[2018-11-30] MEDS: OLANZapine 2.5 MG TABLET PO SCH (20:20)
[2018-11-30] MEDS: CELECOXIB 100 MG CAPSULE PO SCH (20:21)
[2018-11-30] MEDS: ALBUTEROL SULFATE 2.5 MG/3 ML NEBU. NEB SCH (20:44)
[2018-11-30] MEDS: BUDESONIDE 0.5 MG/2 ML NEBU NEB SCH (20:44)
[2018-11-30] MEDS ORDERED: NON FORMULARY ITEM (Fluticasone/Salmeterol (Advair 500-50 Diskus) 1 EACH) IH SCH (21:00)
[2018-11-30 23:12] VITALS: BP 163/79
[2018-12-01 05:34] VITALS: BP 160/78
[2018-12-01] MEDS: oxyCODONE/APAP 10/325 1 TAB TABLET PO PRN ×3 (05:34→18:34)
[2018-12-01] MEDS: IV NORMAL SALINE 1,000ML 1,000 ML IV SCH ×3 (05:34→20:35)
[2018-12-01] MEDS: ALBUTEROL SULFATE 2.5 MG/3 ML NEBU. NEB SCH ×4 (05:40→21:30)
[2018-12-01] MEDS: predniSONE 5 MG TABLET PO SCH (08:04)
[2018-12-01] MEDS: CYCLOBENZAPRINE 10 MG TABLET. PO SCH (08:04)
[2018-12-01] MEDS: DOCUSATE SODIUM 100 MG CAPSULE PO PRN (08:04)
[2018-12-01] MEDS: clonazePAM 0.5 MG TABLET PO SCH (08:04)
[2018-12-01] MEDS: CETIRIZINE HCL 10 MG TABLET PO SCH (08:04)
[2018-12-01] MEDS: PANTOPRAZOLE 40 MG TABLET. PO SCH (08:04)
[2018-12-01] MEDS: CELECOXIB 100 MG CAPSULE PO SCH ×2 (08:04→20:33)
[2018-12-01] MEDS: MULTIVITAMIN with MINERAL TABLET. PO SCH (08:04)
[2018-12-01] MEDS: FUROSEMIDE 20 MG TABLET PO SCH (08:05)
[2018-12-01] MEDS: LOSARTAN 50 MG TABLET. PO SCH (08:05)
[2018-12-01] MEDS: FLUTICASONE 50MCG/NASAL SPRAY 16GM BOTTLE. NS SCH (08:07)
[2018-12-01] MEDS: POLYETHYLENE GLYCOL 3350 17 GM PACKET. PO SCH (08:07)
[2018-12-01] MEDS: ROFLUMILAST 500 MCG TABLET PO SCH (08:10)
[2018-12-01] MEDS: RALOXIFENE 60 MG TABLET. PO SCH (08:10)
[2018-12-01] MEDS: BUDESONIDE 0.5 MG/2 ML NEBU NEB SCH ×2 (09:53→21:30)
[2018-12-01 10:43] VITALS: BP 165/73
--- NOTE | 2018-12-01 15:57 | RAD ---
VISHAL, 12/01/2018: HISTORY: Follow-up constipation The oral contrast material has passed into the colon. The colon is not significantly dilated. There is a moderate amount gas in the stomach. There are extensive arterial calcifications. Bilateral sacroplasty and L5 vertebroplasty changes are again noted. IMPRESSION: Resolving constipation with passage of the oral CT contrast material into the colon since yesterday's CT exam. Electronically signed by: Sami Jacobs MD (12/01/2018 3:54 PM) [facility]
[2018-12-01 15:58] VITALS: BP 195/78
[2018-12-01] MEDS: LUBIPROSTONE 24 MCG CAPSULE PO SCH (16:40)
[2018-12-01 19:53] VITALS: BP 184/76
[2018-12-01] MEDS: OLANZapine 2.5 MG TABLET PO SCH (20:33)
[2018-12-01 22:29] VITALS: BP 155/69
--- NOTE | 2018-12-01 22:31 | HP ---
ADMIT DATE: 11/30/2018 HISTORY OF PRESENT ILLNESS: The patient is a 73-year-old female patient, who was actually sent to the Emergency Room from her primary care physician, Dr. Delong for evaluation of abdominal pain and rule out obstruction. She apparently has a history of fluctuating diarrhea and constipation and takes stool softeners and/or antidiarrheal medication as needed. She most recently has been dealing with diarrhea and developed left lower quadrant abdominal pain. She has had diarrhea in the morning of admission that she describes as running out to me like water. She continues to feel like she needs to have a bowel movement, but she is not able to pass anything. The patient reports blood on the toilet paper after wiping that she attributes to irritation. She has no history of bowel obstruction or abdominal surgery. She was extensively investigated in the Emergency Room and has had a CT scan of the abdomen and pelvis, which showed that the patient has marked colonic stool contents most prominent in the rectosigmoid with likely stool ball within the rectum and associated perirectal inflammatory changes. There was no evidence of bowel obstruction or diverticulitis. She has moderate-sized distended urinary bladder, partially herniated into the right inguinal canal. This can be correlated for voluntary and involuntary causes of urinary retention. She has diffusely decreased bone mineral density, limited evaluation for acute fracture. She does have old chronic-appearing fracture seen within the sacrum and L4 vertebral body, post-vertebral augmentation changes. Apparently, the patient underwent digital disimpaction in the Emergency Room by the ER physician and was admitted to the hospital for further treatment. PAST MEDICAL HISTORY: Significant for hypertension, chronic obstructive pulmonary disease, diverticulosis, cholelithiasis, anemia and hypertension. PAST SURGICAL HISTORY: apparently unremarkable. FAMILY HISTORY: Noncontributory. SOCIAL HISTORY: She lives with her . She continued to smoke 1-2 cigarettes a day. She drinks alcohol occasionally. Does not use any drugs. REVIEW OF SYSTEMS: The patient denied any blurring of vision, cataract, glaucoma or macular degeneration. Denied any earache, tinnitus or sensorineural deafness. Denied any nosebleeds, stuffy nose or postnasal drip. Denied any sore throat, sore tongue, toothache, hoarseness of voice or difficulty swallowing. Denied any nausea, vomiting. Did complain of diarrhea and constipation. Denied any hematemesis, melena, hematochezia. She used to self-catheterize before, but she is no longer doing that. Denied any chest pain, shortness of breath, orthopnea or paroxysmal nocturnal dyspnea. Denied any cough, phlegm or hemoptysis. MEDICATIONS: The patient continues on following medications: Cetirizine 10 mg once a day, Aricept 10 mg once a day, cyclobenzaprine 10 mg once a day, valsartan 320 mg once a day, Celebrex 200 mg twice a day, oxycodone/APAP 10/325 one tablet every 6 hours, clonazepam 0.5 mg daily, olanzapine 0.5 mg at bedtime, furosemide 10 mg daily, Advair Diskus 500/50 one inhalation twice a day, Daliresp 500 mcg p.o. daily, mometasone furoate for Nasonex 2 sprays to each nostril daily, ondansetron 4 mg every 6-8 hours, Dexilant 1 capsule daily, prednisone 5 mg once a day, Evista 60 mg once a day, multivitamin with mineral 1 tablet once a day. ALLERGIES: THE PATIENT IS ALLERGIC TO PENICILLIN, SULFA DRUGS, FENTANYL, LEVOFLOXACIN AND MORPHINE. PHYSICAL EXAMINATION: GENERAL: On arrival to the Emergency Room, the patient looked well and was clearly in no apparent respiratory distress, slightly pale, but no jaundice, cyanosis, or thyromegaly. No jugular venous distension. No lower limb edema. VITAL SIGNS: Her heart rate was 105, blood pressure was 121/69, temperature was 98.1, respiratory rate was 22, and oxygen saturation was 98% on room air. HEAD, EYES, EARS, NOSE AND THROAT: Showed normocephalic, atraumatic. NECK: Supple. HEART: Showed normal first and second heart sounds with no gallop, rub or murmur. CHEST: Clear to auscultation. No crepitation or rhonchi. ABDOMEN: Distended, soft with tenderness mostly in the suprapubic area. No guarding or rigidity. No organomegaly. All hernial orifices intact. Bowel sounds normal. RECTAL: Showed that she has impacted fecal impaction and underwent digital disimpaction by the ER physician. NEUROLOGICAL: She is awake, alert, responding appropriately. All her cranial nerves intact. She moves extremities without difficulty. She ambulates without assistance or assistive devices. EXTREMITIES: Showed that she has clubbing in her fingers. LABORATORY DATA: On admission showed a white cell count of 11,300, hemoglobin 10, hematocrit 32, MCV 70 and platelet count of 309,000 with normal manual differential. Her chemistry showed a serum sodium 131, potassium 4.1, chloride 95, bicarbonate 22, anion gap of 22. Creatinine was 1.2, estimated GFR was 44 mL per minute. Her glucose was 106. Lactic acid was 2. Calcium was 9. Magnesium was 1.9. Total bilirubin, AST, ALT, alkaline phosphatase were normal. Total protein was 7.3, albumin 3.5. Lipase was 93. Her prothrombin time was 9.5, INR of 1, aPTT was 24. Urinalysis showed the urine was straw colored, hazy with a pH of 7, specific gravity of 1.010. The urine was negative for protein, glucose, ketones, small amount of blood, negative for nitrite, small amount of leukocyte esterase, 1-2 rbc's, 1-4 wbc's and very few bacteria. She had a CT scan of the abdomen and pelvis, which showed that the patient has bilateral emphysematous changes seen, calcified granuloma seen in the left lower lobe 5-mm, right lower lobe nodular density was not seen on prior CT scan, dependent opacities bilaterally, likely scarring atelectasis, pleural space 6 mm middle lobe, left lung nodule. The CT scan of the abdomen and pelvis showed the patient has a 0.8 cm hypodense right hepatic dome lesion. She has calcified granulomas seen within the right lung. Cholecystectomy clips are seen. No biliary ductal dilatation. Spleen is unremarkable. Pancreatic atrophy is seen without discrete pancreatic lesion. Adrenal glands are grossly unremarkable. Bilateral vascular calcification seen within the kidneys, punctate right upper pole nonobstructing renal calculus. In general, the right kidney is small. No hydronephrosis. No definite renal lesion. The bladder is markedly distended appearing to drape over the rectosigmoid posteriorly and partially herniating into the right inguinal canal. She has large volume, colonic stool content is seen most prominent in the rectosigmoid, mild fat infiltration is seen about the suspected stool ball in the rectum; otherwise, no definite associated colonic diverticula or pericolonic fat infiltration. No inflammatory changes are seen. No abnormal small bowel dilatation. Oral contrast was seen to the level of the mid small bowel. The appendix is not convincingly seen. She has dense atherosclerotic calcification of the aorta and main branches. No abdominal or pelvic lymphadenopathy. No abdominal or pelvic ascites. The patient was admitted with severe constipation, most likely due to narcotic-induced. PLAN: Obviously would continue with laxatives, MiraLax as well as Colace and we did give her Relistor. We will continue to follow her closely and see how she responds to that. DAISY WANG MD DR: SONNY/guillermo JOB#: [id number] / [id number]
--- NOTE | 2018-12-01 23:05 | PN ---
DATE: 12/01/2018 SUBJECTIVE: The patient was admitted yesterday with severe abdominal pain and was found to have fecal impaction as well as needing attention. She has an indwelling [place] catheter placed in and underwent digital disimpaction. We started her on Colace, MiraLax as well as Relistor. She apparently has only small amount of hard stool, hard pellet this morning. We did take the catheter out. The patient denied any abdominal pain. Denied any nausea or vomiting. OBJECTIVE: GENERAL: When I saw her this afternoon, she looked well and was clearly in no apparent respiratory distress. No pallor, jaundice, cyanosis, or thyromegaly. No jugular venous distention. No limb edema. VITAL SIGNS: Her heart rate was 96, blood pressure was 165/73, temperature was 97.6, respiratory rate was 20, and her oxygen saturation was 93% on 2 liters of oxygen. HEAD, EYES, EARS, NOSE AND THROAT: Showed normocephalic, atraumatic. NECK: Supple. HEART: Showed normal first and second heart sounds with no gallop, rub or murmur. CHEST: Clear to auscultation. No crepitation or rhonchi. ABDOMEN: Distended, soft, nontender. No guarding or rigidity. No organomegaly. All hernial orifice intact. Bowel sounds normal. NEUROLOGIC: She is awake, alert, responding appropriately. All cranial nerves intact. She moves extremities without difficulty. She ambulates without assistance or assistive devices. Her intake over the last 24 hours was 2470, output was 1750. LABORATORY DATA: No lab works were done this morning. PLAN: My plan is to arrange for a KUB. I will repeat all her lab works tomorrow including TSH. I added Myraza and we will decide on further management accordingly. DAISY WANG MD DR: SONNY/giullermo JOB#: [id number] / [id number]
[2018-12-02] MEDS: oxyCODONE/APAP 10/325 1 TAB TABLET PO PRN ×3 (00:32→13:02)
[2018-12-02] MEDS: ALBUTEROL SULFATE 2.5 MG/3 ML NEBU. NEB SCH ×2 (05:13→10:07)
[2018-12-02 05:14] VITALS: BP 185/93
[2018-12-02 06:56] LABS: HEMATOCRIT 29.8 % (36.0-47.0); HEMOGLOBIN 9.5 g/dL (12.0-15.5); RED BLOOD COUNT 4.26 x10^6/uL (3.50-5.40); RED CELL DISTRIBUTION WIDTH 19.5 % (11.5-14.5); WHITE BLOOD COUNT 8.8 x10^3/uL (4.0-11.0)
[2018-12-02 06:57] LABS: ALBUMIN 2.9 g/dL (3.4-5.0); ALBUMIN/GLOBULIN RATIO 0.9 (1.0-1.7); CALCIUM 8.4 mg/dL (8.5-10.1); CREATININE 0.9 mg/dL (0.6-1.0); POTASSIUM 3.5 mmol/L (3.5-5.1); TOTAL BILIRUBIN 0.2 mg/dL (0.2-1.0); TOTAL PROTEIN 6.2 g/dL (6.4-8.2)
[2018-12-02] MEDS: BUDESONIDE 0.5 MG/2 ML NEBU NEB SCH (08:00)
[2018-12-02] MEDS: FLUTICASONE 50MCG/NASAL SPRAY 16GM BOTTLE. NS SCH (08:04)
[2018-12-02] MEDS: clonazePAM 0.5 MG TABLET PO SCH (08:05)
[2018-12-02] MEDS: POLYETHYLENE GLYCOL 3350 17 GM PACKET. PO SCH (08:05)
[2018-12-02] MEDS: CYCLOBENZAPRINE 10 MG TABLET. PO SCH (08:05)
[2018-12-02] MEDS: MULTIVITAMIN with MINERAL TABLET. PO SCH (08:05)
[2018-12-02] MEDS: LOSARTAN 50 MG TABLET. PO SCH (08:05)
[2018-12-02] MEDS: FUROSEMIDE 20 MG TABLET PO SCH (08:06)
[2018-12-02] MEDS: PANTOPRAZOLE 40 MG TABLET. PO SCH (08:06)
[2018-12-02] MEDS: predniSONE 5 MG TABLET PO SCH (08:06)
[2018-12-02] MEDS: LUBIPROSTONE 24 MCG CAPSULE PO SCH (08:07)
[2018-12-02] MEDS: ROFLUMILAST 500 MCG TABLET PO SCH (08:07)
[2018-12-02] MEDS: CELECOXIB 100 MG CAPSULE PO SCH (08:07)
[2018-12-02] MEDS: CETIRIZINE HCL 10 MG TABLET PO SCH (08:07)
[2018-12-02] MEDS: RALOXIFENE 60 MG TABLET. PO SCH (08:08)
[2018-12-02 11:04] VITALS: BP 152/79
--- NOTE | 2018-12-02 17:05 | DS ---
DATE OF DISCHARGE: 12/02/2018 HOSPITAL COURSE: The patient is a 73-year-old female patient who was admitted through the Emergency Room with severe constipation. She was actually found to have fecal impaction that required digital disimpaction. We did treat her with Colace, MiraLax and Amitiza, and she did very well. She has multiple bowel movements and therefore, a decision was made to discharge her home with home health and arrangement has been made for her to be seen by Dr. Maxwell for colonoscopy. PHYSICAL EXAMINATION: GENERAL: When I examined her today, she looked well and was clearly in no apparent respiratory distress. No pallor, jaundice, cyanosis, or thyromegaly. No jugular venous distension. No limb edema. VITAL SIGNS: Her heart rate was 82, blood pressure was 152/79, temperature was 97.3, respiratory rate was 24, and oxygen saturation was 98%. HEAD, EYES, EARS, NOSE AND THROAT: Normocephalic, atraumatic. NECK: Supple. HEART: Showed normal first and second heart sounds with no gallop, rub or murmur. CHEST: Clear to auscultation. No crepitation or rhonchi. ABDOMEN: Distended, soft, nontender. NEUROLOGIC: She is awake, alert, responding appropriately. All her cranial nerves are intact. She moves extremities without difficulty. She ambulates without assistance or assistive devices. Her intake over the last 24 hours was 2470, output 1750. LABORATORY DATA: Her lab work as of this morning showed a white cell count of 8800, hemoglobin 10, hematocrit 30, MCV 70 and platelet count 280,000. Her chemistry showed a serum sodium 137, potassium 3.5, chloride 104, bicarbonate 23, anion gap of 10, BUN 12, creatinine 0.9, estimated GFR was 61 mL per minute. Her glucose was 99, calcium was 8.4. Total bilirubin, AST, ALT, alkaline phosphatase were normal. Total protein was 6.2, albumin 2.9. Her TSH was normal at 1.316. DISCHARGE MEDICATIONS: The patient was discharged home to continue on following medication: Celebrex 200 mg twice a day, cetirizine 10 mg once a day, clonazepam 0.5 mg at bedtime, cyclobenzaprine 10 mg daily, Dexilant 60 mg once a day, Aricept 10 mg once a day, Advair Diskus 500/50 one inhalation twice a day, Centrum multivitamin tablet chewable 1 tablet once a day, furosemide 10 mg once a day, mometasone furoate for Nasonex 2 sprays to each nostril daily, olanzapine 2.5 mg at bedtime, ondansetron 4 mg every 4 hours as needed, oxycodone/APAP 10/325 one tablet every 6 hours, prednisone 5 mg daily, raloxifene for Evista 60 mg daily, Daliresp 500 mcg once a day, and valsartan for Diovan 320 mg once a day. FINAL DISCHARGE DIAGNOSES: Opioid-induced constipation, resolved; hypertension, chronic obstructive pulmonary disease, diverticulosis, cholelithiasis, anemia, hyponatremia, and acute kidney injury that has also resolved. Her creatinine came down from 1.2 to 0.9. Hypernatremia has also resolved. Serum sodium is up from 131 to 137. Moderate protein-calorie malnutrition. DAISY WANG MD DR: SONNY/guillermo JOB#: [id number] / [id number]
== END 2018-12-02 14:30 | disposition home health service (06) | DRG 391 ==
LOC: ER 10:11 → 1 SOUTH 12:40 → ER 14:50
PROVIDERS: ADMIT Internal Medicine; ATTEND Internal Medicine
DX: K59.03 Drug induced constipation (principal); N17.0 Acute kidney failure with tubular necrosis; E44.0 Moderate protein-calorie malnutrition; E87.1 Hypo-osmolality and hyponatremia; R33.9 Retention of urine, unspecified; N28.9 Disorder of kidney and ureter, unspecified; F41.9 Anxiety disorder, unspecified; K57.90 Diverticulosis of intestine, part unspecified, without perforation or abscess without bleeding; F17.210 Nicotine dependence, cigarettes, uncomplicated; I10 Essential (primary) hypertension; J44.9 Chronic obstructive pulmonary disease, unspecified; T40.2X5A Adverse effect of other opioids, initial encounter; Z88.1 Allergy status to other antibiotic agents; Z79.899 Other long term (current) drug therapy; Z88.0 Allergy status to penicillin; Z88.2 Allergy status to sulfonamides; Z88.8 Allergy status to other drugs, medicaments and biological substances; Z68.24 Body mass index [BMI] 24.0-24.9, adult
CPT/HCPCS: 36415; 74018; 74176; 80053; 81001; 83605; 83690; 83735; 84443; 85025; 85027; 85610; 85730; 87086; 94640; 96361; 96374; 96375; 99406; J1885; J2212; J2405; J7512; J7613; J7626; 99285-25; J7030

== ENCOUNTER 2018-12-10 11:26 | Inpatient (IN) | payer MEDICARE, OTHER ==
[~2018-12-10] VITALS: Ht 165.1 cm; Wt 48.2 kg
[~2018-12-10 11:26] MED LIST changes: +DEXL60CA2 PO; +DONE10TA7 PO; +FURO20TA3 PO; +ONDA4TAB12 PO
--- NOTE | 2018-12-10 12:03 | RAD ---
PORTABLE CHEST 1V Clinical Indication: ALTERED MENTAL STATUS. HISTORY OF ALZHEIMERS. Comparison: AP chest April 24, 2017. Findings: Atherosclerotic thoracic aorta. The cardiomediastinal silhouette is normal. Stable calcified granuloma right midlung. No acute airspace disease. Minimal scarring in the left lung base is stable. There is no pneumothorax. No pleural effusion is appreciated. No acute bone abnormality. IMPRESSION: No acute cardiopulmonary process. Electronically signed by: Alex Gonzales MD (12/10/2018 12:01 PM) [id number]
[2018-12-10 12:12] LABS: BASO % 0 % (0-3); EOS # 0.1 x10^3/uL (0.0-0.7); EOS % 1 % (0-3); HEMATOCRIT 31.8 % (36.0-47.0); HEMOGLOBIN 10.1 g/dL (12.0-15.5); LYMPH # 0.6 x10^3/uL (1.0-4.8); LYMPH % 6 % (24-48); MEAN CORPUSCULAR HEMOGLOBIN 22 pg (25-35); MEAN CORPUSCULAR HGB CONC 32 g/dL (31-37); MEAN CORPUSCULAR VOLUME 70 fL (79-100); MONO # 0.7 x10^3/uL (0.0-1.1); MONO % 8 % (0-9); NEUT # 7.6 x10^3uL (1.8-7.7); NEUT % 84 % (31-73); PLATELET COUNT 367 x10^3/uL (140-400); RED BLOOD COUNT 4.54 x10^6/uL (3.50-5.40); RED CELL DISTRIBUTION WIDTH 19.6 % (11.5-14.5)
[2018-12-10 12:34] LABS: ALBUMIN 3.5 g/dL (3.4-5.0); CALCIUM 9.3 mg/dL (8.5-10.1); CREATININE 1.3 mg/dL (0.6-1.0); GFR 39.9; MAGNESIUM 2.3 mg/dL (1.8-2.4); POTASSIUM 4.8 mmol/L (3.5-5.1); TOTAL BILIRUBIN 0.3 mg/dL (0.2-1.0); TOTAL PROTEIN 6.9 g/dL (6.4-8.2)
[2018-12-10] MEDS ORDERED: cefTRIAXone SODIUM 1 GM VIAL ONE (12:48)
[2018-12-10] MEDS ORDERED: IV NORMAL SALINE 50ML 50 ML ONE (12:48)
--- NOTE | 2018-12-10 12:48 | PHYS DOC ---
Past History Past Medical History: Anxiety, Asthma, Constipation, COPD, Hypertension, Other Past Surgical History: Cancer Surgery, Cholecystectomy, Other Alcohol Use: None Drug Use: None Adult General Chief Complaint Chief Complaint: ALTERED MENTAL STATUS [facility] HPI Patient is a 73 year old female who brought in by her because of altered level of consciousness. Patient was admitted recently because of fecal impaction and discharged home few days ago and seen by home health care every day. Patient home health nurse was concerned the patient was not acting like her normal. Patient state she is eating and drinking well but starring at the ceiling and was confused and not talking most of the time. Patient is alert and oriented 3 but has pauses with answering the question. Patient denies any problem. Review of Systems Review of Systems Constitutional: Denies fever or chills [] Eyes: Denies change in visual acuity, redness, or eye pain [] HENT: Denies nasal congestion or sore throat [] Respiratory: Denies cough or shortness of breath [] Cardiovascular: No additional information not addressed in HPI [] GI: Denies abdominal pain, nausea, vomiting, bloody stools or diarrhea [] : Denies dysuria or hematuria [] Musculoskeletal: Denies back pain or joint pain [] Integument: Denies rash or skin lesions [] Neurologic: Denies headache, focal weakness or sensory changes [] Endocrine: Denies polyuria or polydipsia [] All other systems were reviewed and found to be within normal limits, except as documented in this note. Current Medications Current Medications Current Medications Medications (Trade) Dose Ordered Sig/Branden Start Time Stop Time Status Last Admin Dose Admin Ceftriaxone Sodium 1 gm/ Sodium Chloride 50 ml @ 100 mls/hr 1X ONCE 12/10/18 12:45 12/10/18 13:14 UNV Sodium Chloride 1,000 ml @ 1,000 mls/hr 1X ONCE 12/10/18 12:45 12/10/18 13:44 UNV Allergies Allergies Allergies Coded Allergies Type Severity Reaction Last Updated Verified fentanyl Allergy Severe 04/24/17 Yes Penicillins Allergy Intermediate 08/11/14 Yes Sulfa (Sulfonamide Antibiotics) Allergy Intermediate 04/25/17 Yes levofloxacin Allergy Intermediate 08/11/14 Yes morphine Allergy Intermediate 11/30/18 Yes Physical Exam Physical Exam Constitutional: Well nourished, no acute distress, non-toxic appearance. [] HENT: Normocephalic, atraumatic, oropharynx moist, no oral exudates, nose normal. [] Eyes: PERRLA, EOMI, conjunctiva normal, no discharge. [] Neck: Normal range of motion, no tenderness, supple, no stridor. [] Cardiovascular: Tachycardia, no murmur [] Lungs & Thorax: Bilateral breath sounds clear to auscultation [] Abdomen: Bowel sounds normal, mildly distended with gas, soft, no tenderness, no masses, no pulsatile masses. [] Skin: Warm, dry, no erythema, no rash. [] Back: No tenderness, no CVA tenderness. [] Extremities: No tenderness, no cyanosis, no clubbing, ROM intact, no edema. [] Neurologic: Alert and oriented X 3, normal motor function, normal sensory function, no focal deficits noted, slow reaction to question. [] Psychologic: Affect depressed. Current Patient Data Vital Signs Vital Signs Date Time Temp Pulse Resp B/P (MAP) Pulse Ox O2 Delivery O2 Flow Rate FiO2 12/10/18 11:30 98.4 115 20 97 Room Air Lab Results Laboratory Tests Test 12/10/18 11:45 White Blood Count 9.0 x10^3/uL (4.0-11.0) Red Blood Count 4.54 x10^6/uL (3.50-5.40) Hemoglobin 10.1 g/dL (12.0-15.5) L Hematocrit 31.8 % (36.0-47.0) L Mean Corpuscular Volume 70 fL (79-100) L Mean Corpuscular Hemoglobin 22 pg (25-35) L Mean Corpuscular Hemoglobin Concent 32 g/dL (31-37) Red Cell Distribution Width 19.6 % (11.5-14.5) H Platelet Count 367 x10^3/uL (140-400) Neutrophils (%) (Auto) 84 % (31-73) H Lymphocytes (%) (Auto) 6 % (24-48) L Monocytes (%) (Auto) 8 % (0-9) Eosinophils (%) (Auto) 1 % (0-3) Basophils (%) (Auto) 0 % (0-3) Neutrophils # (Auto) 7.6 x10^3uL (1.8-7.7) Lymphocytes # (Auto) 0.6 x10^3/uL (1.0-4.8) L Monocytes # (Auto) 0.7 x10^3/uL (0.0-1.1) Eosinophils # (Auto) 0.1 x10^3/uL (0.0-0.7) Basophils # (Auto) 0.0 x10^3/uL (0.0-0.2) Sodium Level 133 mmol/L (136-145) L Potassium Level 4.8 mmol/L (3.5-5.1) Chloride Level 97 mmol/L (98-107) L Carbon Dioxide Level 25 mmol/L (21-32) Anion Gap 11 (6-14) Blood Urea Nitrogen 27 mg/dL (7-20) H Creatinine 1.3 mg/dL (0.6-1.0) H Estimated GFR (Cockcroft-Gault) 39.9 BUN/Creatinine Ratio 21 (6-20) H Glucose Level 121 mg/dL (70-99) H Lactic Acid Level 2.9 mmol/L (0.4-2.0) H Calcium Level 9.3 mg/dL (8.5-10.1) Magnesium Level 2.3 mg/dL (1.8-2.4) Total Bilirubin 0.3 mg/dL (0.2-1.0) Aspartate Amino Transferase (AST) 19 U/L (15-37) Alanine Aminotransferase (ALT) 19 U/L (14-59) Alkaline Phosphatase 63 U/L (46-116) Creatine Kinase 93 U/L (26-192) Troponin I Quantitative < 0.017 ng/mL (0-0.055) RJ-Qix-F-Type Natriuretic Peptide 401 pg/mL (0-449) Total Protein 6.9 g/dL (6.4-8.2) Albumin 3.5 g/dL (3.4-5.0) Albumin/Globulin Ratio 1.0 (1.0-1.7) EKG EKG EKG interpreted by me. EKG at 1146 showed sinus rhythm at rate of 100, right axis deviation, T-wave abnormalities in lateral leads, poor R-wave progress in anteroseptal leads, no acute ST and T-wave abnormalities.] Radiology/Procedures Radiology/Procedures [address] [id number] IMAGING REPORT Signed PATIENT: CLINTON MEIER ACCOUNT: [id number] : 1945 LOCATION: ER AGE: 73 SEX: F EXAM STATUS: REG ER ORD. PHYSICIAN: SUSANNAH CONN MD REASON: ALOC PROCEDURE: PORTABLE CHEST 1V PORTABLE CHEST 1V Clinical Indication: ALTERED MENTAL STATUS. HISTORY OF ALZHEIMERS. Comparison: AP chest April 24, 2017. Findings: Atherosclerotic thoracic aorta. The cardiomediastinal silhouette is normal. Stable calcified granuloma right midlung. No acute airspace disease. Minimal scarring in the left lung base is stable. There is no pneumothorax. No pleural effusion is appreciated. No acute bone abnormality. IMPRESSION: No acute cardiopulmonary process. Electronically signed by: Alex Gonzales MD (12/10/2018 12:01 PM) [id number] DICTATED AND SIGNED BY: ALEX GONZALES MD DATE: 12/10/18 1158 CC: SUSANNAH CONN MD; TYREE ELY MD ~ [address] [id number] IMAGING REPORT Signed PATIENT: CLINTON MEIER ACCOUNT: [id number] : 1945 LOCATION: ER AGE: 73 SEX: F EXAM STATUS: REG ER ORD. PHYSICIAN: SUSANNAH CONN MD REASON: confusion PROCEDURE: CT HEAD WO CONTRAST CT HEAD INDICATION: confusion COMPARISON: 04/25/2017 Exposure: One or more of the following individualized dose reduction techniques were utilized for this examination: 1. Automated exposure control 2. Adjustment of the mA and/or kV according to patient size 3. Use of iterative reconstruction technique TECHNIQUE: 5 mm contiguous axial images were obtained from the skull base to the vertex in both bone and soft tissue algorithm. FINDINGS: Moderate bilateral periventricular white matter hypodensities likely chronic small vessel ischemic disease. No evidence of acute intracranial hemorrhage. No extra-axial fluid collections. No mass effect or midline shift. Ventricular size is appropriate. Basal cisterns are patent. No fractures identified.Davis-white differentiation is preserved.Globes and orbits are within normal limits. Paranasal sinuses and mastoid air cells are clear. IMPRESSION: 1. No acute intracranial findings. 2. Moderate bilateral periventricular white matter hypodensities likely chronic small vessel ischemic disease. Electronically signed by: Cornel Renee MD (12/10/2018 1:01 PM) [id number] DICTATED AND SIGNED BY: CORNEL RENEE MD DATE: 12/10/18 1251 CC: SUSANNAH CONN MD; TYREE ELY MD ~ [address] [id number] IMAGING REPORT Signed PATIENT: CLINTON MEIER ACCOUNT: [id number] : 1945 LOCATION: ER AGE: 73 SEX: F EXAM STATUS: REG ER ORD. PHYSICIAN: SUSANNAH CONN MD REASON: confusion PROCEDURE: CT ABDOMEN PELVIS WO CONTRAST PQRS Compliance Statement: One or more of the following individualized dose reduction techniques were utilized for this examination: 1. Automated exposure control 2. Adjustment of the mA and/or kV according to patient size 3. Use of iterative reconstruction technique CT ABDOMEN PELVIS WO CONTRAST Clinical Indication: abd pain, recent SBO Comparison: CT abdomen and pelvis without contrast, 11/30/2018. Technique: Helical CT imaging of the abdomen and pelvis is performed without IV or oral contrast. Findings: Evaluation of solid organs and bowel is limited without oral and IV contrast, decreasing sensitivity for detection of pathology. There is mild atelectasis or scarring in the bilateral lung bases. Calcified granulomas posterior left lower lobe. Mucus plugging in the posterior right lower lobe. Bilateral breast implants, partially imaged. Cardiac size normal. Cholecystectomy. Liver, spleen, and pancreas are normal. Adrenal gland hyperplasia. Large atherosclerotic calcifications of the abdominal aorta. No abdominal aortic aneurysm. Calcifications of the kidneys are mostly vascular. There is no hydronephrosis. There is right extrarenal pelvis. Stomach is mildly distended with fluid and air. No dilated small bowel. Moderate sigmoid colon diverticulosis. No colon wall thickening. Moderate proximal colon stool volume. Small right inguinal hernia contains a loop of small bowel without obstruction. Increased trabeculations of the urinary bladder. Atrophic uterus. No pelvic free fluid. Mild left convexity lumbar scoliosis. There is grade 1/2 anterolisthesis of L5 on S1. There is bilateral L4 spondylolysis. Old compression fracture treated with vertebroplasty of L4. Bilateral sacral plasty is seen. Diffuse demineralization. IMPRESSION: 1. No acute abdominal or pelvic abnormality. 2. Moderate proximal colon stool volume. 3. Moderate sigmoid colon diverticulosis without diverticulitis. Electronically signed by: Alex Gonzales MD (12/10/2018 1:17 PM) [id number] DICTATED AND SIGNED BY: ALEX GONZALES MD DATE: 12/10/18 1300 CC: SUSANNAH CONN MD; TYREE ELY MD ~ Course & Med Decision Making Course & Med Decision Making Pertinent Labs and Imaging studies reviewed. (See chart for details) Evaluation of patient in ER showed 73-year-old female patient with history of recent hospitalization brought in by family members because of confusion and had marked tachycardia without hypertension or fever. Patient was alert and oriented 3 had slow reaction to questions. Patient had lactic acid of 2.9 with more than 40 WBC in UA. Patient treated with IV fluid and antibiotic. Plan to admit patient with diagnosis of sepsis and UTI. Dr. Hernandez accepted admission. Dragon Disclaimer Dragon Disclaimer This electronic medical record was generated, in whole or in part, using a voice recognition dictation system. Departure Departure: Impression: Primary Impression: Sepsis Additional Impressions: Urinary tract infection Altered level of consciousness Therapeutic opioid induced constipation Renal insufficiency Dehydration Hyponatremia Disposition: ADMITTED INPATIENT (at 1325) Admitting Physician: Kelly Hernandez (accepted admission at 1325) Condition: IMPROVED Referrals: TYREE ELY MD (PCP) Problem Qualifiers SUSANNAH CONN MD Dec 10, 2018 12:48
[2018-12-10] MEDS ORDERED: IV NORMAL SALINE 1,000ML 1,000 ML IV ONE (13:00)
--- NOTE | 2018-12-10 13:04 | RAD ---
CT HEAD INDICATION: confusion COMPARISON: 04/25/2017 Exposure: One or more of the following individualized dose reduction techniques were utilized for this examination: 1. Automated exposure control 2. Adjustment of the mA and/or kV according to patient size 3. Use of iterative reconstruction technique TECHNIQUE: 5 mm contiguous axial images were obtained from the skull base to the vertex in both bone and soft tissue algorithm. FINDINGS: Moderate bilateral periventricular white matter hypodensities likely chronic small vessel ischemic disease. No evidence of acute intracranial hemorrhage. No extra-axial fluid collections. No mass effect or midline shift. Ventricular size is appropriate. Basal cisterns are patent. No fractures identified.Dvais-white differentiation is preserved.Globes and orbits are within normal limits. Paranasal sinuses and mastoid air cells are clear. IMPRESSION: 1. No acute intracranial findings. 2. Moderate bilateral periventricular white matter hypodensities likely chronic small vessel ischemic disease. Electronically signed by: Cornel Renee MD (12/10/2018 1:01 PM) [facility]
[2018-12-10 13:17] LABS: CLARITY,URINE CLOUDY; COLOR,URINE YELLOW; GLUCOSE,URINE NEG (NEG)
[2018-12-10 13:18] LABS: BACTERIA,URINE MANY /HPF (0-FEW); BILIRUBIN,URINE NEG (NEG); NITRITE,URINE NEG (NEG); RBC,URINE 0 /HPF (0-2); SQUAMOUS EPITHELIAL CELL,UR FEW /LPF; UROBILINOGEN,URINE 0.2 mg/dL (0.2 mg/dL); WBC,URINE >40 /HPF (0-4)
--- NOTE | 2018-12-10 13:20 | RAD ---
PQRS Compliance Statement: One or more of the following individualized dose reduction techniques were utilized for this examination: 1. Automated exposure control 2. Adjustment of the mA and/or kV according to patient size 3. Use of iterative reconstruction technique CT ABDOMEN PELVIS WO CONTRAST Clinical Indication: abd pain, recent SBO Comparison: CT abdomen and pelvis without contrast, 11/30/2018. Technique: Helical CT imaging of the abdomen and pelvis is performed without IV or oral contrast. Findings: Evaluation of solid organs and bowel is limited without oral and IV contrast, decreasing sensitivity for detection of pathology. There is mild atelectasis or scarring in the bilateral lung bases. Calcified granulomas posterior left lower lobe. Mucus plugging in the posterior right lower lobe. Bilateral breast implants, partially imaged. Cardiac size normal. Cholecystectomy. Liver, spleen, and pancreas are normal. Adrenal gland hyperplasia. Large atherosclerotic calcifications of the abdominal aorta. No abdominal aortic aneurysm. Calcifications of the kidneys are mostly vascular. There is no hydronephrosis. There is right extrarenal pelvis. Stomach is mildly distended with fluid and air. No dilated small bowel. Moderate sigmoid colon diverticulosis. No colon wall thickening. Moderate proximal colon stool volume. Small right inguinal hernia contains a loop of small bowel without obstruction. Increased trabeculations of the urinary bladder. Atrophic uterus. No pelvic free fluid. Mild left convexity lumbar scoliosis. There is grade 1/2 anterolisthesis of L5 on S1. There is bilateral L4 spondylolysis. Old compression fracture treated with vertebroplasty of L4. Bilateral sacral plasty is seen. Diffuse demineralization. IMPRESSION: 1. No acute abdominal or pelvic abnormality. 2. Moderate proximal colon stool volume. 3. Moderate sigmoid colon diverticulosis without diverticulitis. Electronically signed by: Alex Gonzales MD (12/10/2018 1:17 PM) [id number]
[2018-12-10 13:25] LABS: PLT ESTIMATE ADEQUATE (ADEQUATE)
[2018-12-10 13:26] LABS: ANISOCYTOSIS SLIGHT; HYPOCHROMIA SLIGHT; MICROCYTOSIS SLIGHT
[2018-12-10] MEDS ORDERED: TIOT18CA IN (13:51)
[2018-12-10 15:06] VITALS: BP 161/86
[2018-12-10] MEDS: IV NORMAL SALINE 1,000ML 1,000 ML IV SCH ×2 (16:04→22:30)
[2018-12-10] MEDS ORDERED: oxyCODONE/APAP 10/325 1 TAB TABLET PO PRN (18:30)
[2018-12-10] MEDS: oxyCODONE/APAP 10/325 1 TAB TABLET PO PRN (18:32)
[2018-12-10 19:45] VITALS: BP 162/75
[2018-12-10] MEDS ORDERED: ONDANSETRON ODT 4 MG TAB.RAPDIS PO PRN (20:45)
[2018-12-10] MEDS ORDERED: NON FORMULARY ITEM (Fluticasone/Salmeterol (Advair 500-50 Diskus) 1 EACH) IH SCH (21:00)
[2018-12-10] MEDS: CYCLOBENZAPRINE 10 MG TABLET. PO SCH (21:07)
[2018-12-10] MEDS: DONEPEZIL HCL 10 MG TABLET PO SCH (21:07)
[2018-12-10] MEDS: ALBUTEROL SULFATE 2.5 MG/3 ML NEBU. NEB SCH (21:16)
[2018-12-11] MEDS: oxyCODONE/APAP 10/325 1 TAB TABLET PO PRN ×3 (00:31→14:09)
[2018-12-11] MEDS: ALBUTEROL SULFATE 2.5 MG/3 ML NEBU. NEB SCH ×4 (05:01→21:00)
[2018-12-11 06:11] VITALS: BP 174/76
[2018-12-11] MEDS: IV NORMAL SALINE 1,000ML 1,000 ML IV SCH (06:30)
[2018-12-11] MEDS: predniSONE 5 MG TABLET PO SCH (08:37)
[2018-12-11] MEDS: CETIRIZINE HCL 10 MG TABLET PO SCH (08:37)
[2018-12-11] MEDS: FUROSEMIDE 20 MG TABLET PO SCH (08:37)
[2018-12-11] MEDS: CYCLOBENZAPRINE 10 MG TABLET. PO SCH (08:37)
[2018-12-11] MEDS: PANTOPRAZOLE 40 MG TABLET. PO SCH (08:37)
[2018-12-11] MEDS: RALOXIFENE 60 MG TABLET. PO SCH (08:38)
[2018-12-11] MEDS: OLANZapine 2.5 MG TABLET PO SCH (08:38)
[2018-12-11] MEDS: MULTIVITAMIN with MINERAL TABLET. PO SCH (08:38)
[2018-12-11] MEDS: LOSARTAN 50 MG TABLET. PO SCH (08:38)
[2018-12-11] MEDS: BUDESONIDE 0.5 MG/2 ML NEBU NEB SCH ×2 (09:18→21:00)
[2018-12-11 11:21] VITALS: BP 194/71
[2018-12-11] MEDS: clonazePAM 0.5 MG TABLET PO PRN (11:50)
[2018-12-11] MEDS: CYCLOBENZAPRINE 10 MG TABLET. PO PRN (14:09)
[2018-12-11 14:58] VITALS: BP 153/69
--- NOTE | 2018-12-11 16:04 | HP ---
ADMIT DATE: 12/11/2018 HISTORY OF PRESENT ILLNESS: The patient is a 73-year-old female patient, who was brought to the Emergency Room by her because of altered level of consciousness. The patient was admitted recently because of fecal impaction and was discharged home a few days ago and seen by home health care every day. The home health nurse was concerned that the patient was not acting like her normal. The patient's stated that she is eating and drinking well, but staring at the ceiling and was confused and not talking most of the time. However, when she arrived, the patient was alert, oriented x 3, but has pauses when answering question. She denied any complaint. She was extensively investigated in the Emergency Room and was found to be slightly dehydrated. She has lactic acidosis and her urine showed that there are moderate leukocyte esterase with more than 40 wbc's and many bacteria and the patient was admitted with altered mental status, likely due to urinary tract infection. She has also opioid induced constipation, mild renal insufficiency, dehydration and chronic hyponatremia. PAST MEDICAL HISTORY: Significant for hypertension, chronic obstructive pulmonary disease, diverticulosis, cholelithiasis, anemia and hypertension. PAST SURGICAL HISTORY: Unremarkable. FAMILY HISTORY: Noncontributory. SOCIAL HISTORY: She lives with her . She apparently continued to smoke 1-2 cigarettes a day. She drinks alcohol occasionally. She does not use any drugs. REVIEW OF SYSTEMS: As per history of present illness. ALLERGIES: She is allergic to PENICILLIN, SULFA DRUGS, FENTANYL, LEVOFLOXACIN and MORPHINE. MEDICATIONS: She is currently on following medications: She is on cetirizine for Zyrtec 10 mg once a day, Aricept 10 mg daily, cyclobenzaprine 10 mg 3 times a day, valsartan for Diovan 320 mg once a day. She is on oxycodone/APAP for Percocet 10/325 one tablet every 6 hours, clonazepam 0.5 mg 3 times a day, olanzapine 5 mg, she takes 2.5 mg daily, furosemide 10 mg daily. She is on Advair Diskus 500/50 one inhalation twice a day. She is on Daliresp 500 mcg p.o. at bedtime, ondansetron 4 mg every 6-8 hours, Dexilant 1 capsule p.o. daily. She is on prednisone 5 mg daily. She is on Evista 60 mg daily, folic acid with Centrum Silver chewable tablet 1 tablet once a day. PHYSICAL EXAMINATION: GENERAL: On arrival to the Emergency Room, the patient was clearly confused. Somehow slow to respond. She was pale, but no jaundice, cyanosis, or thyromegaly. No jugular venous distension. No limb edema. VITAL SIGNS: Her heart rate was 75. Her blood pressure was 158/72, temperature was 97.5, respiratory rate 20, and oxygen saturation was 98% on room air. HEAD, EYES, EARS, NOSE, AND THROAT: Showed normocephalic, atraumatic. NECK: Supple. HEART: Showed normal first and second heart sounds with no gallop, rub or murmur. CHEST: Clear to auscultation. No crepitation or rhonchi. ABDOMEN: Distended, soft, nontender. No guarding or rigidity. No organomegaly. All hernial orifice intact. Bowel sounds normal. NEUROLOGIC: She was somewhat slow to respond, but was oriented in time, place and person. All his cranial nerves are intact. EXTREMITIES: She moves extremities without difficulty. She normally ambulates without assistance or assistive devices. LABORATORY DATA: On admission showed that her white cell count was 9000, hemoglobin 10, hematocrit 32, MCV 70 and platelet count of 367,000. Her chemistry showed a serum sodium 133, potassium 4.8, chloride 97, bicarbonate 25, anion gap of 11, BUN 27, creatinine 1.3, estimated GFR was 40 mL per minute. Her glucose was 129. Her lactic acid was slightly elevated at 2.9. Calcium was 9.3, magnesium 2.3. Total bilirubin, AST, ALT, alkaline phosphatase were normal. Her total protein was 6.9, albumin 3.5. Her urinalysis showed the urine was yellow, cloudy with a pH of 7, specific gravity of 1.010. The urine was negative for protein, glucose and ketones. There was trace of blood, negative for nitrite. There was moderate amount of leukocyte esterase, no rbc's, and more than 40 wbc's and many bacteria. ASSESSMENT: The patient was admitted with: 1. Altered mental status. 2. Sepsis. 3. Urinary tract infection. 4. Opioid-induced constipation. 5. Acute kidney injury and dehydration. 6. Hyponatremia. PLAN: The patient was started on IV fluid as well as IV Rocephin, antiemetics and we continued all her medication. We will obviously if her oral intake is adequate we can discontinue her IV fluid and await the result of culture and sensitivity. DAISY WANG MD DR: SONNY/guillermo JOB#: [id number] / [id number]
[2018-12-11 19:22] VITALS: BP 169/75
[2018-12-11] MEDS: ROFLUMILAST 500 MCG TABLET PO SCH (22:04)
[2018-12-11] MEDS: DONEPEZIL HCL 10 MG TABLET PO SCH (22:04)
[2018-12-11 22:35] VITALS: BP 188/83
--- NOTE | 2018-12-11 23:07 | PN ---
DATE: 12/11/2018 SUBJECTIVE: The patient is a 73-year-old female patient who was admitted with altered mental status and found to be septic with acute kidney injury as well as urinary tract infection. She was started on IV fluid. She has mild hyponatremia and also on IV Rocephin and she did actually well. When I saw her this morning, she looked well and was clearly in no apparent respiratory distress. She is awake, alert, oriented to time, place, and person. OBJECTIVE: GENERAL: On examining her, she looked somewhat pale. No jaundice, cyanosis, or thyromegaly. No jugular venous distension. No limb edema. VITAL SIGNS: Her heart rate was 77, blood pressure was 194/71, temperature was 97.3, respiratory rate was 18, and oxygen saturation was 97% on room air. The rest of clinical examination was stable, had not really changed. Her intake over the last 24 hours was 3200, output was 1100. LABORATORY DATA: She has had no lab work done this morning, however her lactic acid came down from 2.9 to 1.5. ASSESSMENT: 1. Altered mental status, probably multifactorial. 2. Sepsis due to urinary tract infection. 3. Acute kidney injury. 4. Hyponatremia. 5. Dehydration. PLAN: My plan is to continue with IV antibiotic. Continue with IV fluid. We will obviously await the result of culture and sensitivity and decide on further management accordingly. DAISY WANG MD DR: SONNY/guillermo JOB#: [id number] / [id number]
[2018-12-12] MEDS: oxyCODONE/APAP 10/325 1 TAB TABLET PO PRN ×2 (05:32→20:45)
[2018-12-12] MEDS: ALBUTEROL SULFATE 2.5 MG/3 ML NEBU. NEB SCH ×4 (05:34→20:40)
[2018-12-12 07:03] VITALS: BP 167/77
[2018-12-12 07:36] LABS: HEMATOCRIT 31.9 % (36.0-47.0); HEMOGLOBIN 10.1 g/dL (12.0-15.5); RED BLOOD COUNT 4.52 x10^6/uL (3.50-5.40); RED CELL DISTRIBUTION WIDTH 19.6 % (11.5-14.5); WHITE BLOOD COUNT 9.5 x10^3/uL (4.0-11.0)
[2018-12-12 07:48] LABS: ALBUMIN 3.2 g/dL (3.4-5.0); ALBUMIN/GLOBULIN RATIO 0.8 (1.0-1.7); CALCIUM 9.1 mg/dL (8.5-10.1); GFR 54.1; POTASSIUM 3.9 mmol/L (3.5-5.1); TOTAL BILIRUBIN 0.2 mg/dL (0.2-1.0)
[2018-12-12] MEDS: CYCLOBENZAPRINE 10 MG TABLET. PO PRN (08:05)
[2018-12-12] MEDS: predniSONE 5 MG TABLET PO SCH (08:05)
[2018-12-12] MEDS: MULTIVITAMIN with MINERAL TABLET. PO SCH (08:05)
[2018-12-12] MEDS: CETIRIZINE HCL 10 MG TABLET PO SCH (08:05)
[2018-12-12] MEDS: LACTOBACILLUS RHAMNOSUS GG 1 CAPSULE. PO SCH ×2 (08:05→20:29)
[2018-12-12] MEDS: FUROSEMIDE 20 MG TABLET PO SCH (08:05)
[2018-12-12] MEDS: PANTOPRAZOLE 40 MG TABLET. PO SCH (08:05)
[2018-12-12] MEDS: OLANZapine 2.5 MG TABLET PO SCH (08:05)
[2018-12-12] MEDS: clonazePAM 0.5 MG TABLET PO PRN ×2 (08:06→20:29)
[2018-12-12] MEDS: LOSARTAN 50 MG TABLET. PO SCH (08:06)
[2018-12-12] MEDS: RALOXIFENE 60 MG TABLET. PO SCH (08:06)
[2018-12-12] MEDS: BUDESONIDE 0.5 MG/2 ML NEBU NEB SCH ×2 (10:12→20:41)
[2018-12-12 11:20] VITALS: BP 141/75
[2018-12-12 16:14] VITALS: BP 153/71
--- NOTE | 2018-12-12 18:47 | PN ---
DATE: 12/12/2018 SUBJECTIVE: The patient is resting slightly propped up in bed, in no apparent respiratory distress. She is sleepy, but arousable. On questioning her, denied any complaint. PHYSICAL EXAMINATION: GENERAL: When I examined her, she looked pale, but no jaundice, cyanosis or thyromegaly. No jugular venous distension. No lower limb edema. VITAL SIGNS: Her heart rate was 82, blood pressure was 141/75, temperature was 97.7, respiratory rate was 18 and oxygen saturation was 99%. HEAD, EYES, EARS, NOSE AND THROAT: Showed she is normocephalic and atraumatic. NECK: Supple. HEART: Showed normal first and second heart sounds with no gallop, rub or murmur. CHEST: Clear to auscultation. No crepitation or rhonchi. ABDOMEN: Distended, soft and nontender. NEUROLOGIC: She is sleepy, but arousable. All cranial nerves are intact. She moves extremities without difficulty. She ambulates without assistance or assistive devices. Her intake over the last 24 hours was 3200, output was 1100. LABORATORY WORK: Showed a serum sodium of 132, potassium 3.9, chloride 98, bicarbonate 23, anion gap of 11, BUN 15, creatinine 1, estimated GFR was 54 mL per minute. Her glucose was 92, lactic acid is down to 1.5 and calcium was 9.1. Total bilirubin, AST, ALT, alkaline phosphatase were normal. Total protein was 7, albumin was 3.2. Her urine culture has grown more than 100,000 colony forming units per mL of Escherichia colitis and the sensitivity is still pending at the time of this dictation. Her blood cultures is negative. ASSESSMENT: 1. Altered mental status probably multifactorial. 2. Sepsis, urinary tract infection with a growth of more than 100,000 colony forming units per mL. 3. Acute kidney injury, resolving. Her creatinine came down from 1.3 down to 1. 4. Hyponatremia. It is chronically on the lower side. 5. Dehydration, resolving. PLAN: I will probably discontinue the IV fluid. Continue with IV antibiotic for the time being. Await sensitivity. Once we have that the patient can be discharged on oral antibiotic. The patient is excessively sleepy and she is on a lot of medication, sedatives including Flexeril, olanzapine. She is also on clonazepam, oxycodone, and we will have to discuss with the patient tomorrow and her family that she is on too much sedatives. DAISY WANG MD DR: SONNY/guillermo JOB#: [id number] / [id number]
[2018-12-12 19:47] VITALS: BP 174/83
[2018-12-12] MEDS: ROFLUMILAST 500 MCG TABLET PO SCH (20:29)
[2018-12-12] MEDS: DONEPEZIL HCL 10 MG TABLET PO SCH (20:29)
[2018-12-12 23:24] VITALS: BP 163/78
[2018-12-13] MEDS: oxyCODONE/APAP 10/325 1 TAB TABLET PO PRN ×2 (02:14→08:24)
[2018-12-13] MEDS: CYCLOBENZAPRINE 10 MG TABLET. PO PRN (02:14)
[2018-12-13] MEDS: ALBUTEROL SULFATE 2.5 MG/3 ML NEBU. NEB SCH ×2 (05:11→11:35)
[2018-12-13 06:31] VITALS: BP 144/69
[2018-12-13 07:01] LABS: CALCIUM 9.1 mg/dL (8.5-10.1); CREATININE 0.9 mg/dL (0.6-1.0); POTASSIUM 3.8 mmol/L (3.5-5.1)
[2018-12-13] MEDS: predniSONE 5 MG TABLET PO SCH (08:24)
[2018-12-13] MEDS: LACTOBACILLUS RHAMNOSUS GG 1 CAPSULE. PO SCH (08:24)
[2018-12-13] MEDS: PANTOPRAZOLE 40 MG TABLET. PO SCH (08:24)
[2018-12-13] MEDS: OLANZapine 2.5 MG TABLET PO SCH (08:24)
[2018-12-13] MEDS: FUROSEMIDE 20 MG TABLET PO SCH (08:24)
[2018-12-13] MEDS: clonazePAM 0.5 MG TABLET PO PRN (08:24)
[2018-12-13] MEDS: MULTIVITAMIN with MINERAL TABLET. PO SCH (08:25)
[2018-12-13] MEDS: CETIRIZINE HCL 10 MG TABLET PO SCH (08:25)
[2018-12-13] MEDS: RALOXIFENE 60 MG TABLET. PO SCH (08:25)
[2018-12-13] MEDS: LOSARTAN 50 MG TABLET. PO SCH (08:25)
[2018-12-13 10:50] VITALS: BP 166/74
[2018-12-13] MEDS: BUDESONIDE 0.5 MG/2 ML NEBU NEB SCH (11:35)
[2018-12-13] MEDS ORDERED: CEFU500T46 PO (13:21)
--- NOTE | 2018-12-13 14:03 | DS ---
DATE OF DISCHARGE: 12/13/2018 HOSPITAL COURSE: The patient is a 73-year-old female patient, who was admitted with altered mental status, probably multifactorial. She is on multiple sedatives and pain medication. She was also found to have urinary tract infection and her urine culture has eventually grew more than 100,000 colony forming units per mL of Escherichia coli sensitive to almost all antibiotics. Unfortunately, she is allergic to PENICILLIN, LEVOFLOXACIN, and SULFA. Neither the patient nor her knows exactly what happened, what kind of allergy to LEVOFLOXACIN and SULFA DRUGS, but both noted she has almost angioneurotic edema when she takes PENICILLIN. She has tolerated cephalosporin multiple times before and she was treated with ceftriaxone without any side effects and therefore I switched her to cefuroxime 500 mg twice a day for 5 more days. I had a lengthy discussion with her and her about the amount of medication that she is taking including Zyprexa, Flexeril, clonazepam and Percocet and I managed to convince her to cut down at least the Flexeril to 5 mg instead of 10 and to take it as needed. PHYSICAL EXAMINATION: GENERAL: When I saw her this afternoon, she was sitting comfortably in her chair, in no apparent respiratory distress. She was somewhat pale, but no jaundice, cyanosis, or thyromegaly. No jugular venous distension. No lower limb edema. VITAL SIGNS: Her heart rate was 84, blood pressure was 166/74, temperature was 96.8, respiratory rate was 20 and oxygen saturation was 96%. HEAD, EYES, EARS, NOSE AND THROAT: Normocephalic, atraumatic. NECK: Supple. HEART: Showed normal first and second heart sounds. No gallop, rub or murmur. CHEST: Clear to auscultation. No crepitation or rhonchi. ABDOMEN: Distended, soft, nontender. No guarding or rigidity. No organomegaly. All hernial orifice intact. Bowel sounds normal. NEUROLOGIC: She is awake, alert, at times seemed to be confused, but all the cranial nerves intact. She moves extremities without difficulty. Her intake over the last 24 hours was 850, output was 600. LABORATORY DATA: As of yesterday her white cell count was 9500, hemoglobin 10, hematocrit 32, MCV 71, and platelet count 297,000. Her chemistry this morning showed serum sodium 132, potassium 3.8, chloride 97, bicarbonate 22, anion gap of 13, BUN 17, creatinine 0.9, estimated GFR was 61 mL per minute. Her glucose was 87 and calcium was 9.1. DISCHARGE MEDICATIONS: She was discharged home to continue on cefuroxime axetil 500 mg twice a day for 5 more days, cetirizine 10 mg once a day, clonazepam 0.5 mg 3 times a day, Dexilant 60 mg once a day, Aricept 20 mg at bedtime. She is on Advair Diskus 500/50 one inhalation twice a day, Centrum multivitamin tablet chewable 1 tablet once a day, furosemide 10 mg once a day, olanzapine 2.5 mg at bedtime, ondansetron 4 mg every 6-8 hours as needed, oxycodone/acetaminophen 10/325 one tablet every 6-8 hours. She is on prednisone 5 mg once a day, raloxifene for Evista 60 mg once a day, Daliresp 500 mcg once a day and valsartan for Diovan 325 mg once a day. She is also on cyclobenzaprine or Flexeril 5 mg 3 times a day. FINAL DISCHARGE DIAGNOSES: 1. Altered mental status multifactorial including multiple sedatives and hypnotics as well as pain medication. 2. Urinary tract infection with growth of more than 100,000 colony forming units per mL of Escherichia coli, sensitive to cephalosporins. 3. Acute kidney injury, resolving. Her creatinine came down from 1.3-0.8. 4. Hyponatremia, chronic. Her serum sodium is 132 mEq per liter. 5. Dehydration, resolved. DAISY WANG MD DR: SONNY/guillermo JOB#: [id number] / [id number]
--- NOTE | 2018-12-14 08:13 | EKG ---
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
== END 2018-12-13 14:07 | disposition home health service (06) | DRG 871 ==
LOC: ER 11:26 → 1 SOUTH 14:31
PROVIDERS: ADMIT Internal Medicine; ATTEND Internal Medicine
DX: A41.9 Sepsis, unspecified organism (principal); G92 Toxic encephalopathy; N17.0 Acute kidney failure with tubular necrosis; N39.0 Urinary tract infection, site not specified; E87.1 Hypo-osmolality and hyponatremia; E86.0 Dehydration; F41.9 Anxiety disorder, unspecified; K57.90 Diverticulosis of intestine, part unspecified, without perforation or abscess without bleeding; B96.20 Unspecified Escherichia coli [E. coli] as the cause of diseases classified elsewhere; F02.80 Dementia in other diseases classified elsewhere, unspecified severity, without behavioral disturbance, psychotic disturbance, mood disturbance, and anxiety; F17.210 Nicotine dependence, cigarettes, uncomplicated; G30.9 Alzheimer's disease, unspecified; I10 Essential (primary) hypertension; J44.9 Chronic obstructive pulmonary disease, unspecified; K57.30 Diverticulosis of large intestine without perforation or abscess without bleeding; K59.03 Drug induced constipation; T40.2X5A Adverse effect of other opioids, initial encounter; Z88.0 Allergy status to penicillin; Z90.49 Acquired absence of other specified parts of digestive tract
CPT/HCPCS: 36415; 70450; 71045; 74176; 80048; 80053; 81001; 82550; 83605; 83735; 83880; 84484; 85025; 85027; 87040; 87086; 87186; 93005; 94640; 96365; 96366; 99406; J0696; J7512; J7613; J7626; 99285-25; J7030

== ENCOUNTER 2018-12-29 12:15 | Emergency (ER) | payer MEDICARE, OTHER ==
[~2018-12-29] VITALS: Ht 165.1 cm; Wt 45.8 kg
[~2018-12-29 12:15] MED LIST changes: +CEFU500T46 PO; +TIOT18CA IN
[2018-12-29] MEDS ORDERED: IV NORMAL SALINE 1,000ML 1,000 ML IV SCH (12:31)
--- NOTE | 2018-12-29 12:42 | PHYS DOC ---
Past History Past Medical History: Anxiety, Asthma, Constipation, COPD, Hypertension, Other Past Surgical History: Cancer Surgery, Cholecystectomy, Other Alcohol Use: None Drug Use: None Adult General Chief Complaint Chief Complaint: ABDOMINAL PAIN HPI HPI Patient is a 83-year-old female who presents with lower abdominal pain. This started last night. She and family are concerned about possible fecal impaction. She had one approximately a month ago with similar symptoms. The meantime she is also been recently admitted to the hospital with urinary tract infection with sepsis. She developed additional dysuria yesterday and was prescribed antibiotics that she has not yet started. The home health nurse evaluated the patient this morning and recommended that she come to the emergency department. Surgical history is significant for multiple hernia operations.[] Review of Systems Review of Systems Constitutional: Denies fever or chills [] Eyes: Denies change in visual acuity, redness, or eye pain [] HENT: Denies nasal congestion or sore throat [] Respiratory: Denies cough or shortness of breath [] Cardiovascular: No chest pain or palpitations[] GI: See history of present illness[] : Denies dysuria or hematuria [] Musculoskeletal: Denies back pain or joint pain [] Integument: Denies rash or skin lesions [] Neurologic: Denies headache, focal weakness or sensory changes [] Endocrine: Denies polyuria or polydipsia [] All other systems were reviewed and found to be within normal limits, except as documented in this note. Allergies Allergies Allergies Coded Allergies Type Severity Reaction Last Updated Verified fentanyl Allergy Severe 04/24/17 Yes Penicillins Allergy Intermediate 08/11/14 Yes Sulfa (Sulfonamide Antibiotics) Allergy Intermediate 04/25/17 Yes levofloxacin Allergy Intermediate 08/11/14 Yes morphine Allergy Intermediate 11/30/18 Yes Physical Exam Physical Exam Constitutional: Well developed, well nourished, no acute distress, non-toxic appearance. [] HENT: Normocephalic, atraumatic, bilateral external ears normal, oropharynx moist, no oral exudates, nose normal. [] Eyes: PERRLA, EOMI, conjunctiva normal, no discharge. [] Neck: Normal range of motion, no tenderness, supple, no stridor. [] Cardiovascular:Heart rate regular rhythm, no murmur [] Lungs & Thorax: Bilateral breath sounds clear to auscultation [] Abdomen: Bowel sounds normal, soft, no tenderness, no masses, no pulsatile masses. No rebound, no guarding, no rigidity Rectal exam performed with fiberglass quality technician, no stool in the rectal vault, no lesions , no tenderness, no gross bleeding[] Skin: Warm, dry, no erythema, no rash. [] Back: No tenderness, no CVA tenderness. [] Extremities: No tenderness, no cyanosis, no clubbing, ROM intact, no edema. [] Neurologic: Alert and oriented X 3, normal motor function, normal sensory function, no focal deficits noted. [] Psychologic: Affect normal, judgement normal, mood normal. [] EKG EKG [] Radiology/Procedures Radiology/Procedures Examination: CT ABD PELV W/ORAL IV CONTRAST History: LOWER ABDOMINAL PAIN Comparison/Correlation: 12/10/2018 and 11/30/2018 CT abdomen and pelvis without contrast exams Findings: Axial images of the abdomen and pelvis were obtained following IV contrast. Sagittal and coronal reformatted images provided. Oral contrast was administered. Left costophrenic sulcus calcified granulomas present. Left breast implant is partially seen. Liver is unremarkable. Calcified granulomas involve the spleen. Cholecystectomy noted. Pancreas is normal. Adrenal glands are unremarkable. Left renal lower pole cyst is present. Moderate right renal atrophy noted. Low-attenuation lesion involving the right kidney which may represent a cyst is too small to characterize. No suspicious features. Cholecystectomy noted. Small umbilical hernia contains omental fat. No inflammatory change about the cecum. Circumferential thickening of the sigmoid colon is present. At the mid sigmoid colon on axial image 39, circumferential thickening is present with subtle stranding posteriorly. No loculated collection. No extraluminal gas. No enlarged abdominal or pelvic lymph nodes. No ascites or pelvic free fluid. Significant calcific involvement of the infrarenal abdominal aorta and iliac arteries noted. Urinary bladder is unremarkable. Bilateral sacral plasty noted. L4 vertebroplasty. Grade 1-2 anterolisthesis of L5 over S1. Absence of posterior elements at L5. Correlate with previous intervention. Bilateral L5 pars fractures at L5. This is noted on prior exams. Impression: Mid sigmoid colon diverticulitis. No abscess.[] Course & Med Decision Making Course & Med Decision Making Pertinent Labs and Imaging studies reviewed. (See chart for details) ED course: Patient arrived, was placed in bed, and tolerated exam well. She was transported to and from [place] after tolerating oral contrast without any complications. After the return of the lab and imaging findings, these were discussed with the patient and her family who voiced understanding. All questions were answered. Patient was discharged in improved condition. Medical decision making: Patient appears to have diverticulitis, no evidence of sepsis, urinary tract infection, fecal impaction, appendicitis, perforation, obstruction, nor other significant intra-abdominal pathology. Patient is already prescribed trimethoprim sulfamethoxazole, we will add Flagyl to this regimen to cover for diverticulitis[] Dragon Disclaimer Dragon Disclaimer This electronic medical record was generated, in whole or in part, using a voice recognition dictation system. Departure Departure: Impression: Primary Impression: Diverticulitis Disposition: HOME, SELF-CARE Condition: IMPROVED Referrals: TYREE ELY MD (PCP) Follow-up in 2 days Patient Instructions: Diverticulitis Additional Instructions: Follow-up with your regular doctor in 2 days. Eat a high-fiber diet. Avoid nuts and seeds in your diet. Take your medication as prescribed including the one that was prescribed yesterday by your primary care physician. Return to the ER if worsening pain or any other concerns. Scripts Hyoscyamine Sulfate (LEVSIN) 0.125 Mg Tablet 0.125 MG PO QID for abdominal pain/cramping, #30 TAB Prov: ANGELA COSTA DO 12/29/18 Meloxicam (MELOXICAM) 7.5 Mg Tablet 7.5 MG PO DAILY for PAIN, #20 TAB Prov: ANGELA COSTA DO 12/29/18 Metronidazole (FLAGYL) 500 Mg Tablet 500 MG PO QID for diverticulitis for 10 Days, #40 TAB Prov: ANGELA COSTA DO 12/29/18 ANGELA COSTA DO Dec 29, 2018 12:42
[2018-12-29] MEDS ORDERED: HYOSCYAMINE 0.125 MG TAB.RAPDIS PO ONE (12:45)
[2018-12-29] MEDS ORDERED: METOCLOPRAMIDE HCL 10 MG/2 ML VIAL. IV ONE (12:45)
[2018-12-29] MEDS ORDERED: ONDANSETRON PF 4 MG/2 ML VIAL. IV ONE (12:45)
[2018-12-29] MEDS ORDERED: IOHEXOL 240 MG/ML 50ML VIAL. ONE (12:52)
[2018-12-29 12:56] LABS: BASO % 0 % (0-3); EOS % 0 % (0-3); HEMATOCRIT 30.8 % (36.0-47.0); HEMOGLOBIN 9.9 g/dL (12.0-15.5); LYMPH # 0.5 x10^3/uL (1.0-4.8); LYMPH % 5 % (24-48); MEAN CORPUSCULAR HEMOGLOBIN 22 pg (25-35); MEAN CORPUSCULAR HGB CONC 32 g/dL (31-37); MEAN CORPUSCULAR VOLUME 69 fL (79-100); MONO # 0.5 x10^3/uL (0.0-1.1); MONO % 5 % (0-9); NEUT # 9.5 x10^3uL (1.8-7.7); NEUT % 90 % (31-73); PLATELET COUNT 353 x10^3/uL (140-400); RED BLOOD COUNT 4.43 x10^6/uL (3.50-5.40); RED CELL DISTRIBUTION WIDTH 18.6 % (11.5-14.5); WHITE BLOOD COUNT 10.6 x10^3/uL (4.0-11.0)
[2018-12-29 13:06] LABS: ALBUMIN 3.4 g/dL (3.4-5.0); CALCIUM 9.2 mg/dL (8.5-10.1); CREATININE 1.3 mg/dL (0.6-1.0); GFR 39.9; POTASSIUM 4.9 mmol/L (3.5-5.1); TOTAL BILIRUBIN 0.2 mg/dL (0.2-1.0); TOTAL PROTEIN 6.9 g/dL (6.4-8.2)
[2018-12-29] MEDS ORDERED: IOHEXOL 240 MG/ML 50ML VIAL. PO ONE (13:15)
[2018-12-29] MEDS ORDERED: IOHEXOL 300 MG/ML 75 ML VIAL. IV ONE (13:15)
[2018-12-29] MEDS ORDERED: CONTRAST GIVEN MC PRN (13:15)
[2018-12-29 13:25] VITALS: BP 151/74
[2018-12-29 13:28] LABS: BACTERIA,URINE 0 /HPF (0-FEW); BILIRUBIN,URINE NEG (NEG); CLARITY,URINE CLEAR; COLOR,URINE YELLOW; GLUCOSE,URINE NEG (NEG); NITRITE,URINE NEG (NEG); RBC,URINE 0 /HPF (0-2); SQUAMOUS EPITHELIAL CELL,UR FEW /LPF; UROBILINOGEN,URINE 0.2 mg/dL (0.2 mg/dL); WBC,URINE OCC /HPF (0-4)
[2018-12-29 13:36] LABS: ANISOCYTOSIS SLIGHT; HYPOCHROMIA MOD; MICROCYTOSIS MOD; OVALOCYTES OCC; PLT ESTIMATE ADEQUATE (ADEQUATE); POLYCHROMASIA SLIGHT
[2018-12-29 13:37] LABS: SCHISTOCYTES OCC
[2018-12-29 13:53] LABS: FECAL OB PT POSITIVE (NEG)
--- NOTE | 2018-12-29 14:19 | RAD ---
Examination: CT ABD PELV W/ORAL IV CONTRAST History: LOWER ABDOMINAL PAIN Comparison/Correlation: 12/10/2018 and 11/30/2018 CT abdomen and pelvis without contrast exams Findings: Axial images of the abdomen and pelvis were obtained following IV contrast. Sagittal and coronal reformatted images provided. Oral contrast was administered. Left costophrenic sulcus calcified granulomas present. Left breast implant is partially seen. Liver is unremarkable. Calcified granulomas involve the spleen. Cholecystectomy noted. Pancreas is normal. Adrenal glands are unremarkable. Left renal lower pole cyst is present. Moderate right renal atrophy noted. Low-attenuation lesion involving the right kidney which may represent a cyst is too small to characterize. No suspicious features. Cholecystectomy noted. Small umbilical hernia contains omental fat. No inflammatory change about the cecum. Circumferential thickening of the sigmoid colon is present. At the mid sigmoid colon on axial image 39, circumferential thickening is present with subtle stranding posteriorly. No loculated collection. No extraluminal gas. No enlarged abdominal or pelvic lymph nodes. No ascites or pelvic free fluid. Significant calcific involvement of the infrarenal abdominal aorta and iliac arteries noted. Urinary bladder is unremarkable. Bilateral sacral plasty noted. L4 vertebroplasty. Grade 1-2 anterolisthesis of L5 over S1. Absence of posterior elements at L5. Correlate with previous intervention. Bilateral L5 pars fractures at L5. This is noted on prior exams. Impression: Mid sigmoid colon diverticulitis. No abscess. PQRS Compliance Statement: One or more of the following individualized dose reduction techniques were utilized for this examination: 1. Automated exposure control 2. Adjustment of the mA and/or kV according to patient size 3. Use of iterative reconstruction technique Electronically signed by: Jarrell Munoz MD (12/29/2018 2:16 PM) [id number]
[2018-12-29] MEDS ORDERED: HYOS0.1264 PO (14:27)
[2018-12-29] MEDS ORDERED: MELO7.5T29 PO (14:27)
[2018-12-29] MEDS ORDERED: METR500T PO (14:27)
== END 2018-12-29 14:35 | disposition home or self-care (01) ==
LOC: ER 12:15
DX: K57.32 Diverticulitis of large intestine without perforation or abscess without bleeding (principal); K42.9 Umbilical hernia without obstruction or gangrene; F41.9 Anxiety disorder, unspecified; J44.9 Chronic obstructive pulmonary disease, unspecified; I10 Essential (primary) hypertension; Z90.49 Acquired absence of other specified parts of digestive tract; Z88.8 Allergy status to other drugs, medicaments and biological substances; Z88.2 Allergy status to sulfonamides; Z88.0 Allergy status to penicillin; Z88.5 Allergy status to narcotic agent; Z88.1 Allergy status to other antibiotic agents
CPT/HCPCS: 36415; 74177; 80053; 81001; 82274; 83690; 85025; 85610; 96361; 96374; 99284; J2765; Q9966; Q9967; P9612; J7030

== ENCOUNTER 2019-01-19 10:07 | Emergency (ER) | payer MEDICARE, OTHER ==
[~2019-01-19 10:07] MED LIST changes: +HYOS0.1264 PO; +MELO7.5T29 PO; +METR500T PO
--- NOTE | 2019-01-19 11:29 | RAD ---
CT HEAD INDICATION: FALL, DEMENTIA, PT ON BLOOD THINNERS COMPARISON: 12/10/2018 Exposure: One or more of the following individualized dose reduction techniques were utilized for this examination: 1. Automated exposure control 2. Adjustment of the mA and/or kV according to patient size 3. Use of iterative reconstruction technique TECHNIQUE: 5 mm contiguous axial images were obtained from the skull base to the vertex in both bone and soft tissue algorithm. FINDINGS: Moderate bilateral periventricular white matter hypodensities likely chronic small vessel ischemic disease. Small hypodensity identified in the left frontal lobe is similar to prior exam likely old infarct. No evidence of acute intracranial hemorrhage. No extra-axial fluid collections. No mass effect or midline shift. Ventricular size is appropriate. Basal cisterns are patent. No fractures identified.Davis-white differentiation is preserved.Globes and orbits are within normal limits. Mild mucosal thickening identified in the posterior right ethmoidal sinus. IMPRESSION: 1. No acute intracranial findings. Electronically signed by: Cornel Renee MD (01/19/2019 11:27 AM) [facility]
--- NOTE | 2019-01-19 11:35 | RAD ---
Indications: Fall. Bilateral arm pain and bilateral hip pain. 2 view study of the left humerus: No acute fracture or lytic process or dislocation is seen. No AC joint separation left shoulder seen. 2 view study of the right humerus: There is a nondisplaced impacted fracture of the proximal metaphysis of the right humerus. No dislocation or lytic process is seen. No AC joint separation of the right shoulder is seen. IMPRESSION: Nondisplaced impacted fracture of the proximal right humerus. Frog-leg view of both hips and AP view of the pelvis-total of 3 views: No acute fracture of either hip is seen. No diastases of the symphysis pubis or either SI joint is seen. No lytic process is evident. Methylmethacrylate treatment of fractures of both sides of the sacrum and compression fracture of L5 is evident. No other fracture of the pelvic bones is seen. IMPRESSION: No acute fracture of the pelvis or either hip. Electronically signed by: Timmy Alaniz MD (01/19/2019 11:32 AM) [id number]
--- NOTE | 2019-01-19 11:48 | PHYS DOC ---
Past History Past Medical History: Anxiety, Asthma, COPD, Dementia, Other Past Surgical History: Other Alcohol Use: None Drug Use: Opiates Adult General Chief Complaint Chief Complaint: LOWEREXTREMITY INJURY HPI HPI Patient is a 73 year old female who presents with her to the emergency department for evaluation of shoulder pain after being involved in a fall. states that the patient has history of dementia and has had previous falls. Patient is a poor historian. He states that he heard the patient fall out of her chair and went immediately to her. She was on the floor. Complaining of pain to her left shoulder initially. Also complained of pain to the bilateral hips. Has history of chronic pain secondary to degenerative arthritis and currently takes Percocet for pain at home. Patient last received Percocet shortly prior to arrival. On my evaluation, the patient states that she is having pain to her right shoulder. Patient also noted to be on blood thinners. Review of Systems Review of Systems Caveat: History of dementia, poor historian Constitutional: Denies fever or chills [] Eyes: Denies change in visual acuity, redness, or eye pain [] HENT: Denies nasal congestion or sore throat [] Respiratory: Denies cough or shortness of breath [] Cardiovascular: Denies chest pain or edema[] GI: Denies abdominal pain, nausea, vomiting, bloody stools or diarrhea [] : Denies dysuria or hematuria [] Musculoskeletal: Right shoulder pain, bilateral hip pain[] Integument: Denies rash or skin lesions [] Neurologic: Denies headache, focal weakness or sensory changes [] All other systems were reviewed and found to be within normal limits, except as documented in this note. Allergies Allergies Allergies Coded Allergies Type Severity Reaction Last Updated Verified fentanyl Allergy Severe 01/19/19 Yes Penicillins Allergy Intermediate 01/19/19 Yes Sulfa (Sulfonamide Antibiotics) Allergy Intermediate 01/19/19 Yes levofloxacin Allergy Intermediate 01/19/19 Yes morphine Allergy Intermediate 01/19/19 Yes Physical Exam Physical Exam Constitutional: Alert, afebrile, no acute distress. [] HENT: Normocephalic, atraumatic, bilateral external ears normal, oropharynx moist, no oral exudates, nose normal. [] Eyes: PERRLA, EOMI, conjunctiva normal, no discharge. [] Neck: Normal range of motion, no tenderness, supple, no stridor. [] Cardiovascular:Heart rate regular rhythm, no murmur [] Lungs & Thorax: Bilateral breath sounds clear to auscultation [] Abdomen: Bowel sounds normal, soft, no tenderness, no masses, no pulsatile masses. [] Skin: Warm, dry, multiple evolving ecchymoses to the extensor surfaces of arms and legs, no erythema, no rash. [] Back: No tenderness, no CVA tenderness. [] Extremities: Right shoulder tenderness to palpation, unable to test range of motion in right shoulder secondary to pain, mild tenderness to bilateral greater trochanters, no cyanosis, no clubbing, ROM intact, no edema. [] Neurologic: Alert, disoriented to time and place, normal motor function, normal sensory function, no focal deficits noted. [] Current Patient Data Vital Signs Vital Signs Date Time Temp Pulse Resp B/P (MAP) Pulse Ox O2 Delivery O2 Flow Rate FiO2 01/19/19 10:26 98.6 82 18 92 Room Air Lab Results Not performed EKG EKG Not performed[] Radiology/Procedures Radiology/Procedures [address] [address] IMAGING REPORT Signed PATIENT: CLINTON MEIER ACCOUNT: [id number] : 1945 LOCATION: ER AGE: 73 SEX: F EXAM STATUS: REG ER ORD. PHYSICIAN: SUSAN ANTON MD REASON: fall, bilateral hip pain PROCEDURE: HIP BILATERAL WITH PELVIS Indications: Fall. Bilateral arm pain and bilateral hip pain. 2 view study of the left humerus: No acute fracture or lytic process or dislocation is seen. No AC joint separation left shoulder seen. 2 view study of the right humerus: There is a nondisplaced impacted fracture of the proximal metaphysis of the right humerus. No dislocation or lytic process is seen. No AC joint separation of the right shoulder is seen. IMPRESSION: Nondisplaced impacted fracture of the proximal right humerus. Frog-leg view of both hips and AP view of the pelvis-total of 3 views: No acute fracture of either hip is seen. No diastases of the symphysis pubis or either SI joint is seen. No lytic process is evident. Methylmethacrylate treatment of fractures of both sides of the sacrum and compression fracture of L5 is evident. No other fracture of the pelvic bones is seen. IMPRESSION: No acute fracture of the pelvis or either hip. Electronically signed by: Samantha Alaniz MD (01/19/2019 11:32 AM) [facility] DICTATED AND SIGNED BY: SAMANTHA ALANIZ MD DATE: 01/19/19 1132 CC: SUSAN ANTON MD; TYREE ELY MD ~ [place] [address] IMAGING REPORT Signed PATIENT: CLINTON MEIER ACCOUNT: [id number] : 1945 LOCATION: ER AGE: 73 SEX: F EXAM STATUS: REG ER ORD. PHYSICIAN: SUSAN ANTNO MD REASON: fall, dementia, on blood thinners PROCEDURE: CT HEAD WO CONTRAST CT HEAD INDICATION: FALL, DEMENTIA, PT ON BLOOD THINNERS COMPARISON: 12/10/2018 Exposure: One or more of the following individualized dose reduction techniques were utilized for this examination: 1. Automated exposure control 2. Adjustment of the mA and/or kV according to patient size 3. Use of iterative reconstruction technique TECHNIQUE: 5 mm contiguous axial images were obtained from the skull base to the vertex in both bone and soft tissue algorithm. FINDINGS: Moderate bilateral periventricular white matter hypodensities likely chronic small vessel ischemic disease. Small hypodensity identified in the left frontal lobe is similar to prior exam likely old infarct. No evidence of acute intracranial hemorrhage. No extra-axial fluid collections. No mass effect or midline shift. Ventricular size is appropriate. Basal cisterns are patent. No fractures identified.Davis-white differentiation is preserved.Globes and orbits are within normal limits. Mild mucosal thickening identified in the posterior right ethmoidal sinus. IMPRESSION: 1. No acute intracranial findings. Electronically signed by: Cornel Renee MD (01/19/2019 11:27 AM) [facility] DICTATED AND SIGNED BY: CORNEL RENEE MD DATE: 01/19/19 1127 CC: SUSAN ANTON MD; TYREE ELY MD ~ [] Course & Med Decision Making Course & Med Decision Making Pertinent Labs and Imaging studies reviewed. (See chart for details) Patient noted to have a right proximal humerus fracture. Patient placed in an arm sling for treatment. Patient continues to be at baseline mental status. After talking with a since family, they would like the patient to be able to be discharged home. Vital signs are stable and patient is in no acute distress at this time. Patient will be discharged in right arm sling with recommended follow-up with Dr. Salinas in 2 weeks for reevaluation. Also recommended follow- up with primary doctor within the next 5 days for ER follow-up. Advised return to the emergency department for any worsening symptoms. Recommended continued use of home pain medication regimen. Family voiced understanding and in agreement with treatment plan.[] Dragon Disclaimer Dragon Disclaimer This electronic medical record was generated, in whole or in part, using a voice recognition dictation system. Departure Departure: Impression: Primary Impression: Proximal humerus fracture Additional Impression: Fall from chair Disposition: 01 HOME, SELF-CARE Condition: STABLE Referrals: TYREE ELY MD (PCP) BIPIN SALINAS MD Patient Instructions: Shoulder Fracture (Proximal Humerus or Glenoid)-[facility] Additional Instructions: Follow-up with Dr. Salinas of orthopedic surgery in the next 2 weeks for reevaluation. Follow-up with your primary doctor in 5 days for ER follow-up. Return to emergency department for any worsening symptoms. Problem Qualifiers Primary Impression: Proximal humerus fracture Encounter type: initial encounter Fracture type: closed Fracture morphology : unspecified fracture morphology Laterality: right Qualified Codes: S42.201A - Unspecified fracture of upper end of right humerus, initial encounter for closed fracture Additional Impression: Fall from chair Encounter type: initial encounter Qualified Codes: W07.XXXA - Fall from chair, initial encounter SUSAN ANTON MD Jan 19, 2019 11:48
[2019-01-19 12:16] VITALS: BP 151/80
== END 2019-01-19 12:20 | disposition home or self-care (01) ==
LOC: ER 10:07
DX: S42.201A Unspecified fracture of upper end of right humerus, initial encounter for closed fracture (principal); M25.552 Pain in left hip; M25.551 Pain in right hip; F03.90 Unspecified dementia, unspecified severity, without behavioral disturbance, psychotic disturbance, mood disturbance, and anxiety; F41.9 Anxiety disorder, unspecified; J44.9 Chronic obstructive pulmonary disease, unspecified; Z79.01 Long term (current) use of anticoagulants; Z88.0 Allergy status to penicillin; Z88.2 Allergy status to sulfonamides; Z88.1 Allergy status to other antibiotic agents; Z88.5 Allergy status to narcotic agent; Z88.8 Allergy status to other drugs, medicaments and biological substances; W07.XXXA Fall from chair, initial encounter; Y93.89 Activity, other specified; Y92.89 Other specified places as the place of occurrence of the external cause; Y99.8 Other external cause status
CPT/HCPCS: 70450; 73060; 73521; 99284-25

== ENCOUNTER → 2019-02-17 | Outpatient (CLI) | payer MEDICARE, OTHER ==
[2019-01-19 12:16] VITALS: BP 151/80
--- NOTE | 2019-02-17 18:06 | RAD ---
2 view study of the right shoulder Clinical indications: Follow-up of fracture. COMPARISON: January 19, 2019. FINDINGS: Again seen is an impacted fracture of the proximal right humerus. Callus formation is seen. The fracture is not yet completely healed however. No lytic process is seen. IMPRESSION: Healing proximal right humeral fracture. Electronically signed by: Timmy Alaniz MD (02/17/2019 6:03 PM) [facility]
== END | disposition home or self-care (01) ==
LOC: RAD 14:51
PROVIDERS: ATTEND Orthopaedic Surgery
DX: S42.294A Other nondisplaced fracture of upper end of right humerus, initial encounter for closed fracture (principal); X58.XXXA Exposure to other specified factors, initial encounter; Y93.89 Activity, other specified; Y92.89 Other specified places as the place of occurrence of the external cause; Y99.8 Other external cause status
CPT/HCPCS: 73030